=== PATIENT | male | born 1945 | race Caucasian/White ===

== ENCOUNTER 2020-11-12 11:41 | Emergency (ER) | payer OTHER, MEDICARE, SELFPAY ==
[2020-11-12 11:44] VITALS: BP 115/71; PULSE 63; RESP 18; TEMP 36.7; O2SAT 95; BMI 31.8
--- NOTE | 2020-11-12 11:48 | XR_ITS ---
WS: [id number] Exam: XR chest 2V* [id number] Date/Time of Exam: 11/12/2020 11:48 AM Reason For Exam: sob No previous. The lungs are fully inflated. 1 cm partially obscured nodule in the lateral aspect of the right upper lobe. The lungs are otherwise clear. No pleural effusions. Heart size is top limits normal. The medi astinum is not widened. Regional bony elements are intact. A cardiac pacer superimposes the left ches t. Recommendations: Comparison with any prior chest radiographs would be helpful for further workup. [facility] erwise nonemergent CT scan of the chest might be considered for further evaluation. XR/XR chest 2V* [id number] IMPRESSION: 1. Partially obscured 1 cm nodule in the lateral aspect of the right upper lobe . 2. No acute process noted.
--- NOTE | 2020-11-12 13:40 | CT_ITS ---
WS: [id number] CT CHEST ANGIOGRAPHY WITH REFORMATS HISTORY: hemoptysis TECHNIQUE: Contiguous axial images are obtained through the chest during arterial injection of intrav enous contrast. Images are reconstructed to evaluate the pulmonary arteries. MIP imaging also reviewe d. All CT scans at [facility] use at least one of these dose optimization techniques: aut omated exposure control; mA and/or kV adjustment per patient size (includes targeted exams where dose is matched to clinical indication); or iterative reconstruction. CONTRAST: Omnipaque 350; 95 mL IV. DLP: 638.1 mGy.cm COMPARISON: Chest radiograph 11/12/2020 Good opacification of the pulmonary arteries. No central filling defects or pulmonary emboli. Filling defects begin within the segmental branches of the lower lobes. Slightly greater filling defects in the pulmonary arterial system on the RIGHT. These are nonocclusive to near occlusive defects. No RIGH T heart strain. No pericardial or pleural effusions. Noncalcified well-circumscribed nodule RIGHT upper lobe measures 12 mm in diameter. Bibasilar and RIG HT middle lobe opacifications are probably due to pneumonitis. Most significant area of consolidation at the LEFT lung base is progressing towards pneumonia. Several prominent lymph nodes within the med iastinum. LEFT paratracheal lymph node measures 9 mm. Cardiac chambers are slightly enlarged. No nereida cardial pleural effusion. Small hiatal hernia. Cholelithiasis without acute cholecystitis. Incompletely visualized exophytic cystic mass from the RIGHT kidney measures 6.5 x 6.6 cm. There is a n additional exophytic mass of increased density measuring 1.6 cm from the superior pole LEFT kidney. Mild hyperplasia LEFT adrenal gland. Multiple healed rib fractures in the anterolateral RIGHT thorax. CT/CT angio chest PE protcl [id number] IMPRESSION: 1. Nonocclusive pulmonary emboli in the lower lobes bilaterally, RIGHT greater than LEFT. Some of these emboli may actually be chronic. Cannot confirm all of these filling defects are chronic. 2. Increasing consolidation at the LEFT lung base consistent with developing p neumonia. 3. Mild pneumonitis in the RIGHT middle and RIGHT lower lobe. 4. Noncalcified indeterminate 12 mm RIGHT upper lobe pulmonary nodule. Recomme nd follow-up chest CT in 3 months. 5. Bilateral renal masses. Cannot be further evaluated on this chest CT evalua tion. Recommend follow-up in 3 months at the time of the pulmonary nodule reeva luation. Chest and abdomen CT can be performed at that time.
--- NOTE | 2020-11-12 13:41 | ED_ITS ---
HPI - General Adult General: Chief complaint: Upper Respiratory Infection Stated complaint: COUGHING UP MUCUS AND BLOOD Time Seen by Provider: 11/12/20 13:25 History of Present Illness: HPI narrative: This patient is a 75 year old male presenting with cough, shortness of breath, brown sputum with blood. His symptoms started on 11/05 - with a bad cough - and started to have brown sputum with some blood in it about 4 days ago. He was sent here from the [place] due to concerns for pneumonia. He is former smoker, but quit 28 years ago. He has had colon cancer (2014) and that year and in 2017 he had heart problems leading to an AICD placement. He is on Sotolol and aspirin - no other blood thinners. He has had his first COVID shot - he was supposed to get his second today and that was why he was at the [place] clinic. He didn't get the shot due to his symptoms. No fever. No N/V/D. Onset (ago): week(s) (1) Associated symptoms: Reports cough, dyspnea and malaise; Deny fevers/chills, headache(s), nausea, rash, syncope, vomiting or weakness Review of Systems General: Reports: 10 or more systems reviewed and unremarkable except in HPI and below Const: Reports: malaise Eyes: Denies: change in vision ENMT: Denies: odynophagia Card: Denies: syncope Resp: Reports: dyspnea GI: Denies: nausea or vomiting : Denies: flank pain Musc: Denies: neck pain or back pain Skin/Breast: Denies: rash Neuro: Denies: headache(s), numbness in extremities or weakness in extremities Jemal/Lymph: Denies: easy bruising or easy bleeding PFS ED PFSH: Medical History (Updated 11/12/20 @ 17:46 by Jolanta Mayfield MD) Chronic kidney disease (CKD) Essential (primary) hypertension Gout Hyperlipemia ICD (implantable cardioverter-defibrillator) in place Nonischemic cardiomyopathy Ventricular tachycardia Surgical History History of colon resection Family History Father Cancer Dementia Social History Smoking and tobacco status: former smoker Alcohol intake: current Alcohol intake frequency: holidays/special occasions only Marital status: Current occupational status: retired Physical Exam Const: COMMON NORMALS: no acute distress, patient oriented x3, no limitations and alert GENERAL APPEARANCE: cooperative and comfortable HENMT: HEAD & SCALP: normal to inspection FACE & SINUS: normal facial exam Eye: GENERAL EYE: appearance normal, both eyes and all related structures Neck/C-Spine: COMMON NORMALS: supple, no meningeal signs and no JVD Chest: COMMONS NORMALS: normal inspection of the chest Resp: COMMON NORMALS: normal respiratory effort, No use of accessory muscles and clear to auscultation bilaterally AUSCULTATION: clear to auscultation bilaterally Cardio: COMMON NORMALS: no JVD, regular rate, regular rhythm and No murmurs present (Cardio) RATE: regular rate RHYTHM: regular rhythm GI: COMMON NORMALS: Normal to inspection, nondistended, normoactive bowel sounds present, Soft to palpation and non-tender INSPECTION: Yes normal to inspection AUSCULTATION: Yes normoactive bowel sounds PALPATION: Yes Soft to palpation Back/Pelvis: COMMON NORMALS: thoracic and lumbar spine normal to inspection Extremity: COMMON NORMALS: normal to inspection NARRATIVE EXTREMITY EXAM: ecchymoses on the extensor surfaces Neuro: COMMON NORMALS: patient oriented x3, moves all extremities, no focal motor deficits and no sensory deficits noted SENSORIUM/ORIENTATION: Yes alert MENINGEAL SIGNS: Yes no meningeal signs Psych: COMMON NORMALS: mental status grossly normal, cooperative and normal affect Skin: COMMON NORMALS: no rashes or lesions noted and turgor normal GENERAL SKIN EXAM: no rashes or lesions noted and turgor normal Course ED course: Patient here with concerns about pneumonia. Xray with no clear pneumonia, but CT was done for more thorough eval as well as to further evaluate a nodule in the RUL. On the CT, there was suspicion for very small PEs, acute vs chronic. Patient's oxygenation is good - 95% on RA at rest and with ambulation. He is in no distress. No swelling or pain in the legs. We discussed hospitalization vs outpatient management, and as he clinically looks well, and the PEs are tiny, questionable and possibly chronic - we decided together that he was safe to go home. I did start him on eliquis and we discussed the reasoning for that. [facility] understands [facility] I also started him on doxycyline for the pneumonia. We also discussed the pulmonary nodule and also renal cysts that will need a [address] Vital Signs: Vital signs: Vital Signs Temperature 98.0 F 11/12/20 11:44 Pulse Rate 63 11/12/20 18:12 Respiratory Rate 20 H 11/12/20 18:12 Blood Pressure 138/85 11/12/20 18:12 Pulse Oximetry 94 11/12/20 18:12 MDM - General Adult MDM Narrative: Medical decision making narrative: pneumonia, neoplasm, PE, ND, CHF, viral URI, sinusitis Lab Data: Labs: Lab Results 11/12/20 11/12/20 11/12/20 Range/Units 14:02 14:02 14:02 WBC 9.6 (4.0-10.0) 10^3/ uL RBC 5.16 (4.1-5.3) 10^6/u L Hgb 14.8 (11.7-16.6) g/dL Hct 47.2 (42.0-52.0) % MCV 91.5 (80-94) fL MCH 28.7 (28.0-34.0) pg MCHC 31.4 (30.0-36.0) g/dL RDW 14.4 (12.1-15.1) % Plt Count 214 (130-400) 10^3/c mm MPV 10.2 (7.4-10.4) fL Neut % (Auto) 71.4 % Lymph % (Auto) 16.4 % [place] % (Auto) 9.2 % Eos % (Auto) 1.8 % Baso % (Auto) 0.6 % Neut # (Auto) 6.85 (1.8-7.7) 10^3/u L Lymph # (Auto) 1.6 (0.8-4.8) 10^3/u L [place] # (Auto) 0.9 (0.2-0.9) 10^3/u L Eos # (Auto) 0.2 (0.0-0.8) 10^3/u L Baso # (Auto) 0.1 (0.0-0.1) 10^3/u L Nucleated RBC % (a uto) 0 % Nucleated RBCs # 0.0 /100WBC PT 13.60 (12.1-14.9) SECO NDS INR 1.01 (0.8-1.2) Sodium 138 (136-145) mmol/L Potassium 4.2 (3.5-5.1) mmol/L Chloride 104 (98-107) mmol/L Carbon Dioxide 26 (22-29) mmol/L Anion Gap 12.2 (5-19) BUN 20 (8-23) mg/dL Creatinine 1.0 (0.7-1.2) mg/dL GFR Calculation Not Reportable Glucose 115 (65-115) mg/dL Calculated Osmolal ity 290 (285-295) mOsm/k g Calcium 10.2 (8.5-10.5) mg/dL Total Bilirubin 0.8 (0.15-1.2) mg/dL AST 19 (0-40) U/L ALT 21 (0-41) U/L Alkaline Phosphata se 99 (40-130) IU/L Troponin T Baselin e (0-15) ng/L Troponin T 120 Min [place] Delta Troponin T Total Protein 7.3 (6.6-8.7) g/dL Albumin 3.6 (3.5-5.2) g/dL Globulin 3.7 (1.3-4.6) g/dL 11/12/20 11/12/20 Range/Units 14:02 16:12 WBC (4.0-10.0) 10^3/ uL RBC (4.1-5.3) 10^6/u L Hgb (11.7-16.6) g/dL Hct (42.0-52.0) % MCV (80-94) fL MCH (28.0-34.0) pg MCHC (30.0-36.0) g/dL RDW (12.1-15.1) % Plt Count (130-400) 10^3/c mm MPV (7.4-10.4) fL Neut % (Auto) % Lymph % (Auto) % [place] % (Auto) % Eos % (Auto) % Baso % (Auto) % Neut # (Auto) (1.8-7.7) 10^3/u L Lymph # (Auto) (0.8-4.8) 10^3/u L [place] # (Auto) (0.2-0.9) 10^3/u L Eos # (Auto) (0.0-0.8) 10^3/u L Baso # (Auto) (0.0-0.1) 10^3/u L Nucleated RBC % (a uto) % Nucleated RBCs # /100WBC PT (12.1-14.9) SECO NDS INR (0.8-1.2) Sodium (136-145) mmol/L Potassium (3.5-5.1) mmol/L Chloride (98-107) mmol/L Carbon Dioxide (22-29) mmol/L Anion Gap (5-19) BUN (8-23) mg/dL Creatinine (0.7-1.2) mg/dL GFR Calculation Glucose (65-115) mg/dL Calculated Osmolal ity (285-295) mOsm/k g Calcium (8.5-10.5) mg/dL Total Bilirubin (0.15-1.2) mg/dL AST (0-40) U/L ALT (0-41) U/L Alkaline Phosphata se (40-130) IU/L Troponin T Baselin e 23 H (0-15) ng/L Troponin T 120 Min [place] Cancelled Delta Troponin T Cancelled Total Protein (6.6-8.7) g/dL Albumin (3.5-5.2) g/dL Globulin (1.3-4.6) g/dL Discharge Plan Discharge Patient Disposition: Home Clinical Impression: Pulmonary nodule, Renal cyst Pneumonia Qualifiers: Pneumonia type: due to unspecified organism Laterality: left Lung location: lower lobe of lung Qualified Code(s): J18.9 - Pneumonia, unspecified organism Pulmonary emboli Qualifiers: Pulmonary embolism type: unspecified Chronicity: unspecified Acute cor pulmonale presence: without acute cor pulmonale Qualified Code(s): I26.99 - Other pulmonary embolism without acute cor pulmonale Condition: Stable Prescriptions: New Eliquis DVT-PE Treat 30D Start 5 mg (74 tabs) tablets,dose pack See Rx Instructions .ROUTE .COMPLEX Qty: 74 RF: 0 doxycycline hyclate 100 mg capsule 100 mg PO BID 10 Days Qty: 20 RF: 0 No Action sotalol 80 mg tablet 80 mg PO BID@ RF: 0 simvastatin 80 mg tablet 80 mg PO DAILY@1999 RF: 0 potassium chloride 20 mEq tablet extended release 20 meq PO DAILY@799 RF: 0 hydralazine 50 mg tablet 50 mg PO BID@799,1999 RF: 0 allopurinol 100 mg tablet 100 mg PO DAILY@799 RF: 0 lisinopril 40 mg tablet 40 mg PO DAILY@799 RF: 0 aspirin [Enteric Coated Aspirin] 81 mg tablet,delayed release (DR/EC) 81 mg PO DAILY@799 RF: 0 tamsulosin 0.4 mg capsule 0.4 mg PO DAILY@1999 RF: 0 Glucosamine 1 tab PO DAILY@799 RF: 0 amlodipine 5 mg tablet 5 mg PO DAILY@00 RF: 0 Discharge Orders: Discharge ED (Routine); Ordered 11/12/20 Ordered By: Jolanta Mayfield Discharge Diet: Usual diet Discharge Activity: Resume usual activity Patient Instructions: Pulmonary Embolism (GEN), Pneumonia (ED), Opioid Safety Activity Restrictions/Additional Instructions: It is very important that you follow up with your primary care provider - call in the morning to arrange an appointment to discuss the findings on CT today - including very small pulmonary emboli, pneumonia, pulmonary and renal nodules. Return to the ED immediately if you have chest pain, shortness of breath, leg pain or swelling, or any other new or concerning symptoms. Start the Eliquis (blood thinner) in the morning, as you have had a dose of blood thinner in the ED tonight. Start the doxycycline (antibiotic) in the morning as well. Coding Level of Care Code ED [employer] Libr[employer] for [employer] Exam Comprehensive
[2020-11-12 13:56] VITALS: RESP 18
[2020-11-12 14:08] LABS: Basophils # 0.1 10^3/uL (0.0-0.1); Basophils % 0.6 %; Eosinophils # 0.2 10^3/uL (0.0-0.8); Eosinophils % 1.8 %; Hematocrit 47.2 % (42.0-52.0); Hemoglobin 14.8 g/dL (11.7-16.6); Lymphocytes # 1.6 10^3/uL (0.8-4.8); Lymphocytes % 16.4 %; Mean Corpuscular HGB Conc 31.4 g/dL (30.0-36.0); Mean Corpuscular Hemoglobin 28.7 pg (28.0-34.0); Mean Corpuscular Volume 91.5 fL (80-94); Mean Platelet Volume 10.2 fL (7.4-10.4); Monocytes # 0.9 10^3/uL (0.2-0.9); Monocytes % 9.2 %; Neutrophils # 6.85 10^3/uL (1.8-7.7); Neutrophils % 71.4 %; Nucleated Red Blood Cells % 0 %; Platelet Count 214 10^3/cmm (130-400); Red Blood Count 5.16 10^6/uL (4.1-5.3); Red Cell Distribution Width 14.4 % (12.1-15.1); White Blood Count 9.6 10^3/uL (4.0-10.0)
[2020-11-12 14:26] LABS: Alanine Aminotransferase 21 U/L (0-41); Albumin Level 3.6 g/dL (3.5-5.2); Alkaline Phosphatase 99 IU/L (40-130); Anion Gap 12.2 (5-19); Aspartate Amino Transferase 19 U/L (0-40); Blood Urea Nitrogen 20 mg/dL (8-23); Calcium 10.2 mg/dL (8.5-10.5); Carbon Dioxide 26 mmol/L (22-29); Chloride 104 mmol/L (98-107); Globulin 3.7 g/dL (1.3-4.6); Glucose 115 mg/dL (65-115); Osmolality Calculated 290 mOsm/kg (285-295); Potassium 4.2 mmol/L (3.5-5.1); Sodium 138 mmol/L (136-145); Total Bilirubin 0.8 mg/dL (0.15-1.2); Total Protein 7.3 g/dL (6.6-8.7)
[2020-11-12 14:27] LABS: Troponin(5th) Baseline 23 ng/L (0-15)
[2020-11-12] MEDS: iohexol 350 mg/mL 100 mL Btl IV (15:21)
[2020-11-12 15:29] LABS: INR 1.01 (0.8-1.2)
--- NOTE | 2020-11-12 15:40 | ECG_ITS ---
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 Measurements Intervals [place] Rate: 79 P: 105 AK: 211 QRS: -29 QRSD: 113 T: 39 QT: 425 QTc: 490 Interpretive Statements ELECTRONIC ATRIAL PACEMAKER BORDERLINE LEFT AXIS DEVIATION [QRS AXIS < -20] MODERATE INTRAVENTRICULAR CONDUCTION DELAY [110+ ms QRS DURATION] No previous ECG available for comparison Electronically Signed On 11-12-2020 17:53:03 CDT by Tigre Price M.D. [id number]
[2020-11-12] MEDS: enoxaparin 100 mg/mL Syringe SUBCUT (18:02)
[2020-11-12] MEDS: doxycycline 100 mg Tablet PO (18:03)
[2020-11-12 18:12] VITALS: BP 138/85; PULSE 63; RESP 20; O2SAT 94
== END 2020-11-12 18:12 | disposition home or self-care (01) ==
PROVIDERS: Emergency Medicine; Emergency Provider Emergency Medicine
DX: J18.9 Pneumonia, unspecified organism (principal); I26.99 Other pulmonary embolism without acute cor pulmonale; R91.1 Solitary pulmonary nodule; N28.1 Cyst of kidney, acquired; Z79.82 Long term (current) use of aspirin; I10 Essential (primary) hypertension; E78.5 Hyperlipidemia, unspecified; Z95.810 Presence of automatic (implantable) cardiac defibrillator; Z87.891 Personal history of nicotine dependence
CPT/HCPCS: 36415; 71046; 71275; 80053; 84484; 85025; 85610; 93005; 96372; 99285; J1650; Q9967

== ENCOUNTER 2021-05-05 09:37 | Outpatient (CLI) | payer OTHER, SELFPAY ==
--- NOTE | 2021-05-05 09:59 | CT_ITS ---
WS: [id number] CT CHEST TECHNIQUE: Contrast enhanced CT of the chest with coronal and sagittal reformatted images. CLINICAL INFORMATION: 3 MONTH FOLLOW UP ON PULMONARY NODULE COMPARISON: November 12, 2020 DLP: 1045.[address] scans at [facility] use at least one of these dose optimization techniques: automated e xposure control; mA and/or kV adjustment per patient size (includes targeted exams where dose is matc hed to clinical indication); or iterative reconstruction. FINDINGS: Stable noncalcified nodule right upper lobe measuring 12 mm. This is unchanged since November 12, 2020. No other suspicious pulmonary parenchymal opacities. No other suspicious pulmonary parenchymal opacities. No focal pneumonia. No focal consolidation or pl eural fluid. Normal caliber thoracic aorta. No mediastinal or hilar lymphadenopathy. No axillary lymp hadenopathy. Cardiac pacer. Adrenal glands are normal. Diffuse fatty infiltration liver. Cholelithiasis. Partially visualized marquise ateral renal lesions are similar in appearance. Some of these represent renal cysts. Left upper pole lesion measuring 2.3 cm with slight increased attenuation is indeterminate. These can be further eval uated ultrasound. CT/CT chest w con* [id number] IMPRESSION: 1. Noncalcified right upper lobe nodule measuring 12 mm is unchanged since Oct. Recommend 6 month follow-up chest CT. Alternatively this can be fu rther evaluated with PET/CT to assess for FDG activity. 2. Cholelithiasis. 3. Partially visualized bilateral renal lesions some representing renal cysts and others which are incompletely evaluated and indeterminant. Recommend furthe r evaluation with renal ultrasound.
[2021-05-05 10:20] LABS: Blood Urea Nitrogen 14 mg/dL (8-23)
[2021-05-05] MEDS: iodixanol 320 mg/mL 100mL Btl IV (10:33)
== END 2021-05-05 09:38 | disposition home or self-care (01) ==
PROVIDERS: Visit Provider Family Medicine
DX: R91.1 Solitary pulmonary nodule (principal); K80.20 Calculus of gallbladder without cholecystitis without obstruction; N28.9 Disorder of kidney and ureter, unspecified
CPT/HCPCS: 71260; 82565; 84520; Q9967

== ENCOUNTER 2021-07-06 07:18 | Outpatient (CLI) | payer OTHER, SELFPAY ==
--- NOTE | 2021-07-06 07:22 | US_ITS ---
WS: [id number] ULTRASOUND ABDOMEN CLINICAL INFORMATION: RENAL CYST GALLSTONES COMPARISON: None. FINDINGS: Liver Size: Enlarged Craniocaudal length: 16.8 cm. Echogenicity: Normal. Surface nodularity: None. Mass (size and location): None. Bile ducts Intrahepatic ducts: Normal. Common bile duct diameter: 0.6 cm. Gallbladder Cholelithiasis Gallstones: None. Gallbladder sludge: None. Gallbladder wall thickening: None. Pericholecystic fluid: None. Sonographic Amaya sign: Absent. Pancreas Normal as visualized. Spleen Splenomegaly: None. Craniocaudal length: 12.1 cm. Isoechoic splenic lobulation measuring 4.0 x 3.5 cm with normal FDG activity in the recent PET/CT. Th is is nonspecific but of doubtful clinical significance. Right kidney: Complex lobulated right renal cysts with septations as seen on the recent PET/CT. Hydronephrosis: None. Size: 10.1 cm x 5.9 cm x 5.4 cm Left kidney: Small simple left renal cyst Hydronephrosis: None. Size: 11.4 cm x 4.0 cm x 5.4 cm. Abdominal aorta and IVC Visualized portions are normal. Ascites: None. US/US abdomen complete* [id number] IMPRESSION: 1. Mild hepatomegaly. 2. Cholelithiasis. No gallbladder wall thickening or pericholecystic fluid. No rmal common bile duct. 3. No hydronephrosis in either kidney. 4. Complex right renal cyst with thick septations largest measures 7.9 x 6.0 x 6.2 cm in the right mid kidney. Recommend continued surveillance. These were F DG negative on the recent PET/CT. 5. Small simple cyst left kidney measuring 2.1 x 2.0 cm
== END 2021-07-06 07:19 | disposition home or self-care (01) ==
LOC: US 07:19
PROVIDERS: PCP Family Medicine; Visit Provider Family Medicine
DX: N28.1 Cyst of kidney, acquired (principal); K80.80 Other cholelithiasis without obstruction; R16.0 Hepatomegaly, not elsewhere classified
CPT/HCPCS: 76700; 93976

== ENCOUNTER → 2021-07-30 15:17 | Outpatient (BNVA) | payer OTHER, SELFPAY | PROVIDERS: PCP Family Medicine; Visit Provider Nurse Practitioner Family | DX: I42.8 Other cardiomyopathies (principal) | CPT/HCPCS: 80048; 83735; 85025 ==

== ENCOUNTER 2021-08-10 12:29 | Observation (INO) | payer OTHER, MEDICARE, SELFPAY ==
[2021-08-10] VITALS (8 sets, daily range): BP systolic 82–118; BP diastolic 56–77; PULSE 67–82; RESP 16–24; TEMP 36.6–36.7; O2SAT 93–96; BMI 31.5
--- NOTE | 2021-08-10 12:41 | ECG_ITS ---
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1945 Requested By: Van Pyle Order Number: [id number] Reading MD: JOSE FORTUNE Measurements Intervals [place] Rate: 74 P: -61 [place]: 201 QRS: 114 QRSD: 99 T: 69 QT: 378 QTc: 420 Interpretive Statements ELECTRONIC ATRIAL PACEMAKER POSSIBLE RIGHT VENTRICULAR HYPERTROPHY [SOME/ALL OF: PROMINENT R IN V1, LATE TRANSITION, RAD, ADAN, SSS] POSSIBLE ANTERIOR MYOCARDIAL INFARCTION , PROBABLY OLD [30 ms Q WAVE IN V3/V4, OR R < 0.2 mV IN V4] Compared to ECG 11/12/2020 15:30:18 Myocardial infarct finding now present Intraventricular conduction delay no longer present Electronically Signed On 08-10-2021 18:58:32 [employer] by JOSE FORTUNE [id number]
--- NOTE | 2021-08-10 12:45 | XR_ITS ---
WS: [id number] Exam: XR chest 1V portable [id number] Date/Time of Exam: 08/10/2021 12:49 PM Reason For Exam: chest pain Comparison 11/12/2020. The lungs are clear and fully expanded. Unremarkable cardiomediastinal silhouette for technique. No p leural effusions. A cardiac pacer superimposes the left chest. Degenerative change of the right shoul delmy with high riding humeral head suggesting rotator cuff tear. XR/XR chest 1V portable [id number] IMPRESSION: 1. No acute cardiopulmonary finding.
--- NOTE | 2021-08-10 12:48 | ED_ITS ---
Documented by User: MIKIE Alcantara 08/11/21 07:08 HPI - Chest Pain General: Chief Complaint: Chest Pain Stated Complaint: DEFIB GOING OFF Time Seen by Provider: 08/10/21 12:48 Source: patient Mode of arrival: wheelchair Limitations: no limitations History of Present Illness: HPI narrative: Patient is a 76-year-old male who presents to ED today with a complaint that his defibrillator is going off. Family with patient states he has not been feeling well over the past several days and has had intermittent fevers. He has also had diarrhea and a cough. He apparently was seen at the [facility] and told to come to the ED for further evaluation. [facility] ED PFSH: Medical History (Updated 08/18/21 @ 06:37 by Van Holguin DO) Chronic kidney disease (CKD) Essential (primary) hypertension Gout History of colon cancer Hyperlipemia ICD (implantable cardioverter-defibrillator) in place Nonischemic cardiomyopathy Ventricular tachycardia Surgical History History of colon resection Family History Father Cancer Dementia Social History Alcohol intake: current Alcohol intake frequency: holidays/special occasions only Marital status: Current occupational status: retired Physical Exam Const: COMMON NORMALS: no acute distress, patient oriented x3, no limitations and alert GENERAL APPEARANCE: cooperative Resp: COMMON NORMALS: normal respiratory effort and clear to auscultation bilaterally AUSCULTATION: clear to auscultation bilaterally Cardio: COMMON NORMALS: regular rate and regular rhythm (occasional ectopic beat ) RATE: regular rate RHYTHM: regular rhythm (occasional ectopic beat ) Neuro: COMMON NORMALS: patient oriented x3 SENSORIUM/ORIENTATION: Yes alert Course Vital Signs: Vital signs: Vital Signs Temperature 98.2 F 08/13/21 11:08 Pulse Rate 70 08/13/21 11:08 Respiratory Rate 18 08/13/21 11:08 Blood Pressure 136/89 08/13/21 11:08 Pulse Oximetry 94 08/13/21 11:08 MDM - Chest Pain MDM Narrative: Medical decision making narrative: Brief history and physical exam was performed as part of the triage process. Due to current ED wait time patient will be placed in waiting room until a room becomes available. Explained to patient he/she will be seen in order of severity. Patient is currently safe to wait in the waiting room until we can get them placed. Patient informed that if condition worsens at any time to please let the glass technician know. Lab Data: Labs: Lab Results 08/10/21 08/10/21 08/10/21 14:15 14:15 14:15 WBC 9.4 10^3/uL 10^3/ uL (4.0-10.0) RBC 5.67 10^6/uL H 10 ^6/uL (4.1-5.3) Hgb 16.3 g/dL g/dL (11.7-16.6) Hct 50.3 % % (42.0-52.0) MCV 88.7 fl fl (80-94) MCH 28.7 pg pg (28.0-34.0) MCHC 32.4 g/dL g/dL (30.0-36.0) RDW 14.5 % % (12.1-15.1) Plt Count 163 10^3/cmm 10^3 /cmm (130-400) MPV 10.2 fL fL (7.4-10.4) Neut % (Auto) 80.3 % % Lymph % (Auto) 9.0 % % [place] % (Auto) 9.6 % % Eos % (Auto) 0.1 % % Baso % (Auto) 0.4 % % Neut # (Auto) 7.56 10^3/uL 10^3 /uL (1.8-7.7) Lymph # (Auto) 0.9 10^3/uL 10^3/ uL (0.8-4.8) [place] # (Auto) 0.9 10^3/uL 10^3/ uL (0.2-0.9) Eos # (Auto) 0.0 10^3/uL 10^3/ uL (0.0-0.8) Baso # (Auto) 0.0 10^3/uL 10^3/ uL (0.0-0.1) Nucleated RBC % (a uto) 0 % % Nucleated RBCs # 0.0 /100WBC /100W BC Sodium 136 mmol/L mmol/L (136-145) Potassium 4.9 mmol/L mmol/L (3.5-5.1) Chloride 99 mmol/L mmol/L (98-107) Carbon Dioxide 21 mmol/L L mmol/ L (22-29) Anion Gap 20.9 H (5-19) BUN 22 mg/dL mg/dL (8-23) Creatinine 1.5 mg/dL H mg/dL (0.7-1.2) GFR Calculation Not Reportable Glucose 127 mg/dL H mg/dL (65-115) Calculated Osmolal ity 287 mOsm/kg mOsm/ kg (285-295) Calcium 9.6 mg/dL mg/dL (8.5-10.5) Magnesium Total Bilirubin 0.8 mg/dL mg/dL (0.15-1.2) AST 37 U/L U/L (0-40) ALT 32 U/L U/L (0-41) Alkaline Phosphata se 101 IU/L IU/L (40-130) Troponin T Baselin e 39 ng/L H ng/L (0-15) Troponin T 120 Min [place] Troponin T NT-Pro-B Natriuret Pep Total Protein 7.8 g/dL g/dL (6.6-8.7) Albumin 4.1 g/dL g/dL (3.5-5.2) Globulin 3.7 g/dL g/dL (1.3-4.6) Procalcitonin Coronavirus 229E ( PCR) SARS-CoV-2 (PCR) 08/10/21 08/10/21 08/10/21 14:23 16:15 16:15 WBC RBC Hgb Hct MCV MCH MCHC RDW Plt Count MPV Neut % (Auto) Lymph % (Auto) [place] % (Auto) Eos % (Auto) Baso % (Auto) Neut # (Auto) Lymph # (Auto) [place] # (Auto) Eos # (Auto) Baso # (Auto) Nucleated RBC % (a uto) Nucleated RBCs # Sodium Potassium Chloride Carbon Dioxide Anion Gap BUN Creatinine GFR Calculation Glucose Calculated Osmolal ity Calcium Magnesium 1.8 mg/dL mg/dL (1.7-2.3) Total Bilirubin AST ALT Alkaline Phosphata se Troponin T Baselin e Troponin T 120 Min [place] 33.85 ng/L H ng/L (0-15) Delta Troponin T -5.15 ABS# L ABS# (0-10) NT-Pro-B Natriuret Pep 1034 pg/mL H pg/m L (0-125) Total Protein Albumin Globulin Procalcitonin Coronavirus 229E ( PCR) Not detected (NOT DETECT) SARS-CoV-2 (PCR) Detected A (NOT DETECT) 08/10/21 16:15 WBC RBC Hgb Hct MCV MCH MCHC RDW Plt Count MPV Neut % (Auto) Lymph % (Auto) [place] % (Auto) Eos % (Auto) Baso % (Auto) Neut # (Auto) Lymph # (Auto) [place] # (Auto) Eos # (Auto) Baso # (Auto) Nucleated RBC % (a uto) Nucleated RBCs # Sodium Potassium Chloride Carbon Dioxide Anion Gap BUN Creatinine GFR Calculation Glucose Calculated Osmolal ity Calcium Magnesium Total Bilirubin AST ALT Alkaline Phosphata se Troponin T Baselin e Troponin T 120 Min [place] Troponin T NT-Pro-B Natriuret Pep Total Protein Albumin Globulin Procalcitonin 0.49 ng/mL ng/mL (0-0.5) Coronavirus 229E ( PCR) SARS-CoV-2 (PCR) Discharge Plan Discharge Patient Disposition: Admitted As Inpatient Admit Provider: Desmond Ram Clinical Impression: ICD (implantable cardioverter-defibrillator) discharge, Cardiomyopathy, nonischemic, Ventricular fibrillation, paroxysmal, COVID-19, Hypomagnesemia Condition: Stable Discharge Diet: Cardiac Discharge Activity: Increase activity as tolerated Coding Level of Care Code 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 He states that discharged last night and then around again this morning this morning it happened he was laying in bed. He has a known history of cardiomyopathy and he is on sotalol as well as apixaban. He is not recently changed any medications. He was somewhat hypotensive when he first arrived here today. MD complaint: chest pain Associated symptoms: Deny abdominal pain, dyspnea, fever(s), nausea or vomiting Review of Systems Const: Denies: fever(s), chills, body aches, change in appetite, fatigue or malaise ENMT: Denies: throat pain, ear or mastoid pain, nasal discharge or nasal congestion Card: Denies: chest pain, edema, dyspnea on exertion or orthopnea Resp: Denies: dyspnea, productive cough or non-productive cough GI: Denies: abdominal pain, nausea, vomiting, hematemesis, coffee ground emesis, diarrhea, constipation, bloating, hematochezia or melena : Denies: flank pain, dysuria, urinary frequency or urinary urgency Skin/Breast: Denies: rash or pruritus PFSH ED PFSH: Medical History (Updated 08/18/21 @ 06:37 by Van Holguin DO) Chronic kidney disease (CKD) Essential (primary) hypertension Gout History of colon cancer Hyperlipemia ICD (implantable cardioverter-defibrillator) in place Nonischemic cardiomyopathy Ventricular tachycardia Surgical History History of colon resection Family History Father Cancer Dementia Social History Alcohol intake: current Alcohol intake frequency: holidays/special occasions only Marital status: Current occupational status: retired Physical Exam Const: COMMON NORMALS: no acute distress GENERAL APPEARANCE: cooperative and comfortable ORIENTATION/CONSCIOUSNESS: Yes awake, Yes oriented to person, Yes oriented to place and Yes oriented to time HENMT: COMMON NORMALS: normocephalic, atraumatic and hearing grossly normal bilaterally HEAD & SCALP: normocephalic and atraumatic Neck/C-Spine: COMMON NORMALS: no JVD Resp: COMMON NORMALS: normal respiratory effort, No retractions, No use of accessory muscles and clear to auscultation bilaterally AUSCULTATION: clear to auscultation bilaterally Cardio: COMMON NORMALS: no JVD, regular rate, regular rhythm and No murmurs present (Cardio) RATE: regular rate RHYTHM: regular rhythm GI: COMMON NORMALS: Soft to palpation and No hepatosplenomegaly present AUSCULTATION: Yes normoactive bowel sounds PALPATION: Yes Soft to palpation, No Tenderness to palpation present (GI), No Guarding due to palpation present (GI) and Yes No hepatosplenomegaly present Extremity: COMMON NORMALS: normal to inspection, capillary refill normal, no clubbing, cyanosis or edema, no calf tenderness and no pedal edema Neuro: SENSORIUM/ORIENTATION: Yes oriented to person, Yes oriented to place and Yes oriented to time Skin: COMMON NORMALS: no rashes or lesions noted GENERAL SKIN EXAM: no rashes or lesions noted Course Vital Signs: Vital signs: Vital Signs Temperature 98.2 F 08/13/21 11:08 Pulse Rate 70 08/13/21 11:08 Respiratory Rate 18 08/13/21 11:08 Blood Pressure 136/89 08/13/21 11:08 Pulse Oximetry 94 08/13/21 11:08 MDM - Chest Pain MDM Narrative: Medical decision making narrative: Patient did have a discharge according to the report. Organ to go ahead and admit him discussed with hospitalist and with cardiology. Orders are written. Incidentally patient was found to have COVID. If it were not for his cardiac issues he would have been discharged home regarding his COVID. I discussed with the patient and he wishes to proceed with monoclonal antibody disease administered in the emergency room. Lab Data: Labs: Lab Results 08/10/21 08/10/21 08/10/21 14:15 14:15 14:15 WBC 9.4 10^3/uL 10^3/ uL (4.0-10.0) RBC 5.67 10^6/uL H 10 ^6/uL (4.1-5.3) Hgb 16.3 g/dL g/dL (11.7-16.6) Hct 50.3 % % (42.0-52.0) MCV 88.7 fl fl (80-94) MCH 28.7 pg pg (28.0-34.0) MCHC 32.4 g/dL g/dL (30.0-36.0) RDW 14.5 % % (12.1-15.1) Plt Count 163 10^3/cmm 10^3 /cmm (130-400) MPV 10.2 fL fL (7.4-10.4) Neut % (Auto) 80.3 % % Lymph % (Auto) 9.0 % % [place] % (Auto) 9.6 % % Eos % (Auto) 0.1 % % Baso % (Auto) 0.4 % % Neut # (Auto) 7.56 10^3/uL 10^3 /uL (1.8-7.7) Lymph # (Auto) 0.9 10^3/uL 10^3/ uL (0.8-4.8) [place] # (Auto) 0.9 10^3/uL 10^3/ uL (0.2-0.9) Eos # (Auto) 0.0 10^3/uL 10^3/ uL (0.0-0.8) Baso # (Auto) 0.0 10^3/uL 10^3/ uL (0.0-0.1) Nucleated RBC % (a uto) 0 % % Nucleated RBCs # 0.0 /100WBC /100W BC Sodium 136 mmol/L mmol/L (136-145) Potassium 4.9 mmol/L mmol/L (3.5-5.1) Chloride 99 mmol/L mmol/L (98-107) Carbon Dioxide 21 mmol/L L mmol/ L (22-29) Anion Gap 20.9 H (5-19) BUN 22 mg/dL mg/dL (8-23) Creatinine 1.5 mg/dL H mg/dL (0.7-1.2) GFR Calculation Not Reportable Glucose 127 mg/dL H mg/dL (65-115) Calculated Osmolal ity 287 mOsm/kg mOsm/ kg (285-295) Calcium 9.6 mg/dL mg/dL (8.5-10.5) Magnesium Total Bilirubin 0.8 mg/dL mg/dL (0.15-1.2) AST 37 U/L U/L (0-40) ALT 32 U/L U/L (0-41) Alkaline Phosphata se 101 IU/L IU/L (40-130) Troponin T Baselin e 39 ng/L H ng/L (0-15) Troponin T 120 Min [place] Troponin T NT-Pro-B Natriuret Pep Total Protein 7.8 g/dL g/dL (6.6-8.7) Albumin 4.1 g/dL g/dL (3.5-5.2) Globulin 3.7 g/dL g/dL (1.3-4.6) Procalcitonin Coronavirus 229E ( PCR) SARS-CoV-2 (PCR) 08/10/21 08/10/21 08/10/21 14:23 16:15 16:15 WBC RBC Hgb Hct MCV MCH MCHC RDW Plt Count MPV Neut % (Auto) Lymph % (Auto) [place] % (Auto) Eos % (Auto) Baso % (Auto) Neut # (Auto) Lymph # (Auto) [place] # (Auto) Eos # (Auto) Baso # (Auto) Nucleated RBC % (a uto) Nucleated RBCs # Sodium Potassium Chloride Carbon Dioxide Anion Gap BUN Creatinine GFR Calculation Glucose Calculated Osmolal ity Calcium Magnesium 1.8 mg/dL mg/dL (1.7-2.3) Total Bilirubin AST ALT Alkaline Phosphata se Troponin T Baselin e Troponin T 120 Min [place] 33.85 ng/L H ng/L (0-15) Delta Troponin T -5.15 ABS# L ABS# (0-10) NT-Pro-B Natriuret Pep 1034 pg/mL H pg/m L (0-125) Total Protein Albumin Globulin Procalcitonin Coronavirus 229E ( PCR) Not detected (NOT DETECT) SARS-CoV-2 (PCR) Detected A (NOT DETECT) 08/10/21 16:15 WBC RBC Hgb Hct MCV MCH MCHC RDW Plt Count MPV Neut % (Auto) Lymph % (Auto) [place] % (Auto) Eos % (Auto) Baso % (Auto) Neut # (Auto) Lymph # (Auto) [place] # (Auto) Eos # (Auto) Baso # (Auto) Nucleated RBC % (a uto) Nucleated RBCs # Sodium Potassium Chloride Carbon Dioxide Anion Gap BUN Creatinine GFR Calculation Glucose Calculated Osmolal ity Calcium Magnesium Total Bilirubin AST ALT Alkaline Phosphata se Troponin T Baselin e Troponin T 120 Min [place] Troponin T NT-Pro-B Natriuret Pep Total Protein Albumin Globulin Procalcitonin 0.49 ng/mL ng/mL (0-0.5) Coronavirus 229E ( PCR) SARS-CoV-2 (PCR) Discharge Plan Discharge Patient Disposition: Admitted As Inpatient Admit Provider: Desmond Ram Clinical Impression: ICD (implantable cardioverter-defibrillator) discharge, Cardiomyopathy, nonischemic, Ventricular fibrillation, paroxysmal, COVID-19, Hypomagnesemia Condition: Stable Discharge Diet: Cardiac Discharge Activity: Increase activity as tolerated Coding Level of Care Code 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[employer] Fwd Exam Comprehensive Monoclonal Antibody - Acute Inclusion/Exclusion Criteria [facility] COVID test results: No Data to Display weight >/= 40 kg age >/= 65 and age >/= 55 and has diabetes not requiring hospitalization (Patient being hospitalized for a non-Covid related issue), not requiring oxygen (if not chronically on oxygen) and no increase oxygen requirement (if chronically on oxygen) Patient education patient/family/caregiver received/reviewed fact sheet, Emergency Use Authorization/unapproved drug status discussed with patient/family/caregiver, alternatives to this treatment discussed with patient/family/caregiver, risks and benefits of medication reviewed with patient/family/caregiver, patient/family/caregiver given opportunity for questions, which were answered and patient consents to receiving Monoclonal Antibody Treatment Plan for treatment Meets criteria for Monoclonal Antibody infusion Ordering Monoclonal Antibody infusion for today Other information Patient been hospitalized because of his defibrillator going off not related to COVID he has no other COVID symptoms that would otherwise prevent him from receiving monoclonal antibodies discussed with hospitalist we are in agreement that it would be for this patient's benefit to be treated.
[2021-08-10 14:31] LABS: Basophils % 0.4 %; Eosinophils % 0.1 %; Hematocrit 50.3 % (42.0-52.0); Hemoglobin 16.3 g/dL (11.7-16.6); Lymphocytes # 0.9 10^3/uL (0.8-4.8); Mean Corpuscular HGB Conc 32.4 g/dL (30.0-36.0); Mean Corpuscular Hemoglobin 28.7 pg (28.0-34.0); Mean Corpuscular Volume 88.7 fl (80-94); Mean Platelet Volume 10.2 fL (7.4-10.4); Monocytes # 0.9 10^3/uL (0.2-0.9); Monocytes % 9.6 %; Neutrophils # 7.56 10^3/uL (1.8-7.7); Neutrophils % 80.3 %; Nucleated Red Blood Cells % 0 %; Platelet Count 163 10^3/cmm (130-400); Red Blood Count 5.67 10^6/uL (4.1-5.3); Red Cell Distribution Width 14.5 % (12.1-15.1); White Blood Count 9.4 10^3/uL (4.0-10.0)
--- NOTE | 2021-08-10 14:46 | ECG_ITS ---
[facility] Test Date: 2021-08-10 Pat Name: Frederic Chan Department: Room: Gender: Male Distresser: : 1945 Requested By: Lore Benitez Order Number: [id number] Felicita MD: JOSE FORTUNE Measurements Intervals [place] Rate: 73 P: 103 NC: 207 QRS: -59 QRSD: 98 T: 10 QT: 385 QTc: 425 Interpretive Statements ELECTRONIC ATRIAL PACEMAKER LEFT ANTERIOR FASCICULAR BLOCK [QRS AXIS <= -45, QR IN I, RS IN II] POSSIBLE ANTERIOR MYOCARDIAL INFARCTION , OF INDETERMINATE AGE [30 ms Q WAVE IN V3/V4, OR R < 0.2 mV IN V4] Compared to ECG 08/10/2021 12:40:01 Left anterior fascicular block now present Myocardial infarct finding still present Electronically Signed On 08-10-2021 19:04:20 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
[2021-08-10] MEDS: aspirin 81 mg Chew Tablet 324 MG PO (14:48)
[2021-08-10 14:49] LABS: Alanine Aminotransferase 32 U/L (0-41); Albumin Level 4.1 g/dL (3.5-5.2); Alkaline Phosphatase 101 IU/L (40-130); Anion Gap 20.9 (5-19); Aspartate Amino Transferase 37 U/L (0-40); Blood Urea Nitrogen 22 mg/dL (8-23); Calcium 9.6 mg/dL (8.5-10.5); Carbon Dioxide 21 mmol/L (22-29); Chloride 99 mmol/L (98-107); Globulin 3.7 g/dL (1.3-4.6); Glucose 127 mg/dL (65-115); Osmolality Calculated 287 mOsm/kg (285-295); Potassium 4.9 mmol/L (3.5-5.1); Sodium 136 mmol/L (136-145); Total Bilirubin 0.8 mg/dL (0.15-1.2); Total Protein 7.8 g/dL (6.6-8.7)
[2021-08-10 14:52] LABS: Troponin(5th) Baseline 39 ng/L (0-15)
[2021-08-10 16:22] LABS: Adenovirus Not Detected (NOT DETECT); Chlamydia Pneumoniae Not Detected (NOT DETECT); Coronavirus 229E,HKU1,NL63,OC4 Not Detected (NOT DETECT); Human Metapneumovirus Not Detected (NOT DETECT); Human Rhinovirus/Enterovirus Not Detected (NOT DETECT); Influenza A Not Detected (NOT DETECT); Influenza A H1 Not Detected (NOT DETECT); Influenza A H1-2009 Not Detected (NOT DETECT); Influenza A H3 Not Detected (NOT DETECT); Influenza B Not Detected (NOT DETECT); Mycoplasma Pneumoniae Not Detected (NOT DETECT); Parainfluenza Virus Type 1 Not Detected (NOT DETECT); Parainfluenza Virus Type 2 Not Detected (NOT DETECT); Parainfluenza Virus Type 3 Not Detected (NOT DETECT); Parainfluenza Virus Type 4 Not Detected (NOT DETECT); Respiratory Syncytial Virus A Not Detected (NOT DETECT); Respiratory Syncytial Virus B Not Detected (NOT DETECT); SARS-COV-2 Detected (NOT DETECT)
--- NOTE | 2021-08-10 16:55 | PM.HP ---
Providers/Chief Complaint Primary Care Provider: Priscilla Long MD Chief Complaint: DEFIB GOING OFF History of Present Illness Frederic A Tutone is a 76 year old male with history of nonischemic cardiomyopathy status post AICD placement, presented to the hospital for evaluation after his AICD discharge. Patient is stating that he has been having fever and diarrhea for last 1 week with some dry cough. On July 29 he had AICD discharge, his second discharge was on 08/09 while he was resting in his bed. He did not experience any syncopal event, chest pain, shortness of breath, orthopnea, PND. Today he went to [place] [facility] where he was asked to get Covid test. He came to the [facility] ER where he was tested positive for COVID-19, yesterday interrogation revealed multiple episodes and AICD discharge. Dr. Parada recommended observation. He was hypotensive in the ER, received 250 mL bolus, he was given mag sulfate 1 g along bam infusion and aspirin. Antihypertensive regimen were held by myself, continue sotalol. Patient at the time of my evaluation was asymptomatic, blood pressure 111/70 heart rate 70s, no active symptoms other than dry cough. Patient is stating that he is actually feeling fine. He consider himself very active for his age, he is enjoying his assisted life, is a member of [employer]. Troponin without significant delta BNP 1000 Chest x-ray shows no acute pathology or findings His Covid symptoms started roughly a week ago. Review of Systems Const: Reports: fever(s), chills and fatigue Eyes: Denies: change in vision ENMT: Denies: throat pain Card: Denies: chest pain or palpitations Resp: Reports: non-productive cough GI: Reports: diarrhea; Denies: abdominal pain : Denies: flank pain Musc: Denies: neck pain Skin/Breast: Denies: rash Neuro: Denies: headache(s) Psych: Denies: anxiety Endo: Denies: polyuria Jemal/Lymph: Denies: easy bruising All/Imm: Denies: urticaria Medications/Allergies Home Medications Medication Instructions Recorded Confirmed Last Taken Type allopurinol 100 mg tablet 100 mg PO BID 11/05/19 08/10/21 08/10/21 07:30 History aspirin 81 mg tablet,delayed 81 mg PO DAILY@0800 03/08/10/21 08/10/21 07:30 History release hydralazine 50 mg tablet 50 mg PO BID@0800,1999 tab 11/05/19 08/10/21 08/10/21 07:30 History lisinopril 40 mg tablet 40 mg PO DAILY@0800 11/05/19 08/10/21 08/10/21 07:30 History potassium chloride 20 mEq 20 meq PO DAILY@0800 11/05/19 08/10/21 08/10/21 07:30 History tablet,extended release simvastatin 80 mg tablet 40 mg PO DAILY@199911/05/19 08/10/21 08/09/21 History sotalol 80 mg tablet 80 mg PO BID@0800,199911/05/19 08/10/21 08/10/21 07:30 History amlodipine 5 mg PO DAILY@0800 11/12/20 08/10/21 08/10/21 07:30 History tamsulosin 0.4 mg PO DAILY@199911/12/20 08/10/21 08/09/21 History Vitamin D3 2 cap PO DAILY 08/10/21 08/10/21 08/10/21 History apixaban 2.5 mg PO BID 08/10/21 08/10/21 08/10/21 07:30 History ascorbic acid (vitamin C) [Vitamin 1,000 mg PO DAILY 08/10/21 08/10/21 08/10/21 History C] glucos sul [id number] 1 cap PO BID 08/10/21 08/10/21 Unknown History [Glucosamine Chondroitin] zinc 50 mg PO DAILY 08/10/21 08/10/21 08/10/21 History Allergies Allergy/AdvReac Type Severity Reaction Status Date / Time No Known Allergies Allergy Verified 08/10/21 15:30 PFSH Acute PFSH: Medical History Chronic kidney disease (CKD) Essential (primary) hypertension Gout Hyperlipemia ICD (implantable cardioverter-defibrillator) in place Nonischemic cardiomyopathy Ventricular tachycardia Surgical History History of colon resection Family History Father Cancer Dementia Social History Alcohol intake: current Alcohol intake frequency: holidays/special occasions only Marital status: Current occupational status: retired Vitals/I&O/Wt Last Vital Signs Temp 98.1 F 08/10/21 12:42 Pulse 70 08/10/21 14:16 Resp 16 08/10/21 12:42 BP 100/70 08/10/21 14:16 Pulse Ox 96 08/10/21 14:16 Weight last 48 hrs Weight 99.79 kg Physical Exam Narrative: EXAM NARRATIVE: Patient sitting comfortably in his bed Saturating well on room air Blood pressure 111/70 Heart rate 70s EOMI, PERRLA Nonfocal neuro exam No acute respiratory distress No conversational dyspnea Appears euvolemic Abdomen soft S1-S2, does not look fluid overloaded No audible stridor or wheezing Data : 08/11/21 03:25 08/11/21 03:25 A&P Assessment and plan (1) ICD (implantable cardioverter-defibrillator) discharge: Status: Acute (2) Nonischemic cardiomyopathy: Status: Acute (3) ICD (implantable cardioverter-defibrillator) in place: Status: Acute (4) Ventricular fibrillation: Status: Acute Additional A&P Information AICD discharge Continue sotalol Hold antihypertensive for now COVID-19, symptoms started 1 week ago, not requiring oxygen, received bam infusion in the ER, patient is stating his only symptom right now is dry cough, he is not even feeling fatigued or lethargic Hypomagnesemia: Magnesium repleted Potassium 4.9, patient states potassium on daily basis Acute on chronic kidney disease: Creatinine is 1.5, hold lisinopril, he was hypotensive, will monitor for now, received 250 bolus in the ER Patient for now is full code, he stating that he would like to discuss goals of care with his and then decide however he is leaning towards no intubation, he is okay with CPR if required, I did explain him what entails full code versus DNR/DNI, he would like to think about it overnight Cardiac diet Attestations Medical Necessity Statement*: Discharge within 48 hours Time Spent in Patient Care: Greater than 35 minutes Coding Level of Care Code 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
[2021-08-10 17:00] LABS: Troponin 5 2HR 33.85 ng/L (0-15)
[2021-08-10 17:04] LABS: Troponin 5 2HR Delta -5.15 ABS# (0-10)
[2021-08-10 17:07] LABS: Magnesium 1.8 mg/dL (1.7-2.3); NT Pro B Type Natriuretic Pept 1034 pg/mL (0-125)
--- NOTE | 2021-08-10 17:41 | P.CONIM_ITS ---
Providers/Reason For Consult Consulting Physician/Specialty*: Dr. 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 He was placed on amiodarone and defibrillator was placed in 2013. At some point, he was switched from amiodarone to sotalol 80 mg BID. He also has hypertension and gout. He is here with vague complaints of intermittent fever and diarrhea. He was vaccinated with Moderna COVID-19 vaccine with second dose in 10/2020. 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 He felt ICD discharge yesterday/earlier today and hence came to ER for further evaluation. He was seen in [facility] about 10 days back and was noted to have VT with ATP's and ICD discharges. Labs were checked but no medications were changed. Multiple VT/VF episodes with ATP's and 2 shocks once on 07/29 and another one 08/10/21. I do not have EGM's available. Review of Systems Const: Denies: fever(s), chills, body aches, change in appetite, fatigue or malaise ENMT: Denies: throat pain, nasal discharge or nasal congestion Card: Denies: chest pain, edema, dyspnea on exertion or orthopnea Resp: Denies: dyspnea, productive cough or non-productive cough GI: Denies: abdominal pain, nausea, vomiting, hematemesis, diarrhea, constipation, hematochezia or melena : Denies: flank pain, dysuria, urinary frequency or urinary urgency Skin/Breast: Denies: rash or pruritus Psych: Denies: anxiety or depression Meds/Allergies Home Medications and Allergies Home Medications Medication Instructions Recorded Confirmed Last Taken Type allopurinol 100 mg tablet 100 mg PO BID 11/05/19 08/10/21 08/10/21 07:30 History aspirin 81 mg tablet,delayed 81 mg PO DAILY@0800 11/05/19 08/10/21 08/10/21 07:30 History release hydralazine 50 mg tablet 50 mg PO BID@0800,1999 tab 11/05/19 08/10/21 08/10/21 07:30 History lisinopril 40 mg tablet 40 mg PO DAILY@0800 11/05/19 08/10/21 08/10/21 07:30 History potassium chloride 20 mEq 20 meq PO DAILY@0800 11/05/19 08/10/21 08/10/21 07:30 History tablet,extended release simvastatin 80 mg tablet 40 mg PO DAILY@199911/05/19 08/10/21 08/09/21 History sotalol 80 mg tablet 80 mg PO BID@0800,199911/05/19 08/10/21 08/10/21 07:30 History amlodipine 5 mg PO DAILY@0800 11/12/20 08/10/21 08/10/21 07:30 History tamsulosin 0.4 mg PO DAILY@199911/12/20 08/10/21 08/09/21 History Vitamin D3 2 cap PO DAILY 08/10/21 08/10/21 08/10/21 History apixaban 2.5 mg PO BID 08/10/21 08/10/21 08/10/21 07:30 History ascorbic acid (vitamin C) [Vitamin 1,000 mg PO DAILY 08/10/21 08/10/21 08/10/21 History C] glucos sul 5DMs-ikd-slxxt-C-Mn 1 cap PO BID 08/10/21 08/10/21 Unknown History [Glucosamine Chondroitin] zinc 50 mg PO DAILY 08/10/21 08/10/21 08/10/21 History Allergies Allergy/AdvReac Type Severity Reaction Status Date / Time No Known Allergies Allergy Verified 08/10/21 15:30 PFSH Acute PFSH: Medical History Chronic kidney disease (CKD) Essential (primary) hypertension Gout Hyperlipemia ICD (implantable cardioverter-defibrillator) in place Nonischemic cardiomyopathy Ventricular tachycardia Surgical History History of colon resection Family History Father Cancer Dementia Social History Alcohol intake: current Alcohol intake frequency: holidays/special occasions only Marital status: Current occupational status: retired Vitals/I&O/Wt Last Vital Signs Temp 98.1 F 08/10/21 12:42 Pulse 70 08/10/21 14:16 Resp 16 08/10/21 12:42 BP 100/70 08/10/21 14:16 Pulse Ox 96 08/10/21 14:16 Weight last 48 hrs Weight 220 lb Physical Exam Narrative: EXAM NARRATIVE: GENERAL: obese man sitting in bed in no acute distress HEENT: Pupils equal round reactive to light. No pallor or icterus. NECK: No JVD, No carotid bruit. CARDIOVASCULAR SYSTEM: S1-S2 regular. No murmur or gallops. RESPIRATORY SYSTEM: Chest clear to auscultation. No wheezes rhonchi or rubs heard. No use of accessory muscles.Left upper chest wall ICD in situ. ABDOMEN: Soft, nontender and nondistended. Normal bowel sounds present. EXTREMITIES: No cyanosis, No edema. No signs of chronic venous insufficiency. C DEVELOPER: Patient is alert oriented ?3. No focal neurological deficits. A&P Assessment and plan (1) ICD (implantable cardioverter-defibrillator) discharge: Keep K>4 and Mg>2 -continue sotalol 80 mg BID tonight -increase to sotalol 120 mg am and 80 mg pm -EKG per protocol for QT monitoring Status: Acute (2) Nonischemic cardiomyopathy: Plan for repeat echo. Status: Acute (3) Essential (primary) hypertension: BP soft today. Hold off on amlodipine and hydralazine Status: Acute (4) Hyperlipemia: Status: Acute (5) Ventricular tachycardia: H/o VT/V fib arrest Status: Acute Additional A&P Information Hypertension COVID-19 infection : s/p monoclonal ab infusion. management per primary team BANDAR Hyperlipidemia BPH Gout Thank you for allowing me to participate in patient care. Please feel free to call with questions or concerns. Consult Attestations Time Spent in Patient Care: Greater than 35 minutes (>than 50% of time spent in counselling and/or direct pt care on unit) . Coding Level of Care Code Acute Bar Catcher for [place] Fwd Diagnoses ICD (implantable cardioverter-defibrillator) discharge Z45.02 Nonischemic cardiomyopathy I42.8 Essential (primary) hypertension I10 Hyperlipemia E78.5 Ventricular tachycardia I47.2
[2021-08-10 17:52] LABS: Procalcitonin 0.49 ng/mL (0-0.5)
[2021-08-10] MEDS: sodium chloride 0.9% 250 ML IV (18:24)
[2021-08-10] MEDS: sotalol 80 mg Tablet PO (20:36)
[2021-08-10] MEDS: apixaban 5 mg Tablet 2.5 MG PO (20:36)
[2021-08-10] MEDS: allopurinol 100 mg Tablet PO (20:36)
[2021-08-10] MEDS: atorvastatin 40 mg Tablet PO (20:36)
[2021-08-10] MEDS: dexamethasone 10 mg/mL INJ 6 MG IVP (20:36)
[2021-08-10] MEDS: tamsulosin 0.4 mg Capsule PO (20:36)
[2021-08-11] VITALS (11 sets, daily range): BP systolic 116–129; BP diastolic 69–88; PULSE 70–80; RESP 18–27; TEMP 36.5–37; O2SAT 93–96
[2021-08-11 04:11] LABS: Hematocrit 44.9 % (42.0-52.0); Hemoglobin 14.5 g/dL (11.7-16.6); Lymphocytes # 0.7 10^3/uL (0.8-4.8); Lymphocytes % 13.1 %; Mean Corpuscular HGB Conc 32.3 g/dL (30.0-36.0); Mean Corpuscular Hemoglobin 28.5 pg (28.0-34.0); Mean Corpuscular Volume 88.4 fl (80-94); Mean Platelet Volume 10.5 fL (7.4-10.4); Monocytes # 0.2 10^3/uL (0.2-0.9); Monocytes % 3.6 %; Neutrophils # 4.19 10^3/uL (1.8-7.7); Neutrophils % 82.9 %; Nucleated Red Blood Cells % 0 %; Platelet Count 151 10^3/cmm (130-400); Red Blood Count 5.08 10^6/uL (4.1-5.3); Red Cell Distribution Width 14.4 % (12.1-15.1); White Blood Count 5.1 10^3/uL (4.0-10.0)
[2021-08-11 04:37] LABS: Anion Gap 17.2 (5-19); Blood Urea Nitrogen 29 mg/dL (8-23); Calcium 9.1 mg/dL (8.5-10.5); Carbon Dioxide 22 mmol/L (22-29); Chloride 103 mmol/L (98-107); Glucose 164 mg/dL (65-115); Osmolality Calculated 295 mOsm/kg (285-295); Potassium 4.2 mmol/L (3.5-5.1); Sodium 138 mmol/L (136-145)
[2021-08-11 04:40] LABS: C Reactive Protein 24.4 mg/L (0.0-4.9); Magnesium 1.9 mg/dL (1.7-2.3)
--- NOTE | 2021-08-11 07:31 | ECG_ITS ---
[facility] Test Date: 2021-08-11 Pat Name: Frederic Chan Department: Room: 102 Gender: Male Shrimp Header: : 1945 Requested By: Enma Blandon Order Number: [id number] Felicita MD: Enma Blandon M.D. Measurements Intervals [place] Rate: 75 P: 160 AR: 219 QRS: -46 QRSD: 106 T: -2 QT: 391 QTc: 438 Interpretive Statements ELECTRONIC ATRIAL PACEMAKER LEFT ANTERIOR FASCICULAR BLOCK [QRS AXIS <= -45, QR IN I, RS IN II] POSSIBLE ANTERIOR MYOCARDIAL INFARCTION , PROBABLY OLD [30 ms Q WAVE IN V3/V4, OR R < 0.2 mV IN V4] Compared to ECG 08/10/2021 15:42:16 No significant changes Electronically Signed On 08-11-2021 17:57:12 AUTISM SPECIALIST by Enma Blandon M.D. [id number]
[2021-08-11] MEDS: aspirin 81 mg EC Tablet PO (07:56)
[2021-08-11] MEDS: apixaban 5 mg Tablet 2.5 MG PO ×2 (07:56→17:26)
[2021-08-11] MEDS: sennosides-docusate Tablet 1 TAB PO (07:56)
[2021-08-11] MEDS: sotalol 80 mg Tablet 120 MG PO (07:56)
[2021-08-11] MEDS: allopurinol 100 mg Tablet PO ×2 (07:56→17:26)
--- NOTE | 2021-08-11 11:34 | PM.PN ---
Subjective Subjective: Interval history: Patient was seen and examined this morning he is feeling fine no overnight events, sotalol dose has been increased by Dr. Blandon this morning, QTC monitoring for now, patient is not endorsing any Covid related symptoms he is doing well on room air Vitals/I&O/Wt Last Vital Signs Temp 98.1 F 08/11/21 10:11 Pulse 75 08/11/21 10:11 Resp 18 08/11/21 10:11 BP 125/85 08/11/21 10:11 Pulse Ox 96 08/11/21 10:11 08/10/21 08/11/21 08/11/21 22:59 06:59 14:59 Intake Total 412 / 412 236 / 236 Output Total 400 / 400 400 / 400 Balance 412 / 412 -400 / 12 -164 / -164 Weight last 48 hrs Weight 99.337 kg Weight 99.79 kg Physical Exam Narrative: EXAM NARRATIVE: Resting well Doing well on room air No audible stridor or wheezing Abdomen soft EOMI PERRLA Appears well-hydrated Nonfocal exam Appropriate mood and affect Data : 08/11/21 03:25 08/11/21 03:25 A&P Assessment and plan (1) Ventricular fibrillation: Status: Acute (2) ICD (implantable cardioverter-defibrillator) discharge: Status: Acute (3) Nonischemic cardiomyopathy: Status: Acute (4) Chronic kidney disease (CKD): Status: Acute Additional A&P Information AICD discharge: Sotalol dose has been increased, blood pressure is stable, monitor QTC for next 24 hours plan to discharge him on Tuesday COVID-19: Not requiring oxygen, status post monoclonal antibody infusion 08/10 Chronic kidney disease Hold lisinopril Cardiac diet Full code DVT prophylaxis Eliquis Attestations Medical Necessity Statement*: Continue to monitor for now might be able to go home on Time Spent in Patient Care: less than 15 minutes Coding Level of Care Code Acute Librarian Assistant for Chg Fwd Diagnoses Ventricular fibrillation I49.01 ICD (implantable cardioverter-defibrillator) discharge Z45.02 Nonischemic cardiomyopathy I42.8 Chronic kidney disease (CKD) N18.9
[2021-08-11] MEDS: magnesium oxide 400 mg tablet PO ×2 (12:19→17:26)
--- NOTE | 2021-08-11 13:05 | PM.PN ---
Subjective Subjective: Interval history: No acute events overnight, isolated PVC's noted Medications: Reviewed: Yes Vitals/I&O/Wt Last Vital Signs Temp 98.1 F 08/11/21 10:11 Pulse 75 08/11/21 10:11 Resp 18 08/11/21 10:11 BP 125/85 08/11/21 10:11 Pulse Ox 96 08/11/21 10:11 08/10/21 08/11/21 08/11/21 22:59 06:59 14:59 Intake Total 412 / 412 472 / 472 Output Total 400 / 400 650 / 650 Balance 412 / 412 -400 / 12 -178 / -178 Weight last 48 hrs Weight 219 lb Weight 220 lb Physical Exam Narrative: EXAM NARRATIVE: GENERAL: obese man sitting in bed in no acute distress HEENT: Pupils equal round reactive to light. No pallor or icterus. NECK: No JVD, No carotid bruit. CARDIOVASCULAR SYSTEM: S1-S2 regular. No murmur or gallops. RESPIRATORY SYSTEM: Chest clear to auscultation. No wheezes rhonchi or rubs heard. No use of accessory muscles.Left upper chest wall ICD in situ. ABDOMEN: Soft, nontender and nondistended. Normal bowel sounds present. EXTREMITIES: No cyanosis, No edema. No signs of chronic venous insufficiency. TRANSPORTATION AGENT: Patient is alert oriented ?3. No focal neurological deficits. Data : 08/11/21 03:25 08/11/21 03:25 A&P Assessment and plan (1) ICD (implantable cardioverter-defibrillator) discharge: 2 ICD discharges 07/29/21 and 08/10/21 and multiple ATP's Keep K>4 and Mg>2 -increase to sotalol 120 mg am and 80 mg pm and monitor for at least 48 hours -EKG per protocol for QT monitoring -will get more EGM's from ICD interrogation. Status: Acute (2) Nonischemic cardiomyopathy: LVEF (35-40%) on repeat echo. Status: Acute (3) Essential (primary) hypertension: BP soft today. Hold off on amlodipine and hydralazine Status: Acute (4) Hyperlipemia: Status: Acute (5) Ventricular tachycardia: H/o VT/V fib arrest Status: Acute Additional A&P Information Hypertension COVID-19 infection : s/p monoclonal ab infusion. management per primary team BANDAR Hyperlipidemia BPH Gout Thank you for allowing me to participate in patient care. Please feel free to call with questions or concerns. Attestations Medical Necessity Statement*: needs hospital stay for monitoring for sotalol therapy, post ICD discharge Time Spent in Patient Care: 16 - 35 minutes (>than 50% of time spent in counselling and/or direct pt care on unit). Coding Level of Care Code Acute Mangle Press Catcher for [facility] Fwd Diagnoses ICD (implantable cardioverter-defibrillator) discharge Z45.02 Nonischemic cardiomyopathy I42.8 Essential (primary) hypertension I10 Hyperlipemia E78.5 Ventricular tachycardia I47.2
[2021-08-11] MEDS: pneumococcal (23 valent) SDV 0.5 mL IM (17:26)
--- NOTE | 2021-08-11 19:07 | USCV_ITS ---
Frederic Chan Age: 76 Gender: M : 1945 Exam Date: 08/11/2021 06:20 Ordering Phys: Desmond Ram MD Technologist: Karolyn Lyn [place] [facility] [place]: AICD DISCHARGE, + COVID BP: 116 / 69 HR: 78 Rhythm: Other Technical Quality: Adequate MEASUREMENTS (Male / Female) Normal Values 2D ECHO LV Diastolic Diameter PLAX 5.3 cm 4.2 - 5.9 / 3.9 - 5.3 cm LV Systolic Diameter PLAX 4.5 cm IVS Diastolic Thickness 1.6 cm 0.6 - 1.0 / 0.6 - 0.9 cm IVS Systolic Thickness 2.1 cm LVPW Diastolic Thickness 1.6 cm 0.6 - 1.0 / 0.6 - 0.9 cm LVPW Systolic Thickness 2.1 cm LVOT Diameter 2.0 cm LV Ejection Fraction 2D Teich 31.1 % LV Ejection Fraction MOD 2C 43.5 % LV Ejection Fraction 2C AL 43.5 % LA Diameter 3.5 cm LA Width 3.0 cm LA Height 5.5 cm RA Width 3.4 cm RA Height 5.7 cm Aorta at Sinotubular Diameter 2.8 cm M-MODE Aortic Annulus Diameter 3.2 cm LA Ao Ratio MM 1.1 MV E Point Septal Separation 1.2 cm DOPPLER AV Peak Velocity 134.0 cm/s LVOT Peak Velocity 69.0 cm/s AV Area Cont Eq vti 1.4 cm squared AV Area Cont Eq pk 1.6 cm squared MV Peak Velocity 111.0 cm/s MV Area PHT 3.6 cm squared Mitral E to A Ratio 0.8 MV E' Velocity 45.0 cm/s Mitral E to MV E' Ratio 14.3 Mitral E to LV E' Lateral Ratio 11.5 Mitral E to LV E' Septal Ratio 19.2 TR Peak Velocity 219.0 cm/s TR Peak Gradient 19.2 mmHg TR Mean Velocity 190.8 cm/s TR Mean Gradient 15.3 mmHg TR Velocity Time Integral 73.2 cm TV Peak E Velocity 34.0 cm/s Right Atrial Pressure 3.0 mmHg Pulmonary Artery Systolic Pressu 22.2 mmHg PV Peak Velocity 109.0 cm/s RV Acceleration Time 0.1 s RV Ejection Time 0.3 s RV AcT/ET 0.3 FINDINGS Left Ventricle Normal left ventricular size. LV systolic function is moderately reduced with EF of 35-40%. Moderate global hypokinesis. Grade 1 diastolic dysfunction Right Ventricle The right ventricle is normal in size and function. RV pacemaker lead is seen Right Atrium The right atrium is normal in size. RA pacemaker lead is seen Left Atrium The left atrium is normal in size. Mitral Valve Structurally normal mitral valve without significant stenosis or prolapse. There is mild mitral regurgitation. Aortic Valve Structurally normal aortic valve without significant sclerosis or stenosis. There is no aortic regurgitation. Tricuspid Valve Grossly normal without significant stenosis. Mild tricuspid regurgitation. Pulmonary artery systolic pressure is normal. Pulmonic Valve Structurally normal pulmonic valve without significant stenosis. There is no pulmonic regurgitation. Pericardium Normal pericardium without effusion. Aorta Normal ascending aorta dimension. CONCLUSIONS LV systolic function is moderately reduced with EF of 35-40% Grade 1 diastolic dysfunction Mild mitral regurgitation Mild tricuspid regurgitation No comparison studies are available Tigre Price MD (Electronically Signed) Final Date: 11 August 2021 11:32 S
[2021-08-11] MEDS: sotalol 80 mg Tablet PO (19:14)
[2021-08-11] MEDS: dexamethasone 10 mg/mL INJ 6 MG IVP (19:14)
[2021-08-11] MEDS: atorvastatin 40 mg Tablet PO (19:14)
[2021-08-11] MEDS: tamsulosin 0.4 mg Capsule PO (19:14)
--- NOTE | 2021-08-11 19:30 | PC.NURSE ---
Received report from KUNAL Feldman. Patient resting in bed watching TV. Patient has tested COVID (+) however remain asymptomatic at this time. Patient currently has SpO2 of 94% on room air. Denies any other symptoms stating, I feel great. No distress observed. Discussed BAM infusion and dexamethasone. Patient verbalized complete understanding.
--- NOTE | 2021-08-11 20:00 | ECG_ITS ---
[facility] Test Date: 2021-08-11 Pat Name: Frederic Chan Department: Room: 102 Gender: Male Field Applications Specialist: : 1945 Requested By: Desmond Ram Order Number: [id number] Felicita MD: Enma Blandon M.D. Measurements Intervals [place] Rate: 73 P: 115 CT: 229 QRS: -52 QRSD: 102 T: -10 QT: 386 QTc: 427 Interpretive Statements ELECTRONIC ATRIAL PACEMAKER WITH ISOLATED PVC'S LEFT ANTERIOR FASCICULAR BLOCK [QRS AXIS <= -45, QR IN I, RS IN II] POSSIBLE ANTERIOR MYOCARDIAL INFARCTION , PROBABLY OLD [30 ms Q WAVE IN V3/V4, OR R < 0.2 mV IN V4] Compared to ECG 08/11/2021 09:59:13 No significant changes Electronically Signed On 08-11-2021 22:10:26 POLLS OR SURVEYS INTERVIEWER by Enma Blandon M.D. [email or web address] [id number]
[2021-08-12] VITALS (12 sets, daily range): BP systolic 123–142; BP diastolic 85–95; PULSE 70–79; RESP 17–28; TEMP 36.5–37; O2SAT 93–96
--- NOTE | 2021-08-12 01:58 | ECG_ITS ---
[facility] Test Date: 2021-08-12 Pat Name: Frederic Chan Department: Room: 102 Gender: Male Humidifier Attendant: : 1945 Requested By: Enma Blandon Order Number: [id number] Felicita MD: Tigre Price M.D. Measurements Intervals [place] Rate: 73 P: 128 [place]: 230 QRS: -35 QRSD: 102 T: -7 QT: 381 QTc: 421 Interpretive Statements ELECTRONIC ATRIAL PACEMAKER LEFT AXIS DEVIATION [QRS AXIS < -30] POSSIBLE ANTERIOR MYOCARDIAL INFARCTION , PROBABLY OLD [30 ms Q WAVE IN V3/V4, OR R < 0.2 mV IN V4] Compared to ECG 08/11/2021 20:04:54 Left-axis deviation now present Left anterior fascicular block no longer present Myocardial infarct finding still present Electronically Signed On 08-13-2021 9:18:25 POLISH COMPOUNDER by Tigre Price M.D. [email or web address]/[id number]
[2021-08-12 05:14] LABS: Hematocrit 46.6 % (42.0-52.0); Hemoglobin 15.2 g/dL (11.7-16.6); Lymphocytes # 0.9 10^3/uL (0.8-4.8); Mean Corpuscular HGB Conc 32.6 g/dL (30.0-36.0); Mean Corpuscular Volume 88.9 fl (80-94); Mean Platelet Volume 11.1 fL (7.4-10.4); Monocytes # 0.5 10^3/uL (0.2-0.9); Monocytes % 7.6 %; Neutrophils # 4.85 10^3/uL (1.8-7.7); Neutrophils % 78.1 %; Nucleated Red Blood Cells % 0 %; Platelet Count 153 10^3/cmm (130-400); Red Blood Count 5.24 10^6/uL (4.1-5.3); Red Cell Distribution Width 14.3 % (12.1-15.1); White Blood Count 6.2 10^3/uL (4.0-10.0)
[2021-08-12 05:44] LABS: Magnesium 1.9 mg/dL (1.7-2.3)
[2021-08-12 05:52] LABS: Anion Gap 19.6 (5-19); Blood Urea Nitrogen 24 mg/dL (8-23); Calcium 9.6 mg/dL (8.5-10.5); Carbon Dioxide 20 mmol/L (22-29); Chloride 100 mmol/L (98-107); Glucose 144 mg/dL (65-115); Osmolality Calculated 287 mOsm/kg (285-295); Potassium 4.6 mmol/L (3.5-5.1); Sodium 135 mmol/L (136-145)
--- NOTE | 2021-08-12 06:17 | PC.NURSE ---
Shift Note Frequent safety and comfort rounds continue. Orders and/or nursing care completed as indicated. Patient monitored for response to intervention and treatment(s). Education provided includes dexamethasone. Patient verbalized complete understanding. Patient has had uneventful evening. Remains on room air currently. Patient reports feeling very well. Denies pain or needs. No distress observed. Will continue to monitor.
--- NOTE | 2021-08-12 08:00 | PC.NURSE ---
Pt lying in bed talking to staff and eating breakfast hob at 45 degree. Pts resp even and non-labored no distress or sob noted. Pt had no c/o pain or discomfort at the present time. No needs voiced. Call light in reach. Will cont to monitor.
[2021-08-12] MEDS: aspirin 81 mg EC Tablet PO (08:27)
[2021-08-12] MEDS: potassium chloride ER 20 mEq Tablet PO (08:27)
[2021-08-12] MEDS: sotalol 80 mg Tablet 120 MG PO (08:27)
[2021-08-12] MEDS: sennosides-docusate Tablet 1 TAB PO (08:28)
[2021-08-12] MEDS: magnesium oxide 400 mg tablet PO ×2 (08:28→17:58)
[2021-08-12] MEDS: allopurinol 100 mg Tablet PO ×2 (08:28→17:58)
[2021-08-12] MEDS: apixaban 5 mg Tablet 2.5 MG PO ×2 (08:28→17:58)
--- NOTE | 2021-08-12 08:54 | PM.PN ---
Subjective Subjective: Interval history: Patient doing well, no chest pain or shortness of breath doing well on room air No overnight events Patient nurse to obtain EKG 3 hours after the sotalol dosage Patient is in good spirits Vitals/I&O/Wt Last Vital Signs Temp 97.7 F 08/11/21 23:29 Pulse 74 08/12/21 03:53 Resp 17 08/12/21 03:47 BP 130/85 08/12/21 03:47 Pulse Ox 94 08/12/21 03:47 08/11/21 08/12/21 08/12/21 22:59 06:59 14:59 Intake Total 576 / 1048 120 / 1168 Output Total 725 / 1375 700 / 2075 Balance -149 / -327 -580 / -907 Weight last 48 hrs Weight 99.337 kg Weight 99.79 kg Physical Exam Narrative: EXAM NARRATIVE: Lying comfortably in his bed Paced rhythm PVCs on telemetry Hemodynamically stable Doing well on room air No active audible stridor or wheezing Abdomen soft EOMI, PERRLA Data : 08/12/21 04:16 08/12/21 04:16 A&P Assessment and plan (1) Ventricular fibrillation: Status: Acute (2) ICD (implantable cardioverter-defibrillator) discharge: Status: Acute (3) Nonischemic cardiomyopathy: Status: Acute (4) Chronic kidney disease (CKD): Status: Acute (5) Essential (primary) hypertension: Status: Acute (6) History of colon cancer: Status: Acute Additional A&P Information AICD discharge Sotalol dose has been increased by Dr. Blandon, plan to monitor him for 48 hours, no QTC prolongation, another EKG to be done today Plan to discharge him tomorrow if clinically stable COVID-19 pneumonia: Doing well on room air, status post monoclonal antibody infusion IV steroids for now History of A. fib: Continue apixaban Heart rate in 70s with sotalol increased dose, holding antihypertensive regimen Full code Cardiac diet DVT prophylaxis covered with Eliqumaynor Attestations Medical Necessity Statement*: medical management to be continued Time Spent in Patient Care: less than 15 minutes Coding Level of Care Code Acute Door Frame Assembler Machine for Chg Fwd Diagnoses Ventricular fibrillation I49.01 ICD (implantable cardioverter-defibrillator) discharge Z45.02 Nonischemic cardiomyopathy I42.8 Chronic kidney disease (CKD) N18.9 Essential (primary) hypertension I10 History of colon cancer Z85.038
--- NOTE | 2021-08-12 11:00 | ECG_ITS ---
[facility] Test Date: 2021-08-12 Pat Name: Frederic Chan Department: Room: 102 Gender: Male Agency Manager: : 1945 Requested By: Desmond Ram Order Number: [id number] Felicita MD: Tigre Price M.D. Measurements Intervals [place] Rate: 70 P: 114 [place]: 237 QRS: -41 QRSD: 132 T: -7 QT: 409 QTc: 442 Interpretive Statements ELECTRONIC ATRIAL PACEMAKER LEFT AXIS DEVIATION [QRS AXIS < -30] INTRAVENTRICULAR CONDUCTION DELAY [130+ ms QRS DURATION] POSSIBLE ANTERIOR MYOCARDIAL INFARCTION , PROBABLY OLD [30 ms Q WAVE IN V3/V4, OR R < 0.2 mV IN V4] Compared to ECG 08/12/2021 03:09:31 Intraventricular conduction delay now present Myocardial infarct finding still present Electronically Signed On 08-13-2021 9:17:31 COMMUNITY SERVICE WORKER by Tigre Price M.D. [email or web address].[employer]/store/[id number]
--- NOTE | 2021-08-12 14:10 | P.PN_ITS ---
Subjective Subjective: Interval history: No new complains. Feels well. Medications: Reviewed: Yes Vitals/I&O/Wt Last Vital Signs Temp 97.8 F 08/12/21 08:00 Pulse 75 08/12/21 10:45 Resp 18 08/12/21 10:45 BP 137/95 08/12/21 08:00 Pulse Ox 94 08/12/21 10:45 08/11/21 08/12/21 08/12/21 22:59 06:59 14:59 Intake Total 576 / 1048 120 / 1168 360 / 360 Output Total 725 / 1375 700 / 2075 700 / 700 Balance -149 / -327 -580 / -907 -340 / -340 Weight last 48 hrs Weight 219 lb Physical Exam Narrative: EXAM NARRATIVE: GENERAL: obese man sitting in bed in no acute distress HEENT: Pupils equal round reactive to light. No pallor or icterus. NECK: No JVD, No carotid bruit. CARDIOVASCULAR SYSTEM: S1-S2 regular. No murmur or gallops. RESPIRATORY SYSTEM: Chest clear to auscultation. No wheezes rhonchi or rubs heard. No use of accessory muscles.Left upper chest wall ICD in situ. ABDOMEN: Soft, nontender and nondistended. Normal bowel sounds present. EXTREMITIES: No cyanosis, No edema. No signs of chronic venous insufficiency. FOOD SERVICE SUBSTITUTE: Patient is alert oriented ?3. No focal neurological deficits. Data : 08/12/21 04:16 08/12/21 04:16 A&P Assessment and plan (1) ICD (implantable cardioverter-defibrillator) discharge: 2 ICD discharges 07/29/21 and 08/10/21 and multiple ATP's Keep K>4 and Mg>2 -continue sotalol 120 mg am and 80 mg pm and monitor for at least 48 hours -EKG per protocol for QT monitoring -will get more EGM's from ICD interrogation. -May be discharged tomorrow from cardiac standpoint. Status: Acute (2) Nonischemic cardiomyopathy: LVEF (35-40%) on repeat echo. -restart lisinopril 10 mg on discharge. Status: Acute (3) Essential (primary) hypertension: BP improved Status: Acute (4) Hyperlipemia: Status: Acute (5) Ventricular tachycardia: H/o VT/V fib arrest Status: Acute Additional A&P Information COVID-19 infection : s/p monoclonal ab infusion. management per primary team BANDAR: resolved Hyperlipidemia BPH Gout Thank you for allowing me to participate in patient care. Please feel free to call with questions or concerns. Attestations Medical Necessity Statement*: needs hospital stay for monitoring for sotalol therapy, post ICD discharge Time Spent in Patient Care: 16 - 35 minutes (>than 50% of time spent in counselling and/or direct pt care on unit) . Coding Level of Care Code Acute Administrative Nursing Supervisor for g Fwd Diagnoses ICD (implantable cardioverter-defibrillator) discharge Z45.02 Nonischemic cardiomyopathy I42.8 Essential (primary) hypertension I10 Hyperlipemia E78.5 Ventricular tachycardia I47.2
[2021-08-12] MEDS: dexamethasone 10 mg/mL INJ 6 MG IVP (17:58)
--- NOTE | 2021-08-12 18:37 | PC.NURSE ---
pt has not required oxygen all day.no c/o pain.remains a-paced on monitor.
[2021-08-12] MEDS: atorvastatin 40 mg Tablet PO (19:41)
[2021-08-12] MEDS: sotalol 80 mg Tablet PO (19:41)
[2021-08-12] MEDS: tamsulosin 0.4 mg Capsule PO (19:41)
--- NOTE | 2021-08-12 22:45 | ECG_ITS ---
[facility] Test Date: 2021-08-12 Pat Name: Frederic Chan Department: Room: 102 Gender: Male Analytical Technician: : 1945 Requested By: Van Pyle Order Number: [id number] Felicita MD: Tigre Price M.D. Measurements Intervals [place] Rate: 73 P: 129 ME: 239 QRS: -39 QRSD: 105 T: -16 QT: 402 QTc: 445 Interpretive Statements ELECTRONIC ATRIAL PACEMAKER LEFT AXIS DEVIATION [QRS AXIS < -30] POSSIBLE ANTERIOR MYOCARDIAL INFARCTION , PROBABLY OLD [30 ms Q WAVE IN V3/V4, OR R < 0.2 mV IN V4] Compared to ECG 08/12/2021 11:09:33 Intraventricular conduction delay no longer present Myocardial infarct finding still present Electronically Signed On 08-13-2021 8:45:31 INFORMATION TECHNOLOGY SECURITY ANALYST by Tigre Price M.D. [email or web address].[id number]
[2021-08-13 03:03] VITALS: BP 149/96; PULSE 70; RESP 19; TEMP 36.6; O2SAT 94
[2021-08-13 03:43] VITALS: PULSE 70
[2021-08-13 04:10] LABS: Hematocrit 44.9 % (42.0-52.0); Hemoglobin 14.6 g/dL (11.7-16.6); Lymphocytes # 0.9 10^3/uL (0.8-4.8); Lymphocytes % 16.9 %; Mean Corpuscular HGB Conc 32.5 g/dL (30.0-36.0); Mean Corpuscular Hemoglobin 28.6 pg (28.0-34.0); Monocytes # 0.3 10^3/uL (0.2-0.9); Monocytes % 6.1 %; Neutrophils % 76.4 %; Nucleated Red Blood Cells % 0 %; Platelet Count 156 10^3/cmm (130-400); Red Cell Distribution Width 13.9 % (12.1-15.1); White Blood Count 5.4 10^3/uL (4.0-10.0)
[2021-08-13 04:32] LABS: Anion Gap 15.6 (5-19); Blood Urea Nitrogen 20 mg/dL (8-23); Calcium 9.4 mg/dL (8.5-10.5); Carbon Dioxide 22 mmol/L (22-29); Chloride 102 mmol/L (98-107); Glucose 136 mg/dL (65-115); Osmolality Calculated 285 mOsm/kg (285-295); Potassium 4.6 mmol/L (3.5-5.1); Sodium 135 mmol/L (136-145)
[2021-08-13 04:35] LABS: Magnesium 2.1 mg/dL (1.7-2.3)
[2021-08-13] MEDS: aspirin 81 mg EC Tablet PO (07:31)
[2021-08-13] MEDS: sotalol 80 mg Tablet 120 MG PO (07:32)
[2021-08-13] MEDS: sennosides-docusate Tablet 1 TAB PO (07:32)
[2021-08-13] MEDS: allopurinol 100 mg Tablet PO (07:32)
[2021-08-13] MEDS: potassium chloride ER 20 mEq Tablet PO (07:32)
[2021-08-13] MEDS: magnesium oxide 400 mg tablet PO (07:32)
[2021-08-13] MEDS: apixaban 5 mg Tablet 2.5 MG PO (07:43)
[2021-08-13 08:00] VITALS: BP 167/107; PULSE 70; RESP 16; TEMP 36.7; O2SAT 98
[2021-08-13] MEDS: hyDRALAzine 50 mg Tablet PO (08:44)
[2021-08-13] MEDS: lisinopril 20 mg Tablet PO (08:44)
--- NOTE | 2021-08-13 08:56 | PM.DCS ---
Discharge Providers Date of Admission: 08/10/21 19:07 Date of Discharge: August 13, 2021 Attending Provider at Admission: Desmond Ram MD Attending Provider at Discharge: Desmond Ram MD Primary Care Provider: Priscilla Long MD Diagnoses at Discharge Discharge Diagnosis (1) ICD (implantable cardioverter-defibrillator) discharge: Status: Acute (2) Nonischemic cardiomyopathy: Status: Acute (3) Essential (primary) hypertension: Status: Acute (4) Hyperlipemia: Status: Acute (5) Ventricular tachycardia: Status: Acute Reason for Visit Reason for Visit: DEFIB GOING OFF Hospital Course Hospital Course Frederic Sprague Tutone is a 76 year old male with PMHx of colon cancer in 2013, s/p colon resection and chemotherapy, HTN, gout, h/o ventricular tachycardia/ ventricular fibrillation arrest in 04/2014 while on chemotherapy and 2016, s/p coronary angiography that revealed minimal nonobstructive disease in 2013 and 2016 and 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 He was placed on amiodarone and defibrillator was placed in 2013. At some point, he was switched from amiodarone to sotalol 80 mg BID. He is here with vague complaints of intermittent fever and diarrhea. He was vaccinated with Moderna COVID-19 vaccine with second dose in 10/2020. 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 He felt ICD discharge yesterday/earlier today and hence came to ER for further evaluation. He was seen in [facility] about 10 days back and was noted to have VT with ATP's and ICD discharges. Labs were checked but no medications were changed. Multiple VT/VF episodes with ATP's and 2 shocks once on 07/29 and another one 08/10/21. Covid antigen positive, he was not requiring any oxygen. He received monoclonal antibody infusion at the time of admission. He was hypotensive, received a small bolus in the ER. Which improved his blood pressure. His antihypertensive regimen was held for about 48 hours. On the day of discharge he was hypertensive hence hydralazine and lisinopril resumed. Dr. Fermin have recommended increasing sotalol dose to 120 mg in a.m. and 80 mg in p.m. QTC monitor for about 48 hours, QTC stayed less than 490. Patient did not experience any chest pain, fever, diarrhea, he did well on room air. He was instructed to follow-up with cardiology, quarantine for next 15 days, because of increased dose of sotalol, lisinopril dose was decreased from 40 mg to 20 mg at the time of discharge. Physical Exam Narrative: EXAM NARRATIVE: Patient resting comfortably Saturating well on room air Hypertensive Abdomen soft S1, S2 Doing well on room air no audible stridor or wheezing Clinically euvolemic EOMI, PERRLA nonfocal neuro exam Discharge Data Data Completed and Pending: Completed Studies During Hospitalization Category Date Time Status XR chest 1V [place] ble [id number] Urgent Exams 08/10/21 12:45 Completed CV. echo complete * [id number] Routine Ultrasound 08/11/21 19:07 Completed Labs from last 24 hours 08/13/21 08/13/21 08/13/21 03:35 03:35 03:35 WBC 5.4 RBC 5.10 Hgb 14.6 Hct 44.9 MCV 88.0 MCH 28.6 MCHC 32.5 RDW 13.9 Plt Count 156 MPV 11.0 H Neut % (Auto) 76.4 Lymph % (Auto) 16.9 [place] % (Auto) 6.1 Eos % (Auto) 0.0 Baso % (Auto) 0.0 Neut # (Auto) 4.10 Lymph # (Auto) 0.9 [place] # (Auto) 0.3 Eos # (Auto) 0.0 Baso # (Auto) 0.0 Nucleated RBC % (a uto) 0 Nucleated RBCs # 0.0 Sodium 135 L Potassium 4.6 Chloride 102 Carbon Dioxide 22 Anion Gap 15.6 BUN 20 Creatinine 0.9 GFR Calculation Not Reportable Glucose 136 H Calculated Osmolal ity 285 Calcium 9.4 Magnesium 2.1 Vitals: Last Vital Signs Temp 98.0 F 08/13/21 08:00 Pulse 70 08/13/21 08:00 Resp 16 08/13/21 08:00 BP 167/107 08/13/21 08:00 Pulse Ox 98 08/13/21 08:00 Discharge Plan Discharge Patient Disposition: Home Condition: Stable Prescriptions: New sotalol 80 mg Tablet 120 mg PO 0800 Qty: 60 RF: 3 magnesium oxide 400 mg magnesium capsule 400 mg PO BID Qty: 6 RF: 0 Continued simvastatin 80 mg tablet 40 mg PO DAILY@1999 RF: 0 potassium chloride 20 mEq tablet extended release 20 meq PO DAILY@0800 RF: 0 hydralazine 50 mg tablet 50 mg PO BID@0800,1999 RF: 0 allopurinol 100 mg tablet 100 mg PO BID RF: 0 aspirin [Enteric Coated Aspirin] 81 mg tablet,delayed release (DR/EC) 81 mg PO DAILY@0800 RF: 0 tamsulosin 0.4 mg capsule 0.4 mg PO DAILY@1999 RF: 0 amlodipine 5 mg tablet 5 mg PO DAILY@0800 RF: 0 Vitamin C 1,000 mg Tablet 1,000 mg PO DAILY RF: 0 zinc 50 mg Tablet 50 mg PO DAILY RF: 0 apixaban 5 mg Tablet 2.5 mg PO BID RF: 0 Glucosamine Chondroitin 550-30-1 mg Capsule 1 cap PO BID RF: 0 Vitamin D3 2 cap PO DAILY RF: 0 Changed sotalol 80 mg tablet 80 mg PO 1999 Qty: 60 RF: 3 lisinopril 40 mg tablet 20 mg PO DAILY@0800 Qty: 30 RF: 0 Discharge Orders: Discharge Order (Routine); Ordered 08/13/21 Ordered By: Desmond Ram Referrals: Tigre Price M.D [Physician] - 1 month Janessa Urrutia FNP [Nurse Practitioner] - 4-7 days Discharge Diet: Cardiac Discharge Activity: Increase activity as tolerated Patient Instructions: Opioid Safety Activity Restrictions/Additional Instructions: Quarantine for next 15 days to finish 20 days in total We have increased her sotalol dose you will take 120 mg in the a.m. and at 8:00 you will take 80 mg, because of increasing dose of sotalol I have reduce the dose of lisinopril to 20 mg for your blood pressure, Keep the potassium above 4 and magnesium above 2 Please follow-up with cardiology Discharge Attestations Time Spent in Discharge Care*: less than 30 min Quality Metrics Clinical Quality Measures During this hospital stay, did patient experience: None Coding Level of Care Code Acute Chg FW DC note Diagnoses ICD (implantable cardioverter-defibrillator) discharge Z45.02 Nonischemic cardiomyopathy I42.8 Essential (primary) hypertension I10 Hyperlipemia E78.5 Ventricular tachycardia I47.2
[2021-08-13 10:30] VITALS: PULSE 70; RESP 18; O2SAT 95
--- NOTE | 2021-08-13 10:30 | ECG_ITS ---
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 Measurements Intervals [place] Rate: 70 P: 114 FL: 261 QRS: -40 QRSD: 104 T: -16 QT: 428 QTc: 462 Interpretive Statements ELECTRONIC ATRIAL PACEMAKER LEFT AXIS DEVIATION [QRS AXIS < -30] POSSIBLE ANTERIOR MYOCARDIAL INFARCTION , PROBABLY OLD [30 ms Q WAVE IN V3/V4, OR R < 0.2 mV IN V4] Compared to ECG 08/12/2021 22:40:03 No significant changes Electronically Signed On 08-13-2021 20:40:56 RAILROAD CAR CLEANING SUPERVISOR by Tigre Price M.D. [id number]
[2021-08-13 11:08] VITALS: BP 136/89; PULSE 70; RESP 18; TEMP 36.8; O2SAT 94
--- NOTE | 2021-08-13 11:12 | PC.CHAP ---
Pastoral Care Encounter/Spiritual Assessment Type of Contact [] Declined newspaper correspondent visit [] Patient/Family/Request visit [] Outpatient visit [] Follow-up visit [] Physician referral [] Code/Alert [x] Routine visit [] Staff referral [] Actively dying [] Patient sleeping [] Family support [] [] Out of room [] Palliative care [] [x] Receiving care in room [] Pre-surgical visit [] Trauma [x] Long length of stay [] ICU visit [] Other: Relational/Emotional Strength [x] Patient feels connected with others/family/visitors/staff [] Distress [] Loneliness/isolation [] Abandonment Spirituality of Patient [x] Person of Oliva [] Attends Evangelical of their Oliva [] Believes in Prayer [] Reads Bible or Taoism materials [] There are Spiritual issues to be addressed Liquified Natural Gas Technician Interventions [x] Prayer [x] Active listening [x] Non-anxious presence [x] Spiritual/emotional support [] Crisis/trauma care [x] Spiritual counseling [] Bereavement support [] Provided bereavement packet [] Provided Bible/devotional materials [] Provided toy/stuffed animal, coloring book to patient or family member [] Provided Communion [] Anointing/[place] [] Salvation [x] Completed spiritual assessment [] Other: Impact on Illness or Injury [] Angry [xx] Fearful [] Anxious [] Often cries [] Exhaustion [x] Unable to work [] Unable to attend samaritan [] Unable to walk/stand [] Unable to read [] Unable to drive [] Unable to eat/drink [] Unable to sleep [] Unable to be with family [] Patient intubated [] Other: Summary unable to breath properly or communicate Time spent with patient 5 mins
--- NOTE | 2021-08-13 11:16 | PC.SOCIAL ---
IMM IMM signed by patient, dated and initialed and copy given to pt and one put into chart.
--- NOTE | 2021-08-13 14:20 | PM.PN ---
Subjective Subjective: Interval history: Feels well. His tested positive for COVID-19 as well. Medications: Reviewed: Yes Vitals/I&O/Wt Last Vital Signs Temp 98.2 F 08/13/21 11:08 Pulse 70 08/13/21 11:08 Resp 18 08/13/21 11:08 BP 136/89 08/13/21 11:08 Pulse Ox 94 08/13/21 11:08 08/12/21 08/13/21 08/13/21 22:59 06:59 14:59 Intake Total 480 / 840 600 / 1440 Output Total 525 / 1225 1000 / 2225 1075 / 1075 Balance -45 / -385 -400 / -785 -1075 / -1075 Physical Exam Narrative: EXAM NARRATIVE: GENERAL: obese man sitting in bed in no acute distress HEENT: Pupils equal round reactive to light. No pallor or icterus. NECK: No JVD, No carotid bruit. CARDIOVASCULAR SYSTEM: S1-S2 regular. No murmur or gallops. RESPIRATORY SYSTEM: Chest clear to auscultation. No wheezes rhonchi or rubs heard. No use of accessory muscles.Left upper chest wall ICD in situ. ABDOMEN: Soft, nontender and nondistended. Normal bowel sounds present. EXTREMITIES: No cyanosis, No edema. No signs of chronic venous insufficiency. SLIDER ASSEMBLER: Patient is alert oriented ?3. No focal neurological deficits. Data : 08/13/21 03:35 08/13/21 03:35 A&P Assessment and plan (1) ICD (implantable cardioverter-defibrillator) discharge: 2 ICD discharges 07/29/21 and 08/10/21 and multiple ATP's Keep K>4 and Mg>2 -continue sotalol 120 mg am and 80 mg pm and monitor for at least 48 hours -EKG per protocol for QT monitoring -Isolated PVC's noted on telemetry. -No NSVT, intermittent V paced rhythm, mostly A paced V sensed. -May be discharged today from cardiac standpoint. -f/u in [facility] in 3-4 weeks Status: Acute (2) Nonischemic cardiomyopathy: LVEF (35-40%) on repeat echo. - lisinopril was restarted today Status: Acute (3) Essential (primary) hypertension: BP meds restarted Status: Acute (4) Hyperlipemia: Status: Acute (5) Ventricular tachycardia: H/o VT/V fib arrest Status: Acute Additional A&P Information COVID-19 infection : s/p monoclonal ab infusion. management per primary team BANDAR: resolved Hyperlipidemia BPH Gout Thank you for allowing me to participate in patient care. Please feel free to call with questions or concerns. Attestations Medical Necessity Statement*: stable for discharge Time Spent in Patient Care: 16 - 35 minutes (>than 50% of time spent in counselling and/or direct pt care on unit). Coding Level of Care Code Acute Election Supervisor for Chg Fwd Diagnoses ICD (implantable cardioverter-defibrillator) discharge Z45.02 Nonischemic cardiomyopathy I42.8 Essential (primary) hypertension I10 Hyperlipemia E78.5 Ventricular tachycardia I47.2
--- NOTE | 2021-08-13 15:02 | PC.NURSE ---
Called and left voicemail for Dr. Price office that patient is needing 1 mo f/u and 1 wk f/u with Janessa Urrutia. Wifes phone number given and instructed patient that they will call with appointments.
== END 2021-08-13 15:02 | disposition home or self-care (01) ==
LOC: ER 15:40 → CSU 18:49
PROVIDERS: Internal Medicine Cardiovascular Disease; Physician Assistant; Admitting Provider Internal Medicine; Emergency Provider Family Medicine; PCP Family Medicine; Visit Provider Internal Medicine
DX: U07.1 COVID-19 (principal); Z45.02 Encounter for adjustment and management of automatic implantable cardiac defibrillator; I42.8 Other cardiomyopathies; I10 Essential (primary) hypertension; E78.5 Hyperlipidemia, unspecified; I47.2 Ventricular tachycardia; I49.01 Ventricular fibrillation; N18.9 Chronic kidney disease, unspecified; I12.9 Hypertensive chronic kidney disease with stage 1 through stage 4 chronic kidney disease, or unspecified chronic kidney disease; Z85.038 Personal history of other malignant neoplasm of large intestine; Z90.49 Acquired absence of other specified parts of digestive tract; Z92.21 Personal history of antineoplastic chemotherapy; N40.0 Benign prostatic hyperplasia without lower urinary tract symptoms; M10.9 Gout, unspecified; Z79.82 Long term (current) use of aspirin
CPT/HCPCS: 36415; 71045; 80048; 80053; 83735; 83880; 84145; 84484; 85025; 86140; 87635; 90471; 90686; 90732; 93005; 93306; 96365; 96367; 99285; G0378; J1100; J3475; J7050

== ENCOUNTER → 2021-10-12 10:10 | Outpatient (BNVA) | payer OTHER, SELFPAY | PROVIDERS: PCP Family Medicine; Visit Provider Internal Medicine | DX: I42.8 Other cardiomyopathies (principal); I49.01 Ventricular fibrillation | CPT/HCPCS: 80048 ==

== ENCOUNTER → 2021-10-13 09:40 | Outpatient (BNVA) | payer OTHER, SELFPAY | PROVIDERS: PCP Family Medicine; Visit Provider Nurse Practitioner Family | DX: E87.5 Hyperkalemia (principal); I42.8 Other cardiomyopathies | CPT/HCPCS: 80048 ==

== ENCOUNTER 2021-10-14 15:58 | Emergency (ER) | payer OTHER, MEDICARE, SELFPAY ==
--- NOTE | 2021-10-14 16:00 | XRR_ITS ---
PROCEDURE INFORMATION: Exam: XR Chest Exam date and time: 10/14/2021 4:00 PM Age: 76 years old Clinical indication: Chest wall pain; Prior surgery; Surgery date: 6+ months; Surgery type: Defibulator; Additional info: Cp TECHNIQUE: Imaging protocol: XR of the chest. Views: 1 view. COMPARISON: CR XR chest 1V portable [id number] 08/10/2021 12:54 PM FINDINGS: Tubes, catheters and devices: Intact dual lead left subclavian pacemaker. Lungs: Atelectasis or scarring in the lingula. The lungs are otherwise clear. Probable emphysema. Pleural spaces: Unremarkable. No pleural effusion. No pneumothorax. Heart/Mediastinum: Unremarkable. No cardiomegaly. Bones/joints: Right rotator cuff arthropathy. XR/XR chest 1V portable [id number] IMPRESSION: No acute finding.
[2021-10-14 16:06] VITALS: BP 166/79; PULSE 70; RESP 18; TEMP 36.4; O2SAT 96; BMI 31.5
[2021-10-14 16:28] LABS: Basophils # 0.1 10^3/uL (0.0-0.1); Eosinophils # 0.2 10^3/uL (0.0-0.8); Eosinophils % 2.9 %; Hematocrit 46.7 % (42.0-52.0); Hemoglobin 14.9 g/dL (11.7-16.6); Lymphocytes # 1.5 10^3/uL (0.8-4.8); Lymphocytes % 21.6 %; Mean Corpuscular HGB Conc 31.9 g/dL (30.0-36.0); Mean Corpuscular Hemoglobin 28.5 pg (28.0-34.0); Mean Corpuscular Volume 89.3 fl (80-94); Mean Platelet Volume 10.1 fL (7.4-10.4); Monocytes # 0.6 10^3/uL (0.2-0.9); Monocytes % 8.9 %; Neutrophils # 4.54 10^3/uL (1.8-7.7); Neutrophils % 64.9 %; Nucleated Red Blood Cells % 0 %; Platelet Count 224 10^3/cmm (130-400); Red Blood Count 5.23 10^6/uL (4.1-5.3); Red Cell Distribution Width 14.6 % (12.1-15.1)
--- NOTE | 2021-10-14 16:33 | ED_ITS ---
HPI - Dizziness General: Chief Complaint: Dizziness Stated Complaint: pt states Diffibulator went off Price sent Time Seen by Provider: 10/14/21 16:01 Source: patient Mode of arrival: ambulatory Limitations: no limitations History of Present Illness: HPI Narrative: 76-year-old male who states that after an hour and a half ago his defibrillator went off he states it went off last Tuesday as well. He had no symptoms beforehand denies any pain states that he just went off states that since that its been off he has felt normal as well. 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 He was started on sotalol last week Associated symptoms: Denies chest pain, chills, headache(s), nausea or vomiting Review of Systems Const: Denies: fever(s), chills, body aches or change in appetite Eyes: Denies: blurry vision or eye discomfort ENMT: Denies: throat pain or dental pain Card: Denies: chest pain Resp: Denies: dyspnea GI: Denies: abdominal pain, nausea, vomiting or diarrhea : Denies: dysuria Musc: Denies: neck pain or back pain Skin/Breast: Denies: rash Neuro: Denies: headache(s) Psych: Denies: depression Jemal/Lymph: Denies: easy bruising All/Imm: Denies: urticaria PFSH ED PFSH: Medical History (Updated 10/14/21 @ 17:22 by Nazario Wilder MD) Chronic kidney disease (CKD) Essential (primary) hypertension Gout History of colon cancer Hyperlipemia ICD (implantable cardioverter-defibrillator) in place Nonischemic cardiomyopathy Ventricular tachycardia Surgical History History of colon resection Family History Father Cancer Dementia Social History Smoking and tobacco status: former smoker Alcohol intake: current Alcohol intake frequency: holidays/special occasions only Marital status: Current occupational status: retired Physical Exam Const: COMMON NORMALS: no acute distress, patient oriented x3 and healthy appearing HENMT: COMMON NORMALS: normocephalic and atraumatic HEAD & SCALP: normocephalic and atraumatic Eye: COMMON NORMALS: Equal, round and reactive pupils present and EOMs intact bilaterally PUPIL: Yes Equal, round and reactive pupils present Neck/C-Spine: COMMON NORMALS: full ROM and supple Chest: COMMONS NORMALS: normal inspection of the chest and normal palpation of entire chest wall Resp: COMMON NORMALS: normal respiratory effort, No retractions, No use of accessory muscles and clear to auscultation bilaterally AUSCULTATION: clear t o auscultation bilaterally Cardio: COMMON NORMALS: regular rate, regular rhythm and No murmurs present (Cardio) RATE: regular rate RHYTHM: regular rhythm GI: COMMON NORMALS: Normal to inspection, nondistended, normoactive bowel sounds present, Soft to palpation, non-tender and no masses PALPATION: Yes Soft to palpation Extremity: COMMON NORMALS: normal to inspection and full ROM Neuro: COMMON NORMALS: patient oriented x3, moves all extremities and no focal motor deficits Psych: COMMON NORMALS: mental status grossly normal, Normal thought process present and cooperative THOUGHT PROCESS: Normal thought process present Skin: COMMON NORMALS: no rashes or lesions noted and no wounds GENERAL SKIN EXAM: no rashes or lesions noted Course Vital Signs: Vital signs: Vital Signs Temperature 97.5 F L 10/14/21 16:06 Pulse Rate 63 10/14/21 16:41 Respiratory Rate 16 10/14/21 16:41 Blood Pressure 141/91 10/14/21 16:41 Pulse Oximetry 97 10/14/21 16:41 MDM - Dizziness Medical Decision Making Patient presents here after his defibrillator discharge he felt fine before and after the event have 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 Lazcano next week return if worsening he understands agrees to plan. Lab Data : 10/14/21 16:20 10/14/21 16:20 Radiology Impressions Chest X-Ray 10/14/21 16:00 IMPRESSION: No acute finding. Laboratory Results WBC 7.0 10^3/uL (4.0-10.0) 10/14/21 16:20 RBC 5.23 10^6/uL (4.1-5.3) 10/14/21 16:20 Hgb 14.9 g/dL (11.7-16.6) 10/14/21 16:20 Hct 46.7 % (42.0-52.0) 10/14/21 16:20 MCV 89.3 fl (80-94) 10/14/21 16:20 MCH 28.5 pg (28.0-34.0) 10/14/21 16:20 MCHC 31.9 g/dL (30.0-36.0) 10/14/21 16:20 RDW 14.6 % (12.1-15.1) 10/14/21 16:20 Plt Count 224 10^3/cmm (130-400) 10/14/21 16:20 MPV 10.1 fL (7.4-10.4) 10/14/21 16:20 Neut % (Auto) 64.9 % 10/14/21 16:20 Lymph % (Auto) 21.6 % 10/14/21 16:20 [place] % (Auto) 8.9 % 10/14/21 16:20 Eos % (Auto) 2.9 % 10/14/21 16:20 Baso % (Auto) 1.0 % 10/14/21 16:20 Neut # (Auto) 4.54 10^3/uL (1.8-7.7) 10/14/21 16:20 Lymph # (Auto) 1.5 10^3/uL (0.8-4.8) 10/14/21 16:20 [place] # (Auto) 0.6 10^3/uL (0.2-0.9) 10/14/21 16:20 Eos # (Auto) 0.2 10^3/uL (0.0-0.8) 10/14/21 16:20 Baso # (Auto) 0.1 10^3/uL (0.0-0.1) 10/14/21 16:20 Nucleated RBC % (auto) 0 % 10/14/21 16:20 Nucleated RBCs # 0.0 /100WBC 10/14/21 16:20 Sodium 138 mmol/L (136-145) 10/14/21 16:20 Potassium 4.3 mmol/L (3.5-5.1) 10/14/21 16:20 Chloride 103 mmol/L (98-107) 10/14/21 16:20 Carbon Dioxide 25 mmol/L (22-29) 10/14/21 16:20 Anion Gap 14.3 (5-19) 10/14/21 16:20 BUN 20 mg/dL (8-23) 10/14/21 16:20 Creatinine 1.2 mg/dL (0.7-1.2) 10/14/21 16:20 GFR Calculation Not Reportable 10/14/21 16:20 Glucose 100 mg/dL (65-115) 10/14/21 16:20 Calculated Osmolality 289 mOsm/kg (285-295) 10/14/21 16:20 Calcium 10.8 mg/dL (8.5-10.5) H 10/14/21 16:20 Total Bilirubin 0.6 mg/dL (0.15-1.2) 10/14/21 16:20 AST 25 U/L (0-40) 10/14/21 16:20 ALT 28 U/L (0-41) 10/14/21 16:20 Alkaline Phosphatase 107 IU/L (40-130) 10/14/21 16:20 Troponin T Baseline 26 ng/L (0-15) H 10/14/21 16:20 Total Protein 7.4 g/dL (6.6-8.7) 10/14/21 16:20 Albumin 4.4 g/dL (3.5-5.2) 10/14/21 16:20 Globulin 3.0 g/dL (1.3-4.6) 10/14/21 16:20 EKG Data EKG 1: I personally reviewed and interpreted this EKG as follows: EKG interpretation date: 10/14/21 EKG interpretation time: 16:43 Interpretation: paced hr [address] or t wave abnormalities qrs 126 qtc 397 Discharge Plan Discharge Patient Disposition: Home Clinical Impression: ICD (implantable cardioverter-defibrillator) discharge Condition: Stable Prescriptions: New amiodarone 400 mg tablet 400 mg PO BID 30 Days Qty: 60 0RF Discontinued sotalol 120 mg tablet 120 mg PO BID Qty: 180 3RF No Action simvastatin 80 mg tablet 40 mg PO DAILY@2000 0RF potassium chloride 20 mEq tablet extended release 20 meq PO DAILY@0800 0RF hydralazine 50 mg tablet 50 mg PO BID@0800,1999 0RF allopurinol 100 mg tablet 100 mg PO BID 0RF aspirin [Enteric Coated Aspirin] 81 mg tablet,delayed release (DR/EC) 81 mg PO DAILY@0800 0RF amlodipine 5 mg tablet 5 mg PO DAILY@0800 Qty: 90 3RF tamsulosin 0.4 mg capsule 0.4 mg PO DAILY@1999 0RF Vitamin C 1,000 mg Tablet 1,000 mg PO DAILY 0RF zinc 50 mg Tablet 50 mg PO DAILY 0RF apixaban 5 mg Tablet 2.5 mg PO BID 0RF Glucosamine Chondroitin 550-30-1 mg Capsule 1 cap PO BID 0RF Vitamin D3 2 cap PO DAILY 0RF lisinopril 40 mg tablet 20 mg PO DAILY@0800 Qty: 30 0RF magnesium oxide 400 mg magnesium capsule 400 mg PO BID Qty: 6 0RF Discharge Orders: Discharge ED (Routine); Ordered 10/14/21 Ordered By: Nazario Wilder Referrals: Tigre Price M.D [Physician] - 1-3 days Priscilla Long MD [Primary Care Provider] - Discharge Diet: Advance as tolerated Discharge Activity: Resume usual activity Patient Instructions: Implantable Cardioverter Defibrillator (DC) Coding Level of Care Code ED Metal Temperer for Landen Fwd Exam Comprehensive
[2021-10-14 16:41] VITALS: BP 141/91; PULSE 63; RESP 16; O2SAT 97
[2021-10-14 16:45] LABS: Troponin(5th) Baseline 26 ng/L (0-15)
[2021-10-14 16:54] LABS: Alanine Aminotransferase 28 U/L (0-41); Albumin Level 4.4 g/dL (3.5-5.2); Alkaline Phosphatase 107 IU/L (40-130); Anion Gap 14.3 (5-19); Aspartate Amino Transferase 25 U/L (0-40); Blood Urea Nitrogen 20 mg/dL (8-23); Calcium 10.8 mg/dL (8.5-10.5); Carbon Dioxide 25 mmol/L (22-29); Chloride 103 mmol/L (98-107); Glucose 100 mg/dL (65-115); Osmolality Calculated 289 mOsm/kg (285-295); Potassium 4.3 mmol/L (3.5-5.1); Sodium 138 mmol/L (136-145); Total Bilirubin 0.6 mg/dL (0.15-1.2); Total Protein 7.4 g/dL (6.6-8.7)
[2021-10-14] MEDS: amiodarone 200 mg Tablet 400 MG PO (17:22)
[2021-10-14 17:36] VITALS: BP 137/87; PULSE 65; RESP 16; O2SAT 98
--- NOTE | 2021-10-14 18:01 | ECG_ITS ---
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 Measurements Intervals [place] Rate: 70 P: 89 [place]: 249 QRS: -46 QRSD: 126 T: 0 QT: 377 QTc: 407 Interpretive Statements ELECTRONIC ATRIAL PACEMAKER POSSIBLE RIGHT VENTRICULAR CONDUCTION DELAY [RSR (QR) IN V1/V2] LEFT ANTERIOR FASCICULAR BLOCK [QRS AXIS <= -45, QR IN I, RS IN II] POSSIBLE ANTERIOR MYOCARDIAL INFARCTION , OF INDETERMINATE AGE [30 ms Q WAVE IN V3/V4, OR R < 0.2 mV IN V4] Compared to ECG 08/13/2021 10:37:46 Left anterior fascicular block now present Left-axis deviation no longer present Myocardial infarct finding still present Electronically Signed On 10-14-2021 20:13:55 AUTOMOTIVE PARTS SPECIALIST by Venkatesh Yoon M.D. [id number]
== END 2021-10-14 17:38 | disposition home or self-care (01) ==
PROVIDERS: Emergency Provider Emergency Medicine; PCP Family Medicine
DX: T82.118A Breakdown (mechanical) of other cardiac electronic device, initial encounter (principal); Z79.82 Long term (current) use of aspirin; I10 Essential (primary) hypertension; Z85.038 Personal history of other malignant neoplasm of large intestine; E78.5 Hyperlipidemia, unspecified; Z87.891 Personal history of nicotine dependence; Z95.810 Presence of automatic (implantable) cardiac defibrillator
CPT/HCPCS: 71045; 80053; 84484; 85025; 93005; 99283

== ENCOUNTER 2021-10-16 00:13 | Observation (INO) | payer OTHER, MEDICARE, SELFPAY ==
[2021-10-16] VITALS (13 sets, daily range): BP systolic 127–156; BP diastolic 79–94; PULSE 70–96; RESP 15–21; TEMP 36.8; O2SAT 94–97; BMI 30.8
--- NOTE | 2021-10-16 00:25 | ECG_ITS ---
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 Measurements Intervals [place] Rate: 76 P: 128 [place]: 219 QRS: -34 QRSD: 106 T: 32 QT: 405 QTc: 455 Interpretive Statements ELECTRONIC ATRIAL PACEMAKER LEFT AXIS DEVIATION [QRS AXIS < -30] POSSIBLE ANTERIOR MYOCARDIAL INFARCTION , PROBABLY OLD [30 ms Q WAVE IN V3/V4, OR R < 0.2 mV IN V4] Compared to ECG 10/14/2021 16:43:52 Left-axis deviation now present Left anterior fascicular block no longer present Myocardial infarct finding still present Electronically Signed On 10-16-2021 12:27:13 PRODUCTION DISPATCHER by Dashawn Hunt M.D. [id number]
--- NOTE | 2021-10-16 00:25 | XRR_ITS ---
PROCEDURE INFORMATION: Exam: XR Chest Exam date and time: 10/16/2021 12:25 AM Age: 76 years old Clinical indication: Chest pressure; Prior surgery; Surgery type: Defibrillator. ; Patient HX: Patient C/O chest pain after stating defibrillator fired prior to arrival. TECHNIQUE: Imaging protocol: XR of the chest. Views: 1 view. COMPARISON: CR (CHEST, ) 10/14/2021 4:56 PM FINDINGS: Tubes, catheters and devices: Stable left pacemaker. Lungs: Unremarkable. No consolidation. Pleural spaces: Unremarkable. No pleural effusion. No pneumothorax. Heart/Mediastinum: Unremarkable. No cardiomegaly. Bones/joints: Unremarkable. XR/XR chest 1V portable [id number] IMPRESSION: No acute findings.
--- NOTE | 2021-10-16 00:37 | ED_ITS ---
Documented by User: MIKIE Alcantara 10/19/21 07:04 HPI - Arrhythmia/Palpitations General: Chief Complaint: ER Hold Stated Complaint: cp Time Seen by Provider: 10/16/21 00:25 Source: patient Mode of arrival: EMS Limitations: no limitations History of Present Illness: Patient is a nice 76-year-old male with a hx of ventricular tachycardia/ventricular fibrillation now sp defibrillator since 2013 who presents to ED today via EMS for complaints that his defibrillator went off. Patient states this makes the third episode over the past 4 to 5 days. Patient was seen here in our ED yesterday for same complaint. 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 Patient states he has now had 3 doses of the amiodarone. He states defibrillator fired roughly around 10 PM this evening while at rest. Patient states he is completely asymptomatic prior to firing. Patient has no physical complaints right now other than feeling anxious that it could fire again. After reviewing previous documentation it looks like he has been having discharges since around July and was hospitalized for these complaints. Onset (ago): hour(s) Duration: now resolved Associated symptoms: Reports no associated symptoms; Deny nausea, pre-syncope, syncope or vomiting Review of Systems Const: Denies: fever(s), chills, body aches, fatigue or malaise Eyes: Denies: change in vision or blurry vision Card: Reports: chest pain (when defibrillator went off but none currently); Denies: palpitations, edema, lightheadedness, syncope, pre-syncope, dyspnea on exertion or orthopnea Resp: Denies: dyspnea GI: Denies: abdominal pain, nausea or vomiting Musc: Denies: extremity pain, extremity swelling, joint pain or joint swelling Neuro: Denies: headache(s), numbness in extremities, weakness in extremities, sensory changes, dizziness or vertigo [facility] ED PFSH: Medical History (Updated 10/23/21 @ 09:14 by Tigre Price M.D) Cardiomyopathy, nonischemic Chronic kidney disease (CKD) COVID-19 Essential (primary) hypertension Gout History of colon cancer Hyperlipemia Hypomagnesemia ICD (implantable cardioverter-defibrillator) discharge ICD (implantable cardioverter-defibrillator) in place Nonischemic cardiomyopathy Ventricular fibrillation, paroxysmal Ventricular tachycardia Surgical History History of colon resection History of ear surgery Family History Father Cancer Dementia Social History Smoking and tobacco status: former smoker Alcohol intake: current Alcohol intake frequency: holidays/special occasions only Marital status: Current occupational status: retired Physical Exam Const: COMMON NORMALS: no acute distress, average body habitus, patient oriented x3, no limitations, healthy appearing, alert and well nourished Chest: COMMONS NORMALS: normal inspection of the chest and normal palpation of entire chest wall Resp: COMMON NORMALS: normal respiratory effort and clear to auscultation bilaterally AUSCULTATION: clear to auscultation bilaterally Cardio: COMMON NORMALS: regular rate and regular rhythm RATE: regular rate RHYTHM: regular rhythm GI: COMMON NORMALS: Normal to inspection, nondistended, normoactive bowel sounds present, Soft to palpation, non-tender, No hepatosplenomegaly present and no masses PALPATION: Yes Soft to palpation and Yes No hepatosplenomegaly present Extremity: COMMON NORMALS: capillary refill normal, no clubbing, cyanosis or edema, no calf tenderness and no pedal edema Neuro: COMMON NORMALS: patient oriented x3 SENSORIUM/ORIENTATION: Yes alert Course Vital Signs: Vital signs: Vital Signs Temperature 97.7 F 10/18/21 13:54 Pulse Rate 70 10/18/21 13:54 Respiratory Rate 16 10/18/21 13:54 Blood Pressure 137/83 10/18/21 13:54 Pulse Oximetry 95 10/18/21 13:54 MDM - Arrhythmia/Palpitations Medical Decision Making Care will be transferred to Dr. Courtney pending his interrogation report. Dr. Courtney has already spoken to hospitalist Dr. Christian who is planning on admitting patient. Lab Data : 10/17/21 02:50 10/18/21 05:00 Radiology Impressions Chest X-Ray 10/16/21 00:25 IMPRESSION: No acute findings. Laboratory Results WBC 7.7 10^3/uL (4.0-10.0) 10/16/21 00:20 RBC 5.29 10^6/uL (4.1-5.3) 10/16/21 00:20 Hgb 15.0 g/dL (11.7-16.6) 10/16/21 00:20 Hct 47.2 % (42.0-52.0) 10/16/21 00:20 MCV 89.2 fl (80-94) 10/16/21 00:20 MCH 28.4 pg (28.0-34.0) 10/16/21 00:20 MCHC 31.8 g/dL (30.0-36.0) 10/16/21 00:20 RDW 15.0 % (12.1-15.1) 10/16/21 00:20 Plt Count 241 10^3/cmm (130-400) 10/16/21 00:20 MPV 10.4 fL (7.4-10.4) 10/16/21 00:20 Neut % (Auto) 63.6 % 10/16/21 00:20 Lymph % (Auto) 21.9 % 10/16/21 00:20 Terry % (Auto) 10.5 % 10/16/21 00:20 Eos % (Auto) 2.3 % 10/16/21 00:20 Baso % (Auto) 0.8 % 10/16/21 00:20 Neut # (Auto) 4.88 10^3/uL (1.8-7.7) 10/16/21 00:20 Lymph # (Auto) 1.7 10^3/uL (0.8-4.8) 10/16/21 00:20 Terry # (Auto) 0.8 10^3/uL (0.2-0.9) 10/16/21 00:20 Eos # (Auto) 0.2 10^3/uL (0.0-0.8) 10/16/21 00:20 Baso # (Auto) 0.1 10^3/uL (0.0-0.1) 10/16/21 00:20 Nucleated RBC % (auto) 0 % 10/16/21 00: Nucleated RBCs # 0.0 /100WBC 10/16/21 00:20 Sodium 140 mmol/L (136-145) 10/16/21 00:20 Potassium 4.2 mmol/L (3.5-5.1) 10/16/21 00:20 Chloride 103 mmol/L (98-107) 10/16/21 00:20 Carbon Dioxide 25 mmol/L (22-29) 10/16/21 00:20 Anion Gap 16.2 (5-19) 10/16/21 00:20 BUN 19 mg/dL (8-23) 10/16/21 00:20 Creatinine 1.0 mg/dL (0.7-1.2) 10/16/21 00:20 GFR Calculation Not Reportable 10/16/21 00:20 Glucose 156 mg/dL (65-115) H 10/16/21 00:20 Calculated Osmolality 295 mOsm/kg (285-295) 10/16/21 00:20 Calcium 11.1 mg/dL (8.5-10.5) H 10/16/21 00:20 Magnesium 2.1 mg/dL (1.7-2.3) 10/16/21 00:20 Total Bilirubin 0.7 mg/dL (0.15-1.2) 10/16/21 00:20 AST 28 U/L (0-40) 10/16/21 00:20 ALT 30 U/L (0-41) 10/16/21 00:20 Alkaline Phosphatase 133 IU/L (40-130) H 10/16/21 00:20 Troponin T Baseline 24 ng/L (0-15) H 10/16/21 00:20 Troponin T 120 Minute 25.56 ng/L (0-15) H 10/16/21 02:20 Delta Troponin T 1.56 ABS# (0-10) 10/16/21 02:20 NT-Pro-B Natriuret Pep 199 pg/mL (0-125) H 10/16/21 00:20 Total Protein 7.2 g/dL (6.6-8.7) 10/16/21 00:20 Albumin 4.6 g/dL (3.5-5.2) 10/16/21 00:20 Globulin 2.6 g/dL (1.3-4.6) 10/16/21 00:20 Discharge Plan Discharge Patient Disposition: Placed in Observation Admit Provider: Liss Christian Clinical Impression: ICD (implantable cardioverter-defibrillator) discharge, Cardiomyopathy, ramiro schemic Discharge Diet: Cardiac Discharge Activity: Limit activity as instructed Sign Out Sign Out Data: Patient Sign Out occurred on 10/16/21 at 02:15. Patient's care was discussed, and care was transferred from to Anil Courtney MD. Coding Level of Care Code ED Refrigerating Machine Operator for Chg Fwd Exam Detailed Documented by User: Anil Courtney MD 10/23/21 11:47 HPI - Arrhythmia/Palpitations General: Chief Complaint: ER Hold Stated Complaint: cp Time Seen by Provider: 10/16/21 00:25 PFSH ED PFSH: Medical History (Updated 10/23/21 @ 09:14 by Tigre Price M.D) Cardiomyopathy, nonischemic Chronic kidney disease (CKD) COVID-19 Essential (primary) hypertension Gout History of colon cancer Hyperlipemia Hypomagnesemia ICD (implantable cardioverter-defibrillator) discharge ICD (implantable cardioverter-defibrillator) in place Nonischemic cardiomyopathy Ventricular fibrillation, paroxysmal Ventricular tachycardia Surgical History History of colon resection History of ear surgery Family History Father Cancer Dementia Social History Smoking and tobacco status: former smoker Alcohol intake: current Alcohol intake frequency: holidays/special occasions only Marital status: Current occupational status: retired Course Vital Signs: Vital signs: Vital Signs Temperature 97.7 F 10/18/21 13:54 Pulse Rate 70 10/18/21 13:54 Respiratory Rate 16 10/18/21 13:54 Blood Pressure 137/83 10/18/21 13:54 Pulse Oximetry 95 10/18/21 13:54 MDM - Arrhythmia/Palpitations Medical Decision Making Care will be transferred to Dr. Courtney pending his interrogation report. Dr. Courtney has already spoken to hospitalist Dr. Christian who is planning on admitting patient. I discussed this case with MIKIE Alcantara. I personally evaluated the patient and reperformed sweeney portions of E/M. I agree as documented above. Discussed case with cardiology, given that patient has had multiple ICD discharges and arrhythmias despite medication change from previous ED visit he requires further inpatient evaluation. Discussed with hospitalist service who agrees to admit the patient. Patient agreeable to be admitted. Anil Courtney MD Emergency Medicine Lab Data : 10/17/21 02:50 10/18/21 05:00 Radiology Impressions Chest X-Ray 10/16/21 00:25 IMPRESSION: No acute findings. Laboratory Results WBC 7.7 10^3/uL (4.0-10.0) 10/16/21 00:20 RBC 5.29 10^6/uL (4.1-5.3) 10/16/21 00:20 Hgb 15.0 g/dL (11.7-16.6) 10/16/21 00:20 Hct 47.2 % (42.0-52.0) 10/16/21 00:20 MCV 89.2 fl (80-94) 10/16/21 00:20 MCH 28.4 pg (28.0-34.0) 10/16/21 00:20 MCHC 31.8 g/dL (30.0-36.0) 10/16/21 00:20 RDW 15.0 % (12.1-15.1) 10/16/21 00:20 Plt Count 241 10^3/cmm (130-400) 10/16/21 00:20 MPV 10.4 fL (7.4-10.4) 10/16/21 00:20 Neut % (Auto) 63.6 % 10/16/21 00:20 Lymph % (Auto) 21.9 % 10/16/21 00:20 Terry % (Auto) 10.5 % 10/16/21 00:20 Eos % (Auto) 2.3 % 10/16/21 00:20 Baso % (Auto) 0.8 % 10/16/21 00:20 Neut # (Auto) 4.88 10^3/uL (1.8-7.7) 10/16/21 00:20 Lymph # (Auto) 1.7 10^3/uL (0.8-4.8) 10/16/21 00:20 Terry # (Auto) 0.8 10^3/uL (0.2-0.9) 10/16/21 00:20 Eos # (Auto) 0.2 10^3/uL (0.0-0.8) 10/16/21 00:20 Baso # (Auto) 0.1 10^3/uL (0.0-0.1) 10/16/21 00:20 Nucleated RBC % (auto) 0 % 10/16/21 00: Nucleated RBCs # 0.0 /100WBC 10/16/21 00:20 Sodium 140 mmol/L (136-145) 10/16/21 00:20 Potassium 4.2 mmol/L (3.5-5.1) 10/16/21 00:20 Chloride 103 mmol/L (98-107) 10/16/21 00:20 Carbon Dioxide 25 mmol/L (22-29) 10/16/21 00:20 Anion Gap 16.2 (5-19) 10/16/21 00:20 BUN 19 mg/dL (8-23) 10/16/21 00:20 Creatinine 1.0 mg/dL (0.7-1.2) 10/16/21 00:20 GFR Calculation Not Reportable 10/16/21 00:20 Glucose 156 mg/dL (65-115) H 10/16/21 00:20 Calculated Osmolality 295 mOsm/kg (285-295) 10/16/21 00:20 Calcium 11.1 mg/dL (8.5-10.5) H 10/16/21 00:20 Magnesium 2.1 mg/dL (1.7-2.3) 10/16/21 00:20 Total Bilirubin 0.7 mg/dL (0.15-1.2) 10/16/21 00:20 AST 28 U/L (0-40) 10/16/21 00:20 ALT 30 U/L (0-41) 10/16/21 00:20 Alkaline Phosphatase 133 IU/L (40-130) H 10/16/21 00:20 Troponin T Baseline 24 ng/L (0-15) H 10/16/21 00:20 Troponin T 120 Minute 25.56 ng/L (0-15) H 10/16/21 02:20 Delta Troponin T 1.56 ABS# (0-10) 10/16/21 02:20 NT-Pro-B Natriuret Pep 199 pg/mL (0-125) H 10/16/21 00:20 Total Protein 7.2 g/dL (6.6-8.7) 10/16/21 00:20 Albumin 4.6 g/dL (3.5-5.2) 10/16/21 00:20 Globulin 2.6 g/dL (1.3-4.6) 10/16/21 00:20 Discharge Plan Discharge Patient Disposition: Placed in Observation Admit Provider: Liss Christian Clinical Impression: ICD (implantable cardioverter-defibrillator) discharge, Cardiomyopathy, nonischemic Discharge Diet: Cardiac Discharge Activity: Limit activity as instructed Sign Out Sign Out Data: Patient Sign Out occurred on 10/16/21 at 02:15. Patient's care was discussed, and care was transferred from to Anil Courtney MD. Coding Level of Care Code ED Refrigerating Machine Operator for [place] Fwd Exam Detailed
[2021-10-16 00:46] LABS: Basophils # 0.1 10^3/uL (0.0-0.1); Basophils % 0.8 %; Eosinophils # 0.2 10^3/uL (0.0-0.8); Eosinophils % 2.3 %; Hematocrit 47.2 % (42.0-52.0); Lymphocytes # 1.7 10^3/uL (0.8-4.8); Lymphocytes % 21.9 %; Mean Corpuscular HGB Conc 31.8 g/dL (30.0-36.0); Mean Corpuscular Hemoglobin 28.4 pg (28.0-34.0); Mean Corpuscular Volume 89.2 fl (80-94); Mean Platelet Volume 10.4 fL (7.4-10.4); Monocytes # 0.8 10^3/uL (0.2-0.9); Monocytes % 10.5 %; Neutrophils # 4.88 10^3/uL (1.8-7.7); Neutrophils % 63.6 %; Nucleated Red Blood Cells % 0 %; Platelet Count 241 10^3/cmm (130-400); Red Blood Count 5.29 10^6/uL (4.1-5.3); White Blood Count 7.7 10^3/uL (4.0-10.0)
[2021-10-16 01:05] LABS: Alanine Aminotransferase 30 U/L (0-41); Albumin Level 4.6 g/dL (3.5-5.2); Alkaline Phosphatase 133 IU/L (40-130); Anion Gap 16.2 (5-19); Aspartate Amino Transferase 28 U/L (0-40); Blood Urea Nitrogen 19 mg/dL (8-23); Calcium 11.1 mg/dL (8.5-10.5); Carbon Dioxide 25 mmol/L (22-29); Chloride 103 mmol/L (98-107); Creatinine Clr Calc Pharmacy 75.9081; Globulin 2.6 g/dL (1.3-4.6); Glucose 156 mg/dL (65-115); Osmolality Calculated 295 mOsm/kg (285-295); Potassium 4.2 mmol/L (3.5-5.1); Sodium 140 mmol/L (136-145); Total Bilirubin 0.7 mg/dL (0.15-1.2); Total Protein 7.2 g/dL (6.6-8.7)
[2021-10-16 01:06] LABS: Troponin(5th) Baseline 24 ng/L (0-15)
--- NOTE | 2021-10-16 01:19 | PC.NURSE ---
patients defrillator interrogated via Fransico Kendrick RN with no difficultie.s patient in no obivous distress. patient c/o sudden mild headache. Lore Aggarwal. Provider notified and will obtian order for tylenol .
[2021-10-16 01:58] LABS: Magnesium 2.1 mg/dL (1.7-2.3)
[2021-10-16] MEDS: acetaminophen 500 mg Tablet 1000 MG PO (02:02)
--- NOTE | 2021-10-16 02:25 | ECG_ITS ---
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 Measurements Intervals [place] Rate: 70 P: 161 MS: 238 QRS: -44 QRSD: 106 T: 3 QT: 405 QTc: 437 Interpretive Statements ELECTRONIC ATRIAL PACEMAKER LEFT AXIS DEVIATION [QRS AXIS < -30] POSSIBLE ANTERIOR MYOCARDIAL INFARCTION , PROBABLY OLD [30 ms Q WAVE IN V3/V4, OR R < 0.2 mV IN V4] Compared to ECG 10/16/2021 00:21:18 No significant changes Electronically Signed On 10-16-2021 12:30:43 TRANSIT MIXER OPERATOR by Dashawn Hunt M.D. [id number]
[2021-10-16 02:51] LABS: Troponin 5 2HR 25.56 ng/L (0-15)
[2021-10-16 03:11] LABS: NT Pro B Type Natriuretic Pept 199 pg/mL (0-125)
[2021-10-16 03:13] LABS: Troponin 5 2HR Delta 1.56 ABS# (0-10)
--- NOTE | 2021-10-16 04:07 | P.HP_ITS ---
Providers/Chief Complaint Admitting Physician: Liss Christian Primary Care Provider: Priscilla Logn MD Chief Complaint: cp History of Present Illness 76-year-old male who presents to the hospital a free felt his AICD discharge. Patient was recently seen multiple times for similar complaint. He was previously on sotalol which was changed to amiodarone 400 mg twice daily. Stated he had taken as prescribed. Upon arrival the hospital was complaining of dizziness and mild headache. Device interrogation report noted VFib at on 2023 at 10:23 p.m. during which time he received a 41J shock. Stable at the time of my eval. Cardiology consulted in ER. Labs noted Troponin T baseline of 24, repeat at 2hr of 25 otherwise stable labs. Review of Systems Narrative: Comphehensive review of all systems found to be negative other than pertinent findings noted in HPI Medications/Allergies Home Medications Medication Instructions Recorded Confirmed Last Taken Type allopurinol 100 mg tablet 100 mg PO BID 11/05/19 10/05/21 08/10/21 07:30 History aspirin 81 mg tablet,delayed 81 mg PO DAILY@0800 11/05/19 10/05/21 08/10/21 07:30 History release (Enteric Coated Aspirin) hydralazine 50 mg tablet 50 mg PO BID@0800,1999 tab 11/05/19 10/05/21 08/10/21 07:30 History potassium chloride 20 mEq 20 meq PO DAILY@0800 11/05/19 10/05/21 08/10/21 07:30 History tablet,extended release simvastatin 80 mg tablet 40 mg PO DAILY@199911/05/19 10/05/21 08/09/21 History tamsulosin 0.4 mg capsule 0.4 mg PO DAILY@199911/12/20 10/05/21 08/09/21 History Vitamin D3 2 cap PO DAILY 08/10/21 10/05/21 08/10/21 History apixaban 5 mg tablet 2.5 mg PO BID 08/10/21 10/05/21 08/10/21 07:30 History ascorbic acid (vitamin C) 1,000 mg 1,000 mg PO DAILY 08/10/21 10/05/21 08/10/21 History tablet (Vitamin C) glucosamine sulf dipot 1 cap PO BID 08/10/21 10/05/21 Unknown History chlr,msm,chond 550 mg-C 30 mg-george 1 mg capsule (Glucosamine Chondroitin) zinc 50 mg tablet 50 mg PO DAILY 08/10/21 10/05/21 08/10/21 History lisinopril 40 mg tablet 20 mg PO DAILY@0800 #30 tab 08/13/21 10/05/21 08/10/21 07:30 Rx magnesium oxide 400 mg PO BID #6 cap 08/13/21 10/05/21 Unknown Rx amiodarone 400 mg tablet 400 mg PO BID 30 Days #60 tab 10/14/21 Unknown Rx amlodipine 5 mg tablet 5 mg PO DAILY@0800 #90 tab 10/14/21 Unknown Rx Allergies Allergy/AdvReac Type Severity Reaction Status Date / Time No Known Allergies Allergy Verified 10/14/21 16:10 PFSH Acute PFSH: Medical History (Updated 10/16/21 @ 03:24 by Anil Courtney MD) Chronic kidney disease (CKD) Essential (primary) hypertension Gout History of colon cancer Hyperlipemia ICD (implantable cardioverter-defibrillator) in place Nonischemic cardiomyopathy Ventricular tachycardia Surgical History History of colon resection Family History Father Cancer Dementia Social History Smoking and tobacco status: former smoker Alcohol intake: current Alcohol intake frequency: holidays/special occasions only Marital status: Current occupational status: retired Vitals/I&O/Wt Last Vital Signs Temp 98.3 F 10/16/21 00:20 Pulse 70 10/16/21 02:30 Resp 20 H 10/16/21 02:30 BP 141/81 10/16/21 02:30 Pulse Ox 97 10/16/21 02:30 Weight last 48 hrs Weight 97.522 kg Physical Exam Narrative: General: Alert awake oriented x 3, NAD HEENT; EOMI CVS: RRR CHEST: CLTABL ABD; SOFT NT,ND Ext No edema Data : 10/16/21 00:20 10/16/21 00:20 A&P Assessment and plan (1) ICD (implantable cardioverter-defibrillator) discharge: Status: Acute (2) Cardiomyopathy, nonischemic: Status: Acute (3) Ventricular fibrillation, paroxysmal: Status: Acute Plan AICD discharge VF noted 40J shock delivered Continue amiodarone 400 mg PO BID Cardiology consulted in ER Repeat Lab in am Maintain Mg 2.0 and K > 3.5 Monitor on telemetry 08/11/21 ECHO noted - EF 35-40% Continue eliquis 2.5 mg PO BID Additional Medical Problems Chronic systolic HF Hypertension Hyperlipidemia Gout BPH DVT ppx Eliquis as noted above. Assessment and Plan Plan AICD discharge VF noted 40J shock delivered Continue amiodarone 400 mg PO BID Cardiology consulted in ER Repeat Lab in am Maintain Mg 2.0 and K > 3.5 Monitor on telemetry 08/11/21 ECHO noted - EF 35-40% Continue eliquis 2.5 mg PO BID Additional Medical Problems Chronic systolic HF Hypertension Hyperlipidemia Gout BPH DVT ppx Eliquis as noted above. Attestations Medical Necessity Statement*: Anticipate Less than 2 midnight stay in hospital for eval and treatement Time Spent in Patient Care: Greater than 35 minutes (>than 50% of time spent in counselling and/or direct pt care on unit) . Coding Level of Care Code Acute Middle School Music Teacher for [facility] Fwd Diagnoses ICD (implantable cardioverter-defibrillator) discharge Z45.02 Cardiomyopathy, nonischemic I42.8 Ventricular fibrillation, paroxysmal I49.01
--- NOTE | 2021-10-16 06:25 | ECG_ITS ---
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 Measurements Intervals [place] Rate: 70 P: 195 [place]: 255 QRS: -36 QRSD: 108 T: 8 QT: 411 QTc: 444 Interpretive Statements ELECTRONIC ATRIAL PACEMAKER LEFT AXIS DEVIATION [QRS AXIS < -30] MINIMAL ST DEPRESSION [0.025+ mV ST DEPRESSION] Compared to ECG 10/16/2021 02:17:57 ST (T wave) deviation now present Myocardial infarct finding no longer present Electronically Signed On 10-16-2021 12:32:53 BELLING MACHINE OPERATOR by Dashawn Hunt M.D. [id number]
[2021-10-16 06:38] LABS: Troponin 5 6HR 25.86 ng/L (0-15)
[2021-10-16 06:40] LABS: Troponin 5 6HR Delta 1.86 ng/L (0-12)
[2021-10-16] MEDS: hyDRALAzine 50 mg Tablet PO ×2 (08:06→19:50)
[2021-10-16] MEDS: pantoprazole DR 40 mg Tablet PO (08:06)
[2021-10-16] MEDS: amiodarone 200 mg Tablet 400 MG PO ×3 (08:06→19:50)
[2021-10-16] MEDS: apixaban 5 mg Tablet 2.5 MG PO ×2 (08:07→19:50)
--- NOTE | 2021-10-16 12:27 | PC.NURSE ---
REPORT TO RAYA, NURSE ON CSU
--- NOTE | 2021-10-16 12:45 | PC.NURSE ---
PATIENT TAKEN TO CSU VIA BED WITH STAFF- ALL BELONGINGS WITH PATIENT
--- NOTE | 2021-10-16 13:35 | P.CONIM_ITS ---
Providers/Reason For Consult Consulting Physician/Specialty*: Cardiovascular medicine Reason for Consult*: Repeated defibrillator fired repeated defibrillator firing Requesting Physician: Hospitalist Attending Physician: Desmond Ram MD Primary Care Provider: Priscilla Long MD History of Present Illness History of Present Illness Frederic Chan is a 76 year old male who moved here several years ago from [place]. I saw him after he first moved here. This was before I retired. He is now 76 and has a prior history of ventricular fibrillation arrest which was defibrillated. At that time coronary angiography revealed mild nonobstructive coronary disease with an ejection fraction of 45%. He was placed on sotalol and a defibrillator was placed. He did well for several years. After he moved here I saw him once or twice and then turned him over to Dr. Price. His other medical problems include chronic kidney disease, hypertension, gout, dyslipidemia, nonischemic cardiomyopathy and he did have Covid treated with a monoclonal antibody. His ejection fraction was about 45% when he first arrived here. It has decreased somewhat. He has done well for the last couple years and then 2 or 3 months ago began to have episodes of ventricular tachycardia requiring antitachycardia pacing and ventricular fibrillation. On August 11 he was shocked by the device, came to the hospital and his sotalol was increased from 80 mg twice a day to 120 mg in the morning and 80 mg in the evening. At that time an echo showed an ejection fraction of 35 to 40% and he was sent home. On the of this month, now just 2 days ago the device went off again and he was switched to amiodarone 400 mg twice a day. I do not think he got a sotalol free period. The device went off again this morning and he arrived at the emergency room. He has had several episodes of antitachycardia pacing and defibrillator shocks. His EKG shows sinus rhythm with nonspecific changes. His troponin is 26 and there has been no interim change or no delta change. He has been admitted and we have been asked to see him for further advice. He has had several runs of nonsustained ventricular rhythms which are fairly slow. Review of Systems Narrative: Review of systems is unremarkable. Medications/Allergies Home Medications Medication Instructions Recorded Confirmed Last Taken Type allopurinol 100 mg tablet 100 mg PO BID 11/05/19 10/16/21 10/15/21 History aspirin 81 mg tablet,delayed 81 mg PO DAILY@0800 11/05/19 10/16/21 10/15/21 History release (Enteric Coated Aspirin) hydralazine 50 mg tablet 50 mg PO BID@0800,1999 tab 11/05/19 10/16/21 10/16/21 History simvastatin 80 mg tablet 40 mg PO DAILY@199911/05/19 10/16/21 10/15/21 History tamsulosin 0.4 mg capsule 0.4 mg PO DAILY@199911/12/20 10/16/21 10/15/21 History apixaban 5 mg tablet 2.5 mg PO BID 08/10/21 10/16/21 10/16/21 History glucosamine sulf dipot 1 cap PO BID 08/10/21 10/16/21 Unknown History chlr,msm,chond 550 mg-C 30 mg-george 1 mg capsule (Glucosamine Chondroitin) lisinopril 40 mg tablet 20 mg PO DAILY@0800 #30 tab 08/13/21 10/16/21 10/15/21 Rx amiodarone 400 mg tablet 400 mg PO BID 30 Days #60 tab 10/14/21 10/16/21 10/16/21 Rx amlodipine 5 mg tablet 5 mg PO DAILY@0800 #90 tab 10/14/21 10/16/21 10/15/21 Rx Allergies Allergy/AdvReac Type Severity Reaction Status Date / Time No Known Allergies Allergy Verified 10/16/21 08:21 Current Medications Generic Name Dose Route Start Last Admin Trade Name Freq PRN Reason Stop Dose Admin Amiodarone HCl 400 mg 10/16/21 09:00 10/16/21 08:06 Amiodarone 200 Mg Tablet PO 400 mg BID EVELYN Administration Apixaban 2.5 mg 10/16/21 09:00 10/16/21 08:07 Apixaban 5 Mg Tablet PO 2.5 mg BID@0900,2100 EVELYN Administration Hydralazine HCl 50 mg 10/16/21 08:00 10/16/21 08:06 Hydralazine 50 Mg Tablet PO 50 mg BID@0800,1999 EVELYN Administration Pantoprazole Sodium 40 mg 10/16/21 09:00 10/16/21 08:[address] 40 Mg Tablet PO 40 mg DAILY EVELYN Administration PFSH Acute PFSH: Medical History Chronic kidney disease (CKD) Essential (primary) hypertension Gout History of colon cancer Hyperlipemia ICD (implantable cardioverter-defibrillator) in place Nonischemic cardiomyopathy Ventricular tachycardia Surgical History History of colon resection Family History Father Cancer Dementia Social History Smoking and tobacco status: former smoker Alcohol intake: current Alcohol intake frequency: holidays/special occasions only Marital status: Current occupational status: retired Vitals/I&O/Wt Last Vital Signs Temp 98.3 F 10/16/21 00:20 Pulse 82 10/16/21 12:00 Resp 18 10/16/21 12:00 BP 135/83 10/16/21 12:00 Pulse Ox 95 10/16/21 12:00 Weight last 48 hrs Weight 215 lb Weight 215 lb Physical Exam Narrative: GENERAL: In general he looks and feels well. He admits to being anxious about this. HEENT: Exam within normal limits. NECK: Supple without jugular vein distention. The carotid upstroke is normal without bruits. BACK: Exam normal. LUNGS: Clear. HEART: Regular rate and rhythm. ABDOMEN: Benign without organomegaly or tenderness. EXTREMITIES: No edema. NEUROLOGIC: Exam normal. SKIN: Unremarkable. Data : 10/16/21 00:20 10/16/21 00:20 A&P Assessment and plan (1) ICD (implantable cardioverter-defibrillator) discharge: Status: Acute (2) Cardiomyopathy, nonischemic: Status: Acute (3) Ventricular fibrillation, paroxysmal: Status: Acute (4) COVID-19: Status: Acute Plan It has now been about 3 days since the sotalol was discontinued so most of it should be washed out. He is in the interim zone between discontinuing the sotalol and ramping up the amiodarone which takes a while. Today what I am going to do is increase the amiodarone to 400 mg 3 times a day. We need to watch him carefully in the hospital. If he continues to have problems then I would switch him to IV amiodarone until we can get it under control. If the amiodarone does not work then 1 could add mexiletine. The final step would be an electrophysiology consult in the hopes that an ablation could be done. Coding Level of Care Code New Pt Acute Human Factors Advisor Lead for Chg Fwd Patient Type New History Detailed Exam Detailed Medical Decision Making Moderate Complexity Diagnoses ICD (implantable cardioverter-defibrillator) discharge Z45.02 Cardiomyopathy, nonischemic I42.8 Ventricular fibrillation, paroxysmal I49.01 COVID-19 U07.1 Time Spent (min) 35
[2021-10-17] VITALS (11 sets, daily range): BP systolic 129–156; BP diastolic 85–98; PULSE 70–81; RESP 14–18; TEMP 36.6–36.8; O2SAT 94–97
[2021-10-17 03:51] LABS: Basophils # 0.1 10^3/uL (0.0-0.1); Basophils % 0.8 %; Eosinophils # 0.2 10^3/uL (0.0-0.8); Eosinophils % 2.1 %; Hematocrit 42.3 % (42.0-52.0); Hemoglobin 13.6 g/dL (11.7-16.6); Lymphocytes # 1.8 10^3/uL (0.8-4.8); Lymphocytes % 24.1 %; Mean Corpuscular HGB Conc 32.2 g/dL (30.0-36.0); Mean Corpuscular Hemoglobin 28.8 pg (28.0-34.0); Mean Corpuscular Volume 89.6 fl (80-94); Mean Platelet Volume 10.8 fL (7.4-10.4); Monocytes # 0.7 10^3/uL (0.2-0.9); Neutrophils # 4.82 10^3/uL (1.8-7.7); Neutrophils % 63.5 %; Nucleated Red Blood Cells % 0 %; Platelet Count 210 10^3/cmm (130-400); Red Blood Count 4.72 10^6/uL (4.1-5.3); Red Cell Distribution Width 15.2 % (12.1-15.1); White Blood Count 7.6 10^3/uL (4.0-10.0)
[2021-10-17 04:17] LABS: Albumin Level 3.8 g/dL (3.5-5.2); Blood Urea Nitrogen 13 mg/dL (8-23); Calcium 10.3 mg/dL (8.5-10.5); Carbon Dioxide 24 mmol/L (22-29); Chloride 104 mmol/L (98-107); Globulin 2.7 g/dL (1.3-4.6); Glucose 117 mg/dL (65-115); Osmolality Calculated 287 mOsm/kg (285-295); Sodium 138 mmol/L (136-145); Total Bilirubin 0.8 mg/dL (0.15-1.2); Total Protein 6.5 g/dL (6.6-8.7)
[2021-10-17 04:21] LABS: Anion Gap 14.7 (5-19); Potassium 4.7 mmol/L (3.5-5.1)
[2021-10-17 04:22] LABS: Alanine Aminotransferase 25 U/L (0-41); Alkaline Phosphatase 88 IU/L (40-130); Aspartate Amino Transferase 33 U/L (0-40)
[2021-10-17] MEDS: apixaban 5 mg Tablet 2.5 MG PO ×2 (09:23→19:39)
[2021-10-17] MEDS: hyDRALAzine 50 mg Tablet PO ×2 (09:23→19:39)
[2021-10-17] MEDS: pantoprazole DR 40 mg Tablet PO (09:23)
[2021-10-17] MEDS: amiodarone 200 mg Tablet 400 MG PO ×3 (09:24→19:39)
--- NOTE | 2021-10-17 09:30 | P.PN_ITS ---
Subjective Subjective: Cardiology coverage Patient status post multiple ICD discharges for V. tach/V. fib. History of no nischemic cardiomyopathy with ejection fraction of 35 to 40%. Patient has not had any recurrence of V. tach/V. fib since the hospital admission. He seems to be tolerating the amiodarone so far well. Complains of being anxious because of the ICD discharges. Medications: Medication Review Details: Current Medications Acetaminophen (Acetaminophen 325 Mg Tablet) 650 mg PO Q6H PRN PRN Reason: Mild/Mod Pain Or Temp >/= 101 Amiodarone HCl (Amiodarone 200 Mg Tablet) 400 mg PO TID [facility] Last Admin: 10/17/21 09:24 Dose: 400 mg Documented by: Apixaban (Apixaban 5 Mg Tablet) 2.5 mg PO BID@0900,2100 [facility] Last Admin: 10/17/21 09:23 Dose: 2.5 mg Documented by: Hydralazine HCl (Hydralazine 50 Mg Tablet) 50 mg PO BID@0800,2000 [facility] Last Admin: 10/17/21 09:23 Dose: 50 mg Documented by: Ondansetron HCl (Ondansetron 2 Mg/Ml Sdv 2 Ml) 4 mg IVP Q8H PRN PRN Reason: vomiting, or N/V if npo Pantoprazole Sodium (Pantoprazole Dr 40 Mg Tablet) 40 mg PO DAILY [facility] Last Admin: 10/17/21 09:23 Dose: 40 mg Documented by: Vitals/I&O/Wt Last Vital Signs Temp 98.2 F 10/17/21 03:02 Pulse 80 10/17/21 09:08 Resp 18 10/17/21 03:02 BP 154/98 10/17/21 03:02 Pulse Ox 94 10/17/21 09:08 10/16/21 10/17/21 10/17/21 22:59 06:59 14:59 Intake Total 60 / 60 60 / 120 Output Total 800 / 800 400 / 1200 Balance -740 / -740 -340 / -1080 Weight last 48 hrs Weight 215 lb Weight 215 lb Physical Exam Narrative: GENERAL: The patient is alert and oriented times three. Not in any acute distress. Appears to be somewhat nervous HEENT: No significant pallor, icterus or lymphadenopathy.Oral cavity: There are no mucous membrane lesions. NECK: Trachea appears to be central. No masses noted. No JVD or thyromegaly ap preciated. RESPIRATORY: Chest is symmetrical. No intercostals muscle retraction or any accessory muscle activation. There is no chest wall tenderness. Breath sounds are heard bilaterally. No rales or rhonchi heard. No evidence of any consolidation. BREASTS: Deferred. HEART: The heart sounds are normal. No S3 or S4. No significant murmurs. No pericardial rub ABDOMEN: No vessel pulsations or distention. No tenderness. No organomegaly appreciated. Bowel sounds are normally heard. : Deferred. RECTAL: Deferred. LYMPHATIC: No lymphadenopathy noted in the neck or groin. EXTREMITIES: No edema or cyanosis. No clubbing. MUSCULOSKELETAL: No acute joint deformities or swelling SKIN: There are no significant rashes or ecchymosis NEUROPSYCHIATRIC: The patient is alert and oriented x3. Appears to be in a good mood. No tremors or rigidity noted. Data : 10/17/21 02:50 10/17/21 02:50 Other Labs: Laboratory Last Values WBC 7.6 10^3/uL (4.0-10.0) 10/17/21 02:50 RBC 4.72 10^6/uL (4.1-5.3) 10/17/21 02:50 Hgb 13.6 g/dL (11.7-16.6) 10/17/21 02:50 Hct 42.3 % (42.0-52.0) 10/17/21 02:50 MCV 89.6 fl (80-94) 10/17/21 02:50 MCH 28.8 pg (28.0-34.0) 10/17/21 02:50 MCHC 32.2 g/dL (30.0-36.0) 10/17/21 02:50 RDW 15.2 % (12.1-15.1) H 10/17/21 02:50 Plt Count 210 10^3/cmm (130-400) 10/17/21 02:50 MPV 10.8 fL (7.4-10.4) H 10/17/21 02:50 Neut % (Auto) 63.5 % 10/17/21 02:50 Lymph % (Auto) 24.1 % 10/17/21 02:50 Smith % (Auto) 9.0 % 10/17/21 02:50 Eos % (Auto) 2.1 % 10/17/21 02:50 Baso % (Auto) 0.8 % 10/17/21 02:50 Neut # (Auto) 4.82 10^3/uL (1.8-7.7) 10/17/21 02:50 Lymph # (Auto) 1.8 10^3/uL (0.8-4.8) 10/17/21 02:50 Smith # (Auto) 0.7 10^3/uL (0.2-0.9) 10/17/21 02:50 Eos # (Auto) 0.2 10^3/uL (0.0-0.8) 10/17/21 02:50 Baso # (Auto) 0.1 10^3/uL (0.0-0.1) 10/17/21 02:50 Nucleated RBC % (auto) 0 % 10/17/21 02:50 Nucleated RBCs # 0.0 /100WBC 10/17/21 02:50 Sodium 138 mmol/L (136-145) 10/17/21 02:50 Potassium 4.7 mmol/L (3.5-5.1) 10/17/21 02:50 Chloride 104 mmol/L (98-107) 10/17/21 02:50 Carbon Dioxide 24 mmol/L (22-29) 10/17/21 02:50 Anion Gap 14.7 (5-19) 10/17/21 02:50 BUN 13 mg/dL (8-23) 10/17/21 02:50 Creatinine 0.9 mg/dL (0.7-1.2) 10/17/21 02:50 GFR Calculation Not Reportable 10/17/21 02:50 Glucose 117 mg/dL (65-115) H 10/17/21 02:50 Calculated Osmolality 287 mOsm/kg (285-295) 10/17/21 02:50 Calcium 10.3 mg/dL (8.5-10.5) 10/17/21 02:50 Magnesium 2.0 mg/dL (1.7-2.3) 10/17/21 02:50 Total Bilirubin 0.8 mg/dL (0.15-1.2) 10/17/21 02:50 AST 33 U/L (0-40) 10/17/21 02:50 ALT 25 U/L (0-41) 10/17/21 02:50 Alkaline Phosphatase 88 IU/L (40-130) 10/17/21 02:50 Troponin T Baseline 24 ng/L (0-15) H 10/16/21 00:20 Troponin T 120 Minute 25.56 ng/L (0-15) H 10/16/21 02:20 Delta Troponin T 1.56 ABS# (0-10) 10/16/21 02:20 Troponin T Hi Sens 6Hr 25.86 ng/L (0-15) H 10/16/21 06:12 Troponin T Hi Sens 6Hr Delta 1.86 ng/L (0-12) 10/16/21 06:12 NT-Pro-B Natriuret Pep 199 pg/mL (0-125) H 10/16/21 00:20 Total Protein 6.5 g/dL (6.6-8.7) L 10/17/21 02:50 Albumin 3.8 g/dL (3.5-5.2) 10/17/21 02:50 Globulin 2.7 g/dL (1.3-4.6) 10/17/21 02:50 EKG 1: My Interpretation: The EKG revealed A paced, V sensed rhythm. Diffuse nonspecific ST-T changes. Poor R wave progression. EKG computer-generated impression: Chest X-Ray 10/16/21 00:25 IMPRESSION: No acute findings. A&P Assessment and plan (1) ICD (implantable cardioverter-defibrillator) discharge: Patient has not had any cancer ventricular arrhythmia, since the hospital admission. No more ICD discharges. Currently on amiodarone. May continue on the current medications Status: Acute (2) Cardiomyopathy, nonischemic: Elevation fraction was found to be around 35 to 40% by echocardiogram. Patient is known to have nonischemic cardiomyopathy. At this point, he may not require any further intervention. Consider doing a myocardial perfusion imaging to evaluate for any underlying coronary ischemia, if he has not had one recently, because of the drop in the ejection fraction. Status: Acute (3) Hypomagnesemia: Patient is on magnesium replacement. Currently on the current measures. Status: Acute (4) Ventricular fibrillation, paroxysmal: Since the patient has not had a recurrence of the arrhythmia, renal require any specific intervention at this point. Status: Acute Plan We may monitor the patient on telemetry 1 more day. If he continues remain stable with no recurrence of ventricular arrhythmia, may be discharged home tomorrow. Attestations Medical Necessity Statement*: Possible discharge home in the morning. Consider stress testing-Lexiscan/sestamibi/sestamibi as an outpatient to evaluate the worsening LV systolic function. Coding Level of Care Code Acute Gift Packer for Chg Fwd History Detailed Exam Detailed Medical Decision Making Moderate Complexity Diagnoses ICD (implantable cardioverter-defibrillator) discharge Z45.02 Cardiomyopathy, nonischemic I42.8 Hypomagnesemia E83.42 Ventricular fibrillation, paroxysmal I49.01
--- NOTE | 2021-10-17 10:34 | PC.CHAP ---
Pastoral Care Encounter/Spiritual Assessment Type of Contact [] Declined tag press operator visit [] Patient/Family/Request visit [] Outpatient visit [] Follow-up visit [] Physician referral [] Code/Alert [X] Routine visit [] Staff referral [] Actively dying [] Patient sleeping [] Family support [] [] Out of room [] Palliative care [] [] Receiving care in room [] Pre-surgical visit [] Trauma [] Long length of stay [] ICU visit [X] Other: Pt on phone x 2 attempts to visit Relational/Emotional Strength [] Patient feels connected with others/family/visitors/staff [] Distress [] Loneliness/isolation [] Abandonment Spirituality of Patient [] Person of Oliva [] Attends Sikh of their Oliva [] Believes in Prayer [] Reads Bible or Anglican materials [] There are Spiritual issues to be addressed Dehydrogenation Operator Head Interventions [] Prayer [] Active listening [] Non-anxious presence [] Spiritual/emotional support [] Crisis/trauma care [] Spiritual counseling [] Bereavement support [] Provided bereavement packet [] Provided Bible/devotional materials [] Provided toy/stuffed animal, coloring book to patient or family member [] Provided Communion [] Anointing/[place] [] Salvation [] Completed spiritual assessment [] Other: Impact on Illness or Injury [] Angry [] Fearful [] Anxious [] Often cries [] Exhaustion [] Unable to work [] Unable to attend church [] Unable to walk/stand [] Unable to read [] Unable to drive [] Unable to eat/drink [] Unable to sleep [] Unable to be with family [] Patient intubated [] Other: Summary Time spent with patient
--- NOTE | 2021-10-17 11:20 | PM.PN ---
Subjective Subjective: No overnight events however patient has been very anxious and not been able to sleep We will give him Ativan and Ambien Plan to continue his amiodarone 3 times daily regimen In case of sustained V. tach or recurrence of pain he will need transfer to [facility] for EP evaluation Spoke with Dr. Car Gonzales/I&O/Wt Last Vital Signs Temp 98.2 F 10/17/21 03:02 Pulse 80 10/17/21 09:08 Resp 18 10/17/21 03:02 BP 154/98 10/17/21 03:02 Pulse Ox 94 10/17/21 09:08 10/16/21 10/17/21 10/17/21 22:59 06:59 14:59 Intake Total 60 / 60 60 / 120 340 / 340 Output Total 800 / 800 400 / 1200 550 / 550 Balance -740 / -740 -340 / -1080 -210 / -210 Weight last 48 hrs Weight 97.522 kg Weight 97.522 kg Physical Exam Narrative: Patient laying flat Hemodynamically stable Watching television Doing well on room air He is not on oxygen Abdomen is soft No signs of edema Pleasant Cooperative Nonfocal neuro exam Data : 10/17/21 02:50 10/17/21 02:50 A&P Assessment and plan (1) ICD (implantable cardioverter-defibrillator) discharge: Status: Acute (2) Cardiomyopathy, nonischemic: Status: Acute (3) Ventricular fibrillation, paroxysmal: Status: Acute Plan AICD discharge for V. fib Mag and potassium normal Troponin unremarkable Appreciate cardiology recommendations Currently on amnio No overnight events Hemodynamically stable Patient is suffering from anxiety related to his recent AICD discharge, he is not able to sleep, would use Ativan and Ambien on as needed basis In case of any further decompensation he will need higher level of care EP evaluation Full code Cardiac diet DVT prophylaxis on board Attestations Medical Necessity Statement*: Continue hospitalization Time Spent in Patient Care: 20mins Coding Level of Care Code Acute Director Television for Chg Fwd Diagnoses ICD (implantable cardioverter-defibrillator) discharge Z45.02 Cardiomyopathy, nonischemic I42.8 Ventricular fibrillation, paroxysmal I49.01
[2021-10-17] MEDS: ALPRAZolam 0.5 mg Tablet 0.25 MG PO (11:35)
[2021-10-17] MEDS: magnesium oxide 400 mg tablet PO (16:23)
[2021-10-17] MEDS: zolpidem 5 mg Tablet PO (19:39)
--- NOTE | 2021-10-17 22:58 | PC.NURSE ---
Addendum entered by Constance Castellon RN 10/17/21 23:02: Patient refused Tylenol and pain medication at this time. Will reassess. Original Note: Patient c/o right shoulder pain and difficulty lifting right shoulder. Patient states I fell on the ice a year ago and it hurts me off and on since then.
--- NOTE | 2021-10-18 02:52 | PC.NURSE ---
Patient states You're going to have to write down whatever the name of that sleeping pill was. That's the best sleep I've gotten in years.
[2021-10-18 03:17] VITALS: PULSE 70
[2021-10-18 04:00] VITALS: BP 143/90; PULSE 70; RESP 18; TEMP 36.6; O2SAT 94
[2021-10-18 06:47] LABS: Blood Urea Nitrogen 14 mg/dL (8-23); Calcium 10.4 mg/dL (8.5-10.5); Carbon Dioxide 26 mmol/L (22-29); Chloride 104 mmol/L (98-107); Creatinine Clr Calc Pharmacy 75.9081; Glucose 129 mg/dL (65-115); Osmolality Calculated 290 mOsm/kg (285-295); Sodium 139 mmol/L (136-145)
[2021-10-18 07:50] VITALS: BP 156/87; PULSE 70; RESP 17; TEMP 36.4; O2SAT 96
[2021-10-18] MEDS: hyDRALAzine 50 mg Tablet PO (08:11)
[2021-10-18] MEDS: amiodarone 200 mg Tablet 400 MG PO (08:11)
[2021-10-18] MEDS: apixaban 5 mg Tablet 2.5 MG PO (08:11)
[2021-10-18] MEDS: pantoprazole DR 40 mg Tablet PO (08:12)
[2021-10-18] MEDS: magnesium oxide 400 mg tablet PO (08:12)
--- NOTE | 2021-10-18 08:45 | PM.PN ---
Subjective Subjective: Night events patient is stating that he was able to sleep peacefully last night, He did well with use of Ambien and Ativan as needed use Was also started on magnesium p.o. tablets Disposition plan as per cardiology Vitals/I&O/Wt Last Vital Signs Temp 97.6 F 10/18/21 07:50 Pulse 70 10/18/21 07:50 Resp 17 10/18/21 07:50 BP 156/87 10/18/21 07:50 Pulse Ox 96 10/18/21 07:50 10/17/21 10/18/21 10/18/21 22:59 06:59 14:59 Intake Total 360 / 1178 500 / 1678 240 / 240 Output Total 900 / 1450 1125 / 2575 Balance -540 / -272 -625 / -897 240 / 240 Weight last 48 hrs Weight 97.522 kg Physical Exam Narrative: Patient lying comfortably in his bed Saturating well on room air S1, S2 Nonfocal neuro exam Euvolemic No stridor or wheezing Data : 10/17/21 02:50 10/18/21 05:00 A&P Assessment and plan (1) ICD (implantable cardioverter-defibrillator) discharge: Status: Acute (2) Cardiomyopathy, nonischemic: Status: Acute (3) Ventricular fibrillation, paroxysmal: Status: Acute Plan Patient is doing better on amiodarone 3 times a day regimen, Dr. Yoon to see the patient today Disposition plan as per cardiology, no AICD firing during his hospitalization, patient is agreeable to go see bottling line operator at [facility] We will touch base with cardiology Continue magnesium tablets Potassium is 4, check magnesium level Afebrile Full code DVT prophylaxis on board Attestations Medical Necessity Statement*: Disposition/discharge in next 24 hours Time Spent in Patient Care: 20min Coding Level of Care Code Acute Tax Assessor for Chg Fwd Diagnoses ICD (implantable cardioverter-defibrillator) discharge Z45.02 Cardiomyopathy, nonischemic I42.8 Ventricular fibrillation, paroxysmal I49.01
--- NOTE | 2021-10-18 10:39 | PC.CHAP ---
Pastoral Care Encounter/Spiritual Assessment Type of Contact [] Declined nursery nurse visit [] Patient/Family/Request visit [] Outpatient visit [X] Follow-up visit [] Physician referral [] Code/Alert [] Routine visit [] Staff referral [] Actively dying [] Patient sleeping [] Family support [] [] Out of room [] Palliative care [] [] Receiving care in room [] Pre-surgical visit [] Trauma [] Long length of stay [] ICU visit [] Other: Relational/Emotional Strength [X] Patient feels connected with others/family/visitors/staff [] Distress [] Loneliness/isolation [] Abandonment Spirituality of Patient [X] Person of Oliva [] Attends Buddhist of their [place] [] Believes in Prayer [] Reads Bible or Rastafari materials [] There are Spiritual issues to be addressed Practice Management Consultant Interventions [] Prayer [X] Active listening [X] Non-anxious presence [] Spiritual/emotional support [] Crisis/trauma care [] Spiritual counseling [] Bereavement support [] Provided bereavement packet [] Provided Bible/devotional materials [] Provided toy/stuffed animal, coloring book to patient or family member [] Provided Communion [] Anointing/[place] [] Salvation [X] Completed spiritual assessment [] Other: Impact on Illness or Injury [] Angry [] Fearful [] Anxious [] Often cries [] Exhaustion [] Unable to work [] Unable to attend church [] Unable to walk/stand [] Unable to read [] Unable to drive [] Unable to eat/drink [] Unable to sleep [] Unable to be with family [] Patient intubated [] Other: Summary: Visit cut short by telephone call from pt's spouse, but the brief visit involved pt describing the support he has rec'd from local 's organizations. Specifically, the nursery nurse from the [employer] [facility] in [place] has called him and offered to drive over for a visit. Pt was in good spirits and very open to speaking about his spirituality. Time spent with patient: 5 mins
[2021-10-18 12:00] VITALS: BP 124/76; PULSE 72; RESP 14; TEMP 36.3; O2SAT 94
--- NOTE | 2021-10-18 12:49 | P.PN_ITS ---
Subjective Subjective: The patient is feeling okay with no recurrence of ventricular arrhythmia or ICD discharges. He has been ambulating on telemetry. He is mainly complaining of being nervous and has difficulty in sleeping. No chest pain. No unusual shortness of breath. No other specific complaints. Medications: Medication Review Details: Current Medications Acetaminophen (Acetaminophen 325 Mg Tablet) 650 mg PO Q6H PRN PRN Reason: Mild/Mod Pain Or Temp >/= 101 Amiodarone HCl (Amiodarone 200 Mg Tablet) 400 mg PO TID [facility] Last Admin: 10/18/21 08:11 Dose: 400 mg Documented by: Apixaban (Apixaban 5 Mg Tablet) 2.5 mg PO BID@0900,2100 [facility] Last Admin: 10/18/21 08:11 Dose: 2.5 mg Documented by: Hydralazine HCl (Hydralazine 50 Mg Tablet) 50 mg PO BID@0800,2000 [facility] Last Admin: 10/18/21 08:11 Dose: 50 mg Documented by: Lorazepam (Lorazepam 2 Mg/Ml Inj 1 Ml) 0.5 mg IVP Q4H PRN PRN Reason: ANXIETY Magnesium Oxide (Magnesium Oxide 400 Mg Tablet) 400 mg PO BID [facility] Last Admin: 10/18/21 08:12 Dose: 400 mg Documented by: Ondansetron HCl (Ondansetron 2 Mg/Ml Sdv 2 Ml) 4 mg IVP Q8H PRN PRN Reason: vomiting, or N/V if npo Pantoprazole Sodium (Pantoprazole Dr 40 Mg Tablet) 40 mg PO DAILY [facility] Last Admin: 10/18/21 08:12 Dose: 40 mg Documented by: Zolpidem Tartrate (Zolpidem 5 Mg Tablet) 5 mg PO BEDTIME [facility] Last Admin: 10/17/21 19:39 Dose: 5 mg Documented by: Vitals/I&O/Wt Last Vital Signs Temp 97.6 F 10/18/21 07:50 Pulse 70 10/18/21 07:50 Resp 17 10/18/21 07:50 BP 156/87 10/18/21 07:50 Pulse Ox 96 10/18/21 07:50 10/17/21 10/18/21 10/18/21 22:59 06:59 14:59 Intake Total 360 / 1178 500 / 1678 240 / 240 Output Total 900 / 1450 1125 / 2575 Balance -540 / -272 -625 / -897 240 / 240 Weight last 48 hrs Weight 215 lb Physical Exam Narrative: GENERAL: The patient is alert and oriented times three. Not in any acute distress. Appears to be somewhat nervous HEENT: No significant pallor, icterus or lymphadenopathy.Oral cavity: There are no mucous membrane lesions. NECK: Trachea appears to be central. No masses noted. No JVD or thyromegaly appreciated. RESPIRATORY: Chest is symmetrical. No intercostals muscle retraction or any accessory muscle activation. There is no chest wall tenderness. Breath sounds are heard bilaterally. No rales or rhonchi heard. No evidence of any consolidation. BREASTS: Deferred. HEART: The heart sounds are normal. No S3 or S4. No significant murmurs. No pericardial rub ABDOMEN: No vessel pulsations or distention. No tenderness. No organomegaly appreciated. Bowel sounds are normally heard. : Deferred. RECTAL: Deferred. LYMPHATIC: No lymphadenopathy noted in the neck or groin. EXTREMITIES: No edema or cyanosis. No clubbing. MUSCULOSKELETAL: No acute joint deformities or swelling SKIN: There are no significant rashes or ecchymosis NEUROPSYCHIATRIC: The patient is alert and oriented x3. Appears to be in a good mood. No tremors or rigidity noted. Data : 10/17/21 02:50 10/18/21 05:00 Other Labs: Laboratory Last Values WBC 7.6 10^3/uL (4.0-10.0) 10/17/21 02:50 RBC 4.72 10^6/uL (4.1-5.3) 10/17/21 02:50 Hgb 13.6 g/dL (11.7-16.6) 10/17/21 02:50 Hct 42.3 % (42.0-52.0) 10/17/21 02:50 MCV 89.6 fl (80-94) 10/17/21 02:50 MCH 28.8 pg (28.0-34.0) 10/17/21 02:50 MCHC 32.2 g/dL (30.0-36.0) 10/17/21 02:50 RDW 15.2 % (12.1-15.1) H 10/17/21 02:50 Plt Count 210 10^3/cmm (130-400) 10/17/21 02:50 MPV 10.8 fL (7.4-10.4) H 10/17/21 02:50 Neut % (Auto) 63.5 % 10/17/21 02:50 Lymph % (Auto) 24.1 % 10/17/21 02:50 Travis % (Auto) 9.0 % 10/17/21 02:50 Eos % (Auto) 2.1 % 10/17/21 02:50 Baso % (Auto) 0.8 % 10/17/21 02:50 Neut # (Auto) 4.82 10^3/uL (1.8-7.7) 10/17/21 02:50 Lymph # (Auto) 1.8 10^3/uL (0.8-4.8) 10/17/21 02:50 Travis # (Auto) 0.7 10^3/uL (0.2-0.9) 10/17/21 02:50 Eos # (Auto) 0.2 10^3/uL (0.0-0.8) 10/17/21 02:50 Baso # (Auto) 0.1 10^3/uL (0.0-0.1) 10/17/21 02:50 Nucleated RBC % (auto) 0 % 10/17/21 02:50 Nucleated RBCs # 0.0 /100WBC 10/17/21 02:50 Sodium 139 mmol/L (136-145) 10/18/21 05:00 Potassium 4.0 mmol/L (3.5-5.1) 10/18/21 05:00 Chloride 104 mmol/L (98-107) 10/18/21 05:00 Carbon Dioxide 26 mmol/L (22-29) 10/18/21 05:00 Anion Gap 13.0 (5-19) 10/18/21 05:00 BUN 14 mg/dL (8-23) 10/18/21 05:00 Creatinine 1.0 mg/dL (0.7-1.2) 10/18/21 05:00 GFR Calculation Not Reportable 10/18/21 05:00 Glucose 129 mg/dL (65-115) H 10/18/21 05:00 Calculated Osmolality 290 mOsm/kg (285-295) 10/18/21 05:00 Calcium 10.4 mg/dL (8.5-10.5) 10/18/21 05:00 Magnesium 2.0 mg/dL (1.7-2.3) 10/17/21 02:50 Total Bilirubin 0.8 mg/dL (0.15-1.2) 10/17/21 02:50 AST 33 U/L (0-40) 10/17/21 02:50 ALT 25 U/L (0-41) 10/17/21 02:50 Alkaline Phosphatase 88 IU/L (40-130) 10/17/21 02:50 Troponin T Baseline 24 ng/L (0-15) H 10/16/21 00:20 Troponin T 120 Minute 25.56 ng/L (0-15) H 10/16/21 02:20 Delta Troponin T 1.56 ABS# (0-10) 10/16/21 02:20 Troponin T Hi Sens 6Hr 25.86 ng/L (0-15) H 10/16/21 06:12 Troponin T Hi Sens 6Hr Delta 1.86 ng/L (0-12) 10/16/21 06:12 NT-Pro-B Natriuret Pep 199 pg/mL (0-125) H 10/16/21 00:20 Total Protein 6.5 g/dL (6.6-8.7) L 10/17/21 02:50 Albumin 3.8 g/dL (3.5-5.2) 10/17/21 02:50 Globulin 2.7 g/dL (1.3-4.6) 10/17/21 02:50 A&P Assessment and plan (1) ICD (implantable cardioverter-defibrillator) discharge: May continue on the amiodarone, 400 mg p.o. 3 times daily for 5 days followed by twice daily for 10 days followed by once a day. May continue on other current medications as the days Status: Acute (2) Cardiomyopathy, nonischemic: Since there is no evidence of decompensation, may continue on the current medications. Status: Acute (3) Hypomagnesemia: Patient is on the magnesium supplement. Status: Acute Plan History of hyperkalemia -currently is off the potassium patient may continue on the amiodarone- dose need to be tapered down. May take the 400 mg 3 times daily for 5 days followed by 400 mg twice daily for 10 days followed by 400 mg daily Appointment at the [facility] to be seen by the nurse practitioner in [address] Price in 1 month Myocardial perfusion imaging as an outpatient-Lexiscan/sestamibi/sestamibi stress test Attestations Medical Necessity Statement*: possible discharge home today Coding Level of Care Code Acute Polymerization Supervisor for Chrisg Fwd History Detailed Exam Detailed Medical Decision Making Moderate Complexity Diagnoses ICD (implantable cardioverter-defibrillator) discharge Z45.02 Cardiomyopathy, nonischemic I42.8 Hypomagnesemia E83.42
--- NOTE | 2021-10-18 13:31 | PM.DCS ---
Discharge Providers Date of Admission: 10/16/21 03:24 Date of Discharge: October 18, 2021 Attending Provider at Admission: Liss Christian Attending Provider at Discharge: Desmond Ram MD Primary Care Provider: Priscilla Long MD Diagnoses at Discharge Discharge Diagnosis (1) ICD (implantable cardioverter-defibrillator) discharge: Status: Acute (2) Cardiomyopathy, nonischemic: Status: Acute (3) COVID-19: Status: Acute (4) Hypomagnesemia: Status: Acute Reason for Visit Reason for Visit: cp Hospital Course Hospital Course Patient was admitted on 09/2017 for multiple shocks delivered by his defibrillator, Detailed note by Dr. Hunt previous coronary angiography revealed mild nonobstructive coronary disease with an ejection fraction of 45%.? He was placed on sotalol and a defibrillator was placed.? He did well for several years.? After he moved here I saw him once or twice and then turned him over to Dr. Price.? His other medical problems include chronic kidney disease, hypertension, gout, dyslipidemia, nonischemic cardiomyopathy and he did have Covid treated with a monoclonal antibody.? His ejection fraction was about 45% when he first arrived here.? It has decreased somewhat. He has done well for the last couple years and then 2 or 3 months ago began to have episodes of ventricular tachycardia requiring antitachycardia pacing and ventricular fibrillation.? On August 11 he was shocked by the device, came to the hospital and his sotalol was increased from 80 mg twice a day to 120 mg in the morning and 80 mg in the evening.? At that time an echo showed an ejection fraction of 35 to 40% and he was sent home. On the of this month, now just 2 days ago the device went off again and he was switched to amiodarone 400 mg twice a day.? I do not think he got a sotalol free period.? The device went off again this morning and he arrived at the emergency room.? He has had several episodes of antitachycardia pacing and defibrillator shocks.? His EKG shows sinus rhythm with nonspecific changes.? His troponin is 26 and there has been no interim change or no delta change. Hospital course Patient was started on amiodarone 400 mg 3 times a day, he remained stable during his hospitalization, no more episodes of AICD discharge noted, I started him on magnesium daily regimen, potassium was above 4, he remains hypertensive for which she requires lisinopril, amlodipine and hydralazine. Dr. Yoon recommended amiodarone 400 mg 3 times a day for 5 days and then twice a day and then daily. He has recommended outpatient follow-up with [facility] and possible another stress test. Patient was counseled on electrophysiology study and why is it indicated at this point. If needed this will be arranged by [facility] as per my discussion with Dr. Yoon. For his anxiety and insomnia we will give Ambien at the time of discharge. Physical Exam Narrative: Patient lying comfortably in his bed Saturating well on room air S1, S2 Nonfocal neuro exam Euvolemic No stridor or wheezing Discharge Data Studies Completed and Pending Completed Studies During Hospitalization Category Date Time Status XR chest 1V portable [id number] Urgent Exams 10/16/21 00:25 Completed Pending at discharge Category Date Time Status Magnesium AM LABS Lab 10/19/21 04:00 Ordered Radiology Impressions Chest X-Ray 10/16/21 00:25 IMPRESSION: No acute findings. Laboratory Results WBC 7.6 10^3/uL (4.0-10.0) 10/17/21 02:50 RBC 4.72 10^6/uL (4.1-5.3) 10/17/21 02:50 Hgb 13.6 g/dL (11.7-16.6) 10/17/21 02:50 Hct 42.3 % (42.0-52.0) 10/17/21 02:50 MCV 89.6 fl (80-94) 10/17/21 02:50 MCH 28.8 pg (28.0-34.0) 10/17/21 02:50 MCHC 32.2 g/dL (30.0-36.0) 10/17/21 02:50 RDW 15.2 % (12.1-15.1) H 10/17/21 02:50 Plt Count 210 10^3/cmm (130-400) 10/17/21 02:50 MPV 10.8 fL (7.4-10.4) H 10/17/21 02:50 Neut % (Auto) 63.5 % 10/17/21 02:50 Lymph % (Auto) 24.1 % 10/17/21 02:50 Alfalfa % (Auto) 9.0 % 10/17/21 02:50 Eos % (Auto) 2.1 % 10/17/21 02:50 Baso % (Auto) 0.8 % 10/17/21 02:50 Neut # (Auto) 4.82 10^3/uL (1.8-7.7) 10/17/21 02:50 Lymph # (Auto) 1.8 10^3/uL (0.8-4.8) 10/17/21 02:50 Alfalfa # (Auto) 0.7 10^3/uL (0.2-0.9) 10/17/21 02:50 Eos # (Auto) 0.2 10^3/uL (0.0-0.8) 10/17/21 02:50 Baso # (Auto) 0.1 10^3/uL (0.0-0.1) 10/17/21 02:50 Nucleated RBC % (auto) 0 % 10/17/21 02:50 Nucleated RBCs # 0.0 /100WBC 10/17/21 02:50 Sodium 139 mmol/L (136-145) 10/18/21 05:00 Potassium 4.0 mmol/L (3.5-5.1) 10/18/21 05:00 Chloride 104 mmol/L (98-107) 10/18/21 05:00 Carbon Dioxide 26 mmol/L (22-29) 10/18/21 05:00 Anion Gap 13.0 (5-19) 10/18/21 05:00 BUN 14 mg/dL (8-23) 10/18/21 05:00 Creatinine 1.0 mg/dL (0.7-1.2) 10/18/21 05:00 GFR Calculation Not Reportable 10/18/21 05:00 Glucose 129 mg/dL (65-115) H 10/18/21 05:00 Calculated Osmolality 290 mOsm/kg (285-295) 10/18/21 05:00 Calcium 10.4 mg/dL (8.5-10.5) 10/18/21 05:00 Magnesium 2.0 mg/dL (1.7-2.3) 10/17/21 02:50 Total Bilirubin 0.8 mg/dL (0.15-1.2) 10/17/21 02:50 AST 33 U/L (0-40) 10/17/21 02:50 ALT 25 U/L (0-41) 10/17/21 02:50 Alkaline Phosphatase 88 IU/L (40-130) 10/17/21 02:50 Troponin T Baseline 24 ng/L (0-15) H 10/16/21 00:20 Troponin T 120 Minute 25.56 ng/L (0-15) H 10/16/21 02:20 Delta Troponin T 1.56 ABS# (0-10) 10/16/21 02:20 Troponin T Hi Sens 6Hr 25.86 ng/L (0-15) H 10/16/21 06:12 Troponin T Hi Sens 6Hr Delta 1.86 ng/L (0-12) 10/16/21 06:12 NT-Pro-B Natriuret Pep 199 pg/mL (0-125) H 10/16/21 00:20 Total Protein 6.5 g/dL (6.6-8.7) L 10/17/21 02:50 Albumin 3.8 g/dL (3.5-5.2) 10/17/21 02:50 Globulin 2.7 g/dL (1.3-4.6) 10/17/21 02:50 Vitals Last Vital Signs Temp 97.6 F 10/18/21 07:50 Pulse 70 10/18/21 07:50 Resp 17 10/18/21 07:50 BP 156/87 10/18/21 07:50 Pulse Ox 96 10/18/21 07:50 Discharge Plan Discharge Patient Disposition: Home Condition: Stable Prescriptions: New amiodarone 400 mg tablet 400 mg PO DIRECTED 30 Days Qty: 90 2RF magnesium 200 mg tablet 200 mg PO DAILY Qty: 60 0RF Ambien 5 mg tablet 5 mg PO BEDTIME PRN (Reason: insomnia) Qty: 10 0RF Continued simvastatin 80 mg tablet 40 mg PO DAILY@1999 0RF hydralazine 50 mg tablet 50 mg PO BID@0800,1999 0RF allopurinol 100 mg tablet 100 mg PO BID 0RF aspirin [Enteric Coated Aspirin] 81 mg tablet,delayed release (DR/EC) 81 mg PO DAILY@0800 0RF amlodipine 5 mg tablet 5 mg PO DAILY@0800 Qty: 90 3RF tamsulosin 0.4 mg capsule 0.4 mg PO DAILY@2000 0RF apixaban 5 mg Tablet 2.5 mg PO BID 0RF Glucosamine Chondroitin 550-30-1 mg Capsule 1 cap PO BID 0RF lisinopril 40 mg tablet 20 mg PO DAILY@0800 Qty: 30 0RF Discontinued amiodarone 400 mg tablet 400 mg PO BID 30 Days Qty: 60 0RF Discharge Orders: Discharge Order (Routine); Ordered 10/18/21 Ordered By: Desmond Ram Referrals: Tigre Price M.D [Physician] - 1 month Priscilla Long MD [Primary Care Provider] - Janessa Urrutia FNP [Nurse Practitioner] - 1 week Discharge Diet: Cardiac Discharge Activity: Limit activity as instructed Patient Instructions: Driving Restrictions (ED), Opioid Safety Discharge Attestations Time Spent in Discharge Care*: less than 30 min Quality Metrics Clinical Quality Measures [ No reported AMI, CVA or VTE this stay] Coding Level of Care Code Acute Chg FW DC note Diagnoses ICD (implantable cardioverter-defibrillator) discharge Z45.02 Cardiomyopathy, nonischemic I42.8 COVID-19 U07.1 Hypomagnesemia E83.42
[2021-10-18 13:54] VITALS: BP 137/83; PULSE 70; RESP 16; TEMP 36.5; O2SAT 95
== END 2021-10-18 14:30 | disposition home or self-care (01) ==
LOC: ER 03:24 → ER IP 03:33 → CSU 09:47
PROVIDERS: Physician Assistant; Admitting Provider Hospitalist; Emergency Provider Emergency Medicine; PCP Family Medicine; Visit Provider Internal Medicine
DX: U07.1 COVID-19 (principal); Z45.02 Encounter for adjustment and management of automatic implantable cardiac defibrillator; I42.8 Other cardiomyopathies; E83.42 Hypomagnesemia; I25.10 Atherosclerotic heart disease of native coronary artery without angina pectoris; Z79.82 Long term (current) use of aspirin; Z85.038 Personal history of other malignant neoplasm of large intestine; E78.5 Hyperlipidemia, unspecified; Z90.49 Acquired absence of other specified parts of digestive tract; Z87.891 Personal history of nicotine dependence
CPT/HCPCS: 36415; 71045; 80048; 80053; 83735; 83880; 84484; 85025; 93005; 94664; 99285; G0378

== ENCOUNTER 2021-10-22 18:34 | Inpatient (IN) | payer OTHER, MEDICARE, SELFPAY ==
[2021-10-22 18:40] VITALS: BP 138/82; PULSE 88; RESP 16; TEMP 36.6; O2SAT 96; BMI 30.9
--- NOTE | 2021-10-22 18:46 | XRR_ITS ---
PROCEDURE INFORMATION: Exam: XR Chest Exam date and time: 10/22/2021 6:46 PM Age: 76 years old Clinical indication: Sternal or substernal pain; Additional info: Cp TECHNIQUE: Imaging protocol: XR of the chest. Views: 1 view. COMPARISON: CR (CHEST, ) 10/16/2021 1:20 AM FINDINGS: Tubes, catheters and devices: There is transvenous AICD in place with leads in appropriate position. Lungs: Visualized portions of the lungs are clear. Pleural spaces: Unremarkable. No pleural effusion. No pneumothorax. Heart/Mediastinum: Heart is within normal limits of size. Bones/joints: Unremarkable. XR/XR chest 1V portable [id number] IMPRESSION: No acute infiltrate.
--- NOTE | 2021-10-22 18:46 | ECG_ITS ---
[facility] Test Date: 2021-10-22 Pat Name: Frederic Chan Department: Room: Gender: Male H[employer] R Tech: : [id number] Requested By: Nazario Wilder Order Number: [id number] Felicita MD: Enma Blandon M.D. Measurements Intervals [place] Rate: 72 P: 80 VT: 221 QRS: -55 QRSD: 109 T: 31 QT: 387 QTc: 426 Interpretive Statements SINUS RHYTHM WITH FIRST DEGREE AV BLOCK LEFT ANTERIOR FASCICULAR BLOCK [QRS AXIS <= -45, QR IN I, RS IN II] POSSIBLE ANTERIOR MYOCARDIAL INFARCTION , OF INDETERMINATE AGE [30 ms Q WAVE IN V3/V4, OR R < 0.2 mV IN V4] Compared to ECG 10/16/2021 07:24:56 First degree AV block now present Left anterior fascicular block now present Myocardial infarct finding now present Atrial-paced complex(es) or rhythm no longer present Left-axis deviation no longer present ST (T wave) deviation no longer present Electronically Signed On 10-24-2021 8:38:41 JACQUARD LOOM HEDDLES TIER by Enma Blandon M.D. [email or web address]
--- NOTE | 2021-10-22 18:57 | W.ED.ARRPALP ---
HPI - Arrhythmia/Palpitations General: Chief Complaint: Arrhythmia/Palpitations Stated Complaint: Pace Maker has gone off twice Time Seen by Provider: 10/22/21 18:57 History of Present Illness: Mr Chan is a 76-year-old gentleman with significant past medical history of nonischemic cardiomyopathy and recent significant history for medication changes with multiple ICD discharges who presents emergency department due to ICD discharges. He was previously hospitalized after medication change from sotalol to amiodarone. He has been compliant with his amiodarone 400 mg 3 times daily and had been doing okay until today. He endorses at rest having sudden onset of severe lightheadedness and uncomfortable feeling in his chest prior to being shocked. He then had another shock while getting over the to come to the hospital. He denies known specific provoking factors or any other significant changes in health, denies infectious symptoms. Intensity feeling when present is severe. No other specific exacerbating or relieving factors identified. Review of Systems General: Reports: 10 or more systems reviewed and unremarkable except in HPI and below PFSH ED PFSH: Medical History Cardiomyopathy, nonischemic Chronic kidney disease (CKD) COVID-19 Essential (primary) hypertension Gout History of colon cancer Hyperlipemia Hypomagnesemia ICD (implantable cardioverter-defibrillator) discharge ICD (implantable cardioverter-defibrillator) in place Nonischemic cardiomyopathy Ventricular fibrillation, paroxysmal Ventricular tachycardia Surgical History History of colon resection History of ear surgery Family History Father Cancer Dementia Social History Smoking and tobacco status: former smoker Alcohol intake: current Alcohol intake frequency: holidays/special occasions only Marital status: Current occupational status: retired Physical Exam Const: COMMON NORMALS: alert GENERAL APPEARANCE: cooperative and well developed HENMT: COMMON NORMALS: normocephalic and atraumatic HEAD & SCALP: normocephalic and atraumatic Eye: COMMON NORMALS: conjunctivae normal CONJUNCTIVA: Yes conjunctivae normal SCLERA: sclerae normal Neck/C-Spine: COMMON NORMALS: supple GENERAL: Yes trachea midline Resp: COMMON NORMALS: normal respiratory effort and clear to auscultation bilaterally EFFORT & INSPECTION: Yes able to speak in complete sentences AUSCULTATION: clear to auscultation bilaterally Cardio: COMMON NORMALS: regular rate and regular rhythm RATE: regular rate RHYTHM: regular rhythm GI: COMMON NORMALS: Soft to palpation PALPATION: Yes Soft to palpation and No Tenderness to palpation present (GI) PERCUSSION: normal to percussion Extremity: GENERAL: Yes normal exam except as noted and No edema Neuro: COMMON NORMALS: moves all extremities SENSORIUM/ORIENTATION: Yes alert and No Orientation impaired Psych: COMMON NORMALS: mental status grossly normal and Normal thought process present THOUGHT PROCESS: Normal thought process present Course ED course: - Patient was seen and evaluated by me at bedside - Patient placed on cardiac monitors, IV access obtained - Initial evaluation notable for exam as above - Labs notable for no acute lab abnormality to explain her ICD discharges. - Imaging notable for negative chest x-ray - Upon serial reexamination after treatment the patient was similar - Based on patient history, evaluation, labs, and imaging as interpreted the most likely cause of the patient's condition is ICD discharge. Per verbal report on ICD the patient did have ICD discharge as reported. Treatment was for VT. - Discussed case with cardiology on-call. Plan to admit for further evaluation with possible ischemic evaluation. Continue patient's amiodarone, nighttime dose ordered. - The results of ED evaluation were discussed with the patient including plan for admission due to requirement for level of care not available if discharged to prevent significant worsening/deterioration. -Hospitalist service contacted and agreed patient. - Patient was admitted without further deterioration or significant events. Note: Click bubbles or prepopulated velasco in note writing are used for assistance with data collection and billing and are inherently more limited than narrative and other text portions of this note. Please use narrative for additional clinical history and defer to narrative/free test for any case of contradictory information. If information appears in only free text or click bubble it should be considered present or absent as reported. Please contact note sign writer letterer or painter for clarifications of clinical information or contradictory information. MDM is a brief summary, contradictory or erroneous seeming information should be clarified and full note should be reviewed. Vital Signs: Vital signs: Vital Signs Temperature 97.6 F 10/25/21 15:28 Pulse Rate 70 10/25/21 15:28 Respiratory Rate 16 10/25/21 15:28 Blood Pressure 120/80 10/25/21 15:28 Pulse Oximetry 97 10/25/21 15:28 MDM - Arrhythmia/Palpitations Medical Decision Making 76-year-old gentleman presenting as returning ED visit for ICD discharge. Multiple discharges over the past few weeks. No obvious trigger identified in the emergency department. Admitted for further evaluation including ischemic evaluation after discussion with cardiology. Medical Records I reviewed the patient's medical records. Lab Data I reviewed the patient's lab results. : 10/25/21 02:36 10/25/21 02:36 Radiology Impressions Chest X-Ray 10/22/21 18:46 IMPRESSION: No acute infiltrate. Laboratory Results WBC 8.2 10^3/uL (4.0-10.0) 10/22/21 19:31 RBC 4.89 10^6/uL (4.1-5.3) 10/22/21 19:31 Hgb 13.9 g/dL (11.7-16.6) 10/22/21 19:31 Hct 43.7 % (42.0-52.0) 10/22/21 19:31 MCV 89.4 fl (80-94) 10/22/21 19:31 MCH 28.4 pg (28.0-34.0) 10/22/21 19:31 MCHC 31.8 g/dL (30.0-36.0) 10/22/21 19:31 RDW 15.4 % (12.1-15.1) H 10/22/21 19:31 Plt Count 206 10^3/cmm (130-400) 10/22/21 19:31 MPV 10.0 fL (7.4-10.4) 10/22/21 19:31 Neut % (Auto) 72.6 % 10/22/21 19:31 Lymph % (Auto) 14.2 % 10/22/21 19:31 [place] % (Auto) 10.8 % 10/22/21 19:31 Eos % (Auto) 1.1 % 10/22/21 19:31 Baso % (Auto) 0.7 % 10/22/21 19:31 Neut # (Auto) 5.97 10^3/uL (1.8-7.7) 10/22/21 19:31 Lymph # (Auto) 1.2 10^3/uL (0.8-4.8) 10/22/21 19:31 [place] # (Auto) 0.9 10^3/uL (0.2-0.9) 10/22/21 19:31 Eos # (Auto) 0.1 10^3/uL (0.0-0.8) 10/22/21 19:31 Baso # (Auto) 0.1 10^3/uL (0.0-0.1) 10/22/21 19:31 Nucleated RBC % (auto) 0 % 10/22/21 19:31 Nucleated RBCs # 0.0 /100WBC 10/22/21 19:31 Sodium 138 mmol/L (136-145) 10/23/21 03:29 Potassium 3.8 mmol/L (3.5-5.1) 10/23/21 03:29 Chloride 106 mmol/L (98-107) 10/23/21 03:29 Carbon Dioxide 24 mmol/L (22-29) 10/23/21 03:29 Anion Gap 11.8 (5-19) 10/23/21 03:29 BUN 21 mg/dL (8-23) 10/23/21 03:29 Creatinine 0.9 mg/dL (0.7-1.2) 10/23/21 03:29 GFR Calculation Not Reportable 10/23/21 03:29 Glucose 135 mg/dL (65-115) H 10/23/21 03:29 Calculated Osmolality 291 mOsm/kg (285-295) 10/23/21 03:29 Calcium 9.2 mg/dL (8.5-10.5) 10/23/21 03:29 Ionized Calcium Sukhdev 1.3 mmol/L (1.1-1.4) 10/22/21 23:19 Magnesium 2.3 mg/dL (1.7-2.3) 10/22/21 19:31 Total Bilirubin 0.8 mg/dL (0.15-1.2) 10/23/21 03:29 AST 21 U/L (0-40) 10/23/21 03:29 ALT 20 U/L (0-41) 10/23/21 03:29 Alkaline Phosphatase 82 IU/L (40-130) 10/23/21 03:29 Troponin T Baseline 32 ng/L (0-15) H 10/22/21 19:31 Troponin T 120 Minute 37.75 ng/L (0-15) H 10/22/21 21:24 Delta Troponin T 5.75 ABS# (0-10) 10/22/21 21:24 Troponin T Hi Sens 6Hr 34.00 ng/L (0-15) H 10/23/21 03:29 Troponin T Hi Sens 6Hr Delta 2.00 ng/L (0-12) 10/23/21 03:29 NT-Pro-B Natriuret Pep 120 pg/mL (0-125) 10/22/21 19:31 Total Protein 6.2 g/dL (6.6-8.7) L 10/23/21 03:29 Albumin 3.7 g/dL (3.5-5.2) 10/23/21 03:29 Globulin 2.5 g/dL (1.3-4.6) 10/23/21 03:29 Triglycerides 101 mg/dL (0-150) 10/23/21 03:29 Cholesterol 127 mg/dL (0-200) 10/23/21 03:29 LDL Cholesterol, Calc 65 mg/dL (50-129) 10/23/21 03:29 HDL Cholesterol 42 mg/dL (60-100) L 10/23/21 03:29 LDL/HDL Ratio 1.55 RATIO (0.00-3.22) 10/23/21 03:29 Cholesterol/HDL Ratio 3.02 mg/dL (1.0-5.00) 10/23/21 03:29 Angiotensin Convert Enz 5 U/L (9-67) L 10/22/21 19:31 25-OH Vitamin D Total 19 ng/mL (30-100) L 10/22/21 19:31 TSH 5.25 uIU/mL (0.27-4.20) H 10/22/21 19:31 Free T4 1.34 ng/dL (0.82-1.77) 10/22/21 19:31 PTH Intact 77.6 pg/mL (15-65) H 10/22/21 19:31 Calcium (PTH Intact) 11.2 mg/dL (8.5-10.5) H 10/22/21 19:31 Urine Opiates Screen Negative ng/mL (Negative) 10/23/21 06:20 Ur Barbiturates Screen Negative ng/mL (Negative) 10/23/21 06:20 Ur Phencyclidine Scrn Negative ng/mL (Negative) 10/23/21 06:20 Ur Amphetamines Screen Negative ng/mL (Negative) 10/23/21 06:20 U Benzodiazepines Scrn Negative ng/mL (Negative) 10/23/21 06:20 Urine Cocaine Screen Negative ng/mL (Negative) 10/23/21 06:20 U Marijuana (THC) Screen Negative ng/mL (Negative) 10/23/21 06:20 EKG Data EKG 1: I personally reviewed and interpreted this EKG as follows: EKG interpretation date: 10/22/21 EKG interpretation time: 23:20 Interpretation: Twelve-lead EKG shows a regular rhythm at a rate of 70. CO interval 263, QRS duration 108, QTc 430. Left axis deviation. Interpretation: Atrial paced rhythm. First-degree AV block. Interventricular conduction delay. Other EKG comments: Chest X-Ray 10/22/21 18:46 IMPRESSION: No acute infiltrate. Critical Care Time Critical Care Time: Critical Care Time: Yes Total Critical Care Time: 35 Attestation: Due to a high probability of clinically significant, possibly life threatening deterioration, the patient required my highest level of attention and preparedness to intervene emergently and I personally spent this critical care time directly and personally managing the patient. This critical care time included obtaining a history; examining the patient; pulse oximetry; ordering and review of laboratory and imaging studies; arranging urgent treatment with development of a management plan; evaluation of patient's response to treatment; frequent reassessment; and, discussions with other providers as applicable. It was exclusive of separately billable procedures. Primary system involved is cardiovascular. Discharge Plan Discharge Patient Disposition: Placed in Observation Admit Provider: Enrrique Quiñonez Clinical Impression: ICD (implantable cardioverter-defibrillator) discharge Discharge Diet: Cardiac Discharge Activity: Increase activity as tolerated Coding Level of Care Code ED Intelligence Officer Basic for Landen Camargo
[2021-10-22 19:39] LABS: Basophils # 0.1 10^3/uL (0.0-0.1); Basophils % 0.7 %; Eosinophils # 0.1 10^3/uL (0.0-0.8); Eosinophils % 1.1 %; Hematocrit 43.7 % (42.0-52.0); Hemoglobin 13.9 g/dL (11.7-16.6); Lymphocytes # 1.2 10^3/uL (0.8-4.8); Lymphocytes % 14.2 %; Mean Corpuscular HGB Conc 31.8 g/dL (30.0-36.0); Mean Corpuscular Hemoglobin 28.4 pg (28.0-34.0); Mean Corpuscular Volume 89.4 fl (80-94); Monocytes # 0.9 10^3/uL (0.2-0.9); Monocytes % 10.8 %; Neutrophils # 5.97 10^3/uL (1.8-7.7); Neutrophils % 72.6 %; Nucleated Red Blood Cells % 0 %; Platelet Count 206 10^3/cmm (130-400); Red Blood Count 4.89 10^6/uL (4.1-5.3); Red Cell Distribution Width 15.4 % (12.1-15.1); White Blood Count 8.2 10^3/uL (4.0-10.0)
[2021-10-22 20:06] LABS: Troponin(5th) Baseline 32 ng/L (0-15)
[2021-10-22 20:07] LABS: Alanine Aminotransferase 25 U/L (0-41); Albumin Level 4.4 g/dL (3.5-5.2); Alkaline Phosphatase 101 IU/L (40-130); Aspartate Amino Transferase 25 U/L (0-40); Blood Urea Nitrogen 26 mg/dL (8-23); Calcium 11.2 mg/dL (8.5-10.5); Carbon Dioxide 21 mmol/L (22-29); Chloride 104 mmol/L (98-107); Globulin 2.9 g/dL (1.3-4.6); Glucose 108 mg/dL (65-115); Magnesium 2.3 mg/dL (1.7-2.3); Osmolality Calculated 293 mOsm/kg (285-295); Sodium 139 mmol/L (136-145); Total Bilirubin 0.8 mg/dL (0.15-1.2); Total Protein 7.3 g/dL (6.6-8.7)
[2021-10-22 20:37] LABS: NT Pro B Type Natriuretic Pept 120 pg/mL (0-125)
--- NOTE | 2021-10-22 20:46 | ECG_ITS ---
[facility] Test Date: 2021-10-22 Pat Name: Frederic Chan Department: Room: Gender: Male District Loss Prevention Manager: : 1945 Requested By: Nazario Wilder Order Number: [id number] Felicita MD: Enma Blandon M.D. Measurements Intervals [place] Rate: 70 P: 212 CT: 263 QRS: -58 QRSD: 108 T: 30 QT: 418 QTc: 452 Interpretive Statements ELECTRONIC ATRIAL PACEMAKER LEFT ANTERIOR FASCICULAR BLOCK [QRS AXIS <= -45, QR IN I, RS IN II] POSSIBLE ANTERIOR MYOCARDIAL INFARCTION , PROBABLY OLD [30 ms Q WAVE IN V3/V4, OR R < 0.2 mV IN V4] Compared to ECG 10/22/2021 19:05:11 Sinus rhythm no longer present First degree AV block no longer present Myocardial infarct finding still present Electronically Signed On 10-24-2021 9:04:57 ETL ANALYST DEVELOPER by Enma Blandon M.D. [id number]
[2021-10-22] MEDS: amiodarone 200 mg Tablet 400 MG PO (21:47)
[2021-10-22 22:09] LABS: Troponin 5 2HR 37.75 ng/L (0-15)
[2021-10-22 22:11] LABS: Troponin 5 2HR Delta 5.75 ABS# (0-10)
--- NOTE | 2021-10-22 23:14 | P.HP_ITS ---
Providers/Chief Complaint Primary Care Provider: Priscilla Long MD Chief Complaint: Pace Maker has gone off twice History of Present Illness The patient is a 76-year-old male with a previous history of CHF, ejection fraction 35-40% with grade 1 diastolic dysfunction as well as a history of V. fib/V. tach for which he is status post AICD placement who presents with chief complaint of defibrillator discharge on this day of October 22, 2021. He indicates that the first episode was proximally 4 PM. The second episode was approximately 5 PM. With the discharge he admits to lightheadedness and dizziness. He denies chest pain, dyspnea, diaphoresis, palpitations, sense of rapid heartbeat, sensation of irregular heartbeat. The patient did not experience a syncopal episode. He claims to be compliant with his medication. He denies peripheral edema. He presents for further evaluation. Of note, the patient has been hospitalized on numerous occasions for different relator discharge Review of Systems General: Reports: 10 or more systems reviewed and unremarkable except in HPI and below Medications/Allergies Home Medications Medication Instructions Recorded Confirmed Last Taken Type allopurinol 100 mg tablet 100 mg PO BID 11/05/19 10/22/21 10/22/21 History aspirin 81 mg tablet,delayed 81 mg PO DAILY@0800 11/05/19 10/22/21 10/22/21 History release (Enteric Coated Aspirin) hydralazine 50 mg tablet 50 mg PO BID@0800,1999 tab 11/05/19 10/22/21 10/22/21 History simvastatin 80 mg tablet 40 mg PO DAILY@199911/05/19 10/22/21 10/22/21 History tamsulosin 0.4 mg capsule 0.4 mg PO DAILY@199911/12/20 10/22/21 10/22/21 History apixaban 5 mg tablet 2.5 mg PO BID 08/10/21 10/22/21 10/22/21 History glucosamine sulf dipot 1 cap PO BID 08/10/21 10/16/21 Unknown History chlr,msm,chond 550 mg-C 30 mg-george 1 mg capsule (Glucosamine Chondroitin) lisinopril 40 mg tablet 20 mg PO DAILY@0800 #30 tab 08/13/21 10/22/21 10/22/21 Rx amlodipine 5 mg tablet 5 mg PO DAILY@0800 #90 tab 10/14/21 10/22/21 10/22/21 Rx amiodarone 400 mg tablet 400 mg PO DIRECTED 30 Days #90 10/18/21 10/22/21 10/22/21 Rx tab 400 magnesium 200 mg tablet 200 mg PO DAILY #60 tab 10/18/21 Unknown Rx zolpidem 5 mg tablet (Ambien) 5 mg PO BEDTIME PRN #10 tab 10/18/21 10/22/21 10/22/21 Rx Allergies Allergy/AdvReac Type Severity Reaction Status Date / Time No Known Allergies Allergy Verified 10/22/21 18:40 PFSH Acute PFSH: Medical History Cardiomyopathy, nonischemic Chronic kidney disease (CKD) COVID-19 Essential (primary) hypertension Gout History of colon cancer Hyperlipemia Hypomagnesemia ICD (implantable cardioverter-defibrillator) discharge ICD (implantable cardioverter-defibrillator) in place Nonischemic cardiomyopathy Ventricular fibrillation, paroxysmal Ventricular tachycardia Surgical History History of colon resection History of ear surgery Family History Father Cancer Dementia Social History Smoking and tobacco status: former smoker Alcohol intake: current Alcohol intake frequency: holidays/special occasions only Marital status: Current occupational status: retired Vitals/I&O/Wt Last Vital Signs Temp 97.8 F 10/22/21 18:40 Pulse 88 10/22/21 18:40 Resp 16 10/22/21 18:40 BP 138/82 10/22/21 18:40 Pulse Ox 96 10/22/21 18:40 Weight last 48 hrs Weight 97.976 kg Physical Exam Const: COMMON NORMALS: no acute distress, average body habitus, patient oriented x3, no limitations, healthy appearing, alert and well nourished HENMT: COMMON NORMALS: normocephalic, atraumatic, hearing grossly normal bilaterally, external ears normal, EAC's normal, TM's normal bilaterally, Normal external nose present, Normal nasal mucous membranes and turbinates present, moist oral mucous membranes, oropharynx normal, dentition normal and gingiva normal FACE & SINUS: normal facial exam NOSE: Normal external nose present EXTERNAL EAR: Yes external ears normal Eye: COMMON NORMALS: Equal, round and reactive pupils present, EOMs intact bilaterally, conjunctivae normal, no scleral icterus, no papilledema, normal visual velasco by confrontation and fundi normal bilaterally GENERAL EYE: appearance normal, both eyes and all related structures ALIGNMENT: Yes alignment normal Neck/C-Spine: COMMON NORMALS: full ROM, no lymphadenopathy, supple, no meningeal signs, no JVD, Thyroid normal and No carotid bruits CERVICAL SPINE: Yes cervical ROM normal Chest: COMMONS NORMALS: normal inspection of the chest, normal palpation of entire chest wall, normal inspection of the breasts and normal palpation of the breasts Resp: COMMON NORMALS: normal respiratory effort, No retractions, No use of accessory muscles, clear to auscultation bilaterally and percussion normal AUSCULTATION: clear to auscultation bilaterally Cardio: COMMON NORMALS: no JVD, regular rate, regular rhythm, S1 normal heart sound present, S2 normal heart sound present, No gallops present (Cardio), No clicks present (Cardio), No murmurs present (Cardio), No rub (Cardio) and Peripheral pulses 2+ throughout GI: COMMON NORMALS: Normal to inspection, nondistended, normoactive bowel sounds present, Soft to palpation, non-tender, No hepatosplenomegaly present, no masses and no bruits INSPECTION: Yes normal to inspection AUSCULTATION: Yes normoactive bowel sounds Back/Pelvis: COMMON NORMALS: no CVA tenderness Extremity: COMMON NORMALS: normal to inspection, full ROM, capillary refill normal, no joint enlargement, no clubbing, cyanosis or edema, no calf tenderness and no pedal edema Neuro: CRANIAL NERVES: Yes CN normal except as noted MOTOR EXAM: 5/5 motor strength present throughout DEEP TENDON REFLEXES: Right triceps reflex intensity grade: 2+, Left triceps reflex intensity grade: 2+, Rt Biceps (C5, C6): 2+, Left biceps reflex intensity grade: 2+, Right brachioradialis reflex intensity grade: 2+, Left brachioradialis reflex intensity grade: 2+, Right patellar reflex intensity grade: 2+, Left patellar reflex intensity grade: 2+, Right ankle reflex intensity grade: 2+ and Left ankle reflex intensity grade: 2+ PUPIL EXAM: Normal pupillary reactivity/response: bilateral, Dilated: bilateral, Pinpoint: bilateral, Mid position: bilateral, Sluggish: bilateral and Fixed/non-reactive: bilateral Psych: COMMON NORMALS: mental status grossly normal, Normal thought process present, cooperative, normal affect, speech normal, activity/motor behavior normal, denies hallucinations, denies homicidal ideation and denies suicidal ideation Skin: COMMON NORMALS: no rashes or lesions noted, no wounds, turgor normal, no jaundice, no petechiae and no mottling Data : 10/22/21 19:31 10/22/21 19:31 A&P Assessment and plan (1) ICD (implantable cardioverter-defibrillator) discharge: Status: Acute Plan Defibrillator discharge. Patient is chronically elevated troponin. Will monitor patient on telemetry and checks her cardiac enzymes. Magnesium level within normal limits. Patient is hypercalcemic. TSH, free T4 pending. In the morning we will check fasting lipid panel and recheck EKG. Nothing by mouth per cardiology. Aspirin 81 Mill grams by mouth daily plus metoprolol 25 Mill grams by mouth twice a day plus Lipitor 80 Mill grams by mouth daily at bedtime. Echo cardiac pending. Lexiscan pending. History of V. fib/V. tach. Patient status post AICD placement. Will monitor patient on telemetry and checks her cardiac enzymes. Amiodarone 400 Mill grams by mouth twice a day History of right upper lobe pulmonary nodule. Outpatient CT of the chest with IV contrast to be scheduled with his primary care physician History of complex right renal cyst and left renal mass. Outpatient evaluation with his primary care physician History of cholelithiasis Hypercalcemia. Will monitor calcium levels intermittently with CMP. She received pamidronate 90 mg IV ?1 on October 22, 2021. IV normal saline 75 ML's per hour. Currently pending: Ionized calcium, PTH, PTH related peptide, angiotensin-converting enzyme level, Bence-Brar protein, 25 hydroxy vitamin D level, 1, 25 hydroxy vitamin D level Gout History of pulmonary embolus and. Eliquis 2.5 Mill grams by mouth twice a day BPH CHF, ejection fraction 35-40% with grade 1 diastolic dysfunction. Patient status post AICD placement. Metoprolol 25 Mill grams by mouth twice a day Hyperlipidemia. Fasting lipid panel pending. Lipitor 80 Mill grams by mouth daily at bedtime Hypertension. Metoprolol 25 Mill grams by mouth twice a day History of colon cancer, status post chemotherapy, status post colon resection. The patient indicates that he is in remission and no longer requires to be monitored for this medical condition by Dr. NABILA Adams is. Eliquis 2.5 Mill grams by mouth twice a day Attestations Medical Necessity Statement*: The patient's hospitalization is necessary as witnessed by the performance of this H&P. Anticipated hospital stay less than 40 hours Coding Level of Care Code Acute Industrial Energy Engineer for Chg Fwd Diagnoses ICD (implantable cardioverter-defibrillator) discharge Z45.02
[2021-10-22 23:40] LABS: Free T4 Free Thyroxine 1.34 ng/dL (0.82-1.77); Thyroid Stimulating Hormone 5.25 uIU/mL (0.27-4.20)
[2021-10-22] MEDS: enoxaparin 40 mg/0.4 mL Syringe SUBCUT (23:50)
--- NOTE | 2021-10-22 23:53 | PC.NURSE ---
Verified orders for Lovenox 40mg [id number] and Eliquis 2.5mg PO BID. Received telephone order to discontinue the Lovenox and continue with Eliquis as ordered.
[2021-10-23] VITALS (21 sets, daily range): BP systolic 128–146; BP diastolic 74–92; PULSE 70–100; RESP 11–21; TEMP 36.5–36.6; O2SAT 94–96; BMI 36.1
[2021-10-23] MEDS: sodium chloride 0.9% 1,000 ML 75 ML IV ×3 (00:32→23:12)
[2021-10-23] MEDS: atorvastatin 40 mg Tablet 80 MG PO (00:32)
--- NOTE | 2021-10-23 00:46 | ECG_ITS ---
[facility] Test Date: 2021-10-23 Pat Name: Frederic Chan Department: Room: 101 Gender: Male Float Remover: : 1945 Requested By: Nazario Wilder Order Number: [id number] Felicita MD: Enma Blandon M.D. Measurements Intervals [place] Rate: 70 P: 231 CT: 261 QRS: -46 QRSD: 112 T: 11 QT: 422 QTc: 456 Interpretive Statements ELECTRONIC ATRIAL PACEMAKER LEFT ANTERIOR FASCICULAR BLOCK [QRS AXIS <= -45, QR IN I, RS IN II] POSSIBLE ANTERIOR MYOCARDIAL INFARCTION , PROBABLY OLD [30 ms Q WAVE IN V3/V4, OR R < 0.2 mV IN V4] Compared to ECG 10/22/2021 23:15:35 No significant changes Electronically Signed On 10-24-2021 9:04:37 SUPERVISOR DRY CELL ASSEMBLY by Enma Blandon M.D. [id number]
[2021-10-23 00:52] LABS: Calcium 11.2 mg/dL (8.5-10.5)
[2021-10-23 00:58] LABS: Parathyroid Hormone 77.6 pg/mL (15-65)
[2021-10-23 01:06] LABS: 25 Hydroxy Vitamin D 19 ng/mL (30-100)
[2021-10-23 04:01] LABS: Alanine Aminotransferase 20 U/L (0-41); Albumin Level 3.7 g/dL (3.5-5.2); Alkaline Phosphatase 82 IU/L (40-130); Anion Gap 11.8 (5-19); Aspartate Amino Transferase 21 U/L (0-40); Blood Urea Nitrogen 21 mg/dL (8-23); Calcium 9.2 mg/dL (8.5-10.5); Carbon Dioxide 24 mmol/L (22-29); Chloride 106 mmol/L (98-107); Chol HDL Ratio 3.02 mg/dL (1.0-5.00); Cholesterol 127 mg/dL (0-200); Globulin 2.5 g/dL (1.3-4.6); Glucose 135 mg/dL (65-115); HDL Cholesterol 42 mg/dL (60-100); LDL Cholesterol Calculated 65 mg/dL (50-129); LDL HDL Ratio 1.55 RATIO (0.00-3.22); Osmolality Calculated 291 mOsm/kg (285-295); Potassium 3.8 mmol/L (3.5-5.1); Sodium 138 mmol/L (136-145); Total Bilirubin 0.8 mg/dL (0.15-1.2); Total Protein 6.2 g/dL (6.6-8.7); Triglycerides 101 mg/dL (0-150)
--- NOTE | 2021-10-23 05:44 | PC.NURSE ---
Shift Note Frequent safety and comfort rounds continue. Orders and/or nursing care completed as indicated. Patient monitored for response to intervention and treatment(s). Education provided includes Lexiscan planned for today. Patient verbalized understanding. Patient had uneventful night. No indication of arrthymia. Patient denies defibrillator firing during the night. Patient denies pain or needs. Ultrasound in with patient at this time. No distress observed. Will continue to monitor.
--- NOTE | 2021-10-23 06:00 | ECG_ITS ---
[facility] Test Date: 2021-10-23 Pat Name: Frederic Chan Department: Room: 101 Gender: Male Director Personal: : 1945 Requested By: Enrrique Quiñonez Order Number: [id number] Mims MD: Enma Blandon M.D. Measurements Intervals [place] Rate: 70 P: 111 VA: 269 QRS: -29 QRSD: 114 T: 43 QT: 437 QTc: 472 Interpretive Statements ELECTRONIC ATRIAL PACEMAKER POSSIBLE ANTEROLATERAL MYOCARDIAL INFARCTION , PROBABLY OLD [30 ms Q WAVE IN I/aVL/V3-V6] ABNORMAL RHYTHM ECG Compared to ECG 10/23/2021 01:34:26 Left anterior fascicular block no longer present Myocardial infarct finding still present Electronically Signed On 10-24-2021 9:03:43 SLIDING JOINT MAKER by Enma Blandon M.D. [id number]
[2021-10-23 07:03] LABS: Amphetamines Screen Urine Negative (Negative); Barbiturates Screen Urine Negative (Negative); Benzodiazepines Screen Urine Negative (Negative); Cocaine Screen Urine Negative (Negative); Opiate Screen Urine Negative (Negative); PCP Screen Urine Negative (Negative); THC Screen Urine Negative (Negative)
--- NOTE | 2021-10-23 08:26 | PM.PN ---
Subjective Subjective: Patient was seen and examined this morning, he was complaining of episodes of defibrillator discharge, times 2 yesterday, prior to each episode he has lightheadedness, and this has been the presentation in earlier episodes also. Currently he is denying any chest pain , shortness of breath Patient underwent cardiac cath today: Nonobstructive coronary artery disease ectatic vessels, patient will need transfer for VT ablation. Medications: Medication Review Details: Generic Name Dose Route Start Last Admin Trade Name Gloria PRN Reason Stop Dose Admin Allopurinol 100 mg 10/23/21 09:00 10/23/21 18:34 Allopurinol 100 Mg Tablet PO 100 mg BID EVELYN Administration Amiodarone HCl 400 mg 10/23/21 09:00 10/23/21 18:34 Amiodarone 200 M g Tablet PO 400 mg BID EVELYN Administration Amlodipine Besylat e 5 mg 10/23/21 09:00 10/23/21 09:27 Amlodipine 5 Mg Tablet PO 5 mg DAILY@0800 EVELYN Administration Aspirin 81 mg 10/23/21 09:00 10/23/21 09:27 Aspirin 81 Mg Ec Tablet PO 81 mg DAILY EVELYN Administration Sodium Chloride 1,000 mls @ 75 ml s/hr 10/22/21 23:50 10/23/21 12:47 Sodium Chloride 0.9% IV 75 mls/hr .[id number] EVELYN Administration Metoprolol Tartrat e 25 mg 10/23/21 09:00 10/23/21 09:27 Metoprolol Tartr ate 25 Mg Tablet PO 25 mg BID@0900,2100 EVELYN Administration Vitamin D 5,000 unit 10/23/21 09:00 10/23/21 09:27 Cholecalciferol (Vitamin D3) 5,000 Unit Tablet PO 5,000 unit DAILY EVELYN Administration Vitals/I&O/Wt Last Vital Signs Temp 97.9 F 10/23/21 08:18 Pulse 70 10/23/21 08:18 Resp 17 10/23/21 08:18 BP 146/86 10/23/21 08:18 Pulse Ox 96 10/22/21 18:40 10/22/21 10/23/21 10/23/21 22:59 06:59 14:59 Intake Total 570 / 570 Output Total 350 / 350 250 / 250 Balance 220 / 220 -250 / -250 Weight last 48 hrs Weight 114.124 kg Weight 97.976 kg Physical Exam Const: COMMON NORMALS: patient oriented x3 HENMT: COMMON NORMALS: normocephalic, atraumatic, hearing grossly normal bilaterally and external ears normal HEAD & SCALP: normocephalic and atraumatic EXTERNAL EAR: Yes external ears normal Eye: COMMON NORMALS: no scleral icterus GENERAL EYE: appearance normal, both eyes and all related structures Chest: COMMONS NORMALS: normal inspection of the chest and normal palpation of entire chest wall CHEST: Yes Symmetrical chest wall rise Resp: COMMON NORMALS: normal respiratory effort, No retractions, No use of accessory muscles and clear to auscultation bilaterally EFFORT & INSPECTION: Yes symmetric chest movement AUSCULTATION: clear to auscultation bilaterally Cardio: COMMON NORMALS: regular rate, regular rhythm, S1 normal heart sound present, S2 normal heart sound present, No gallops present (Cardio), No murmurs present (Cardio), No rub (Cardio) and Peripheral pulses 2+ throughout RATE: regular rate RHYTHM: regular rhythm HEART SOUNDS: S1 normal heart sound present and S2 normal heart sound present PERIPHERAL PULSES: Peripheral pulses 2+ throughout GI: COMMON NORMALS: Normal to inspection, nondistended, normoactive bowel sounds present, Soft to palpation, non-tender, No hepatosplenomegaly present and no masses AUSCULTATION: Yes normoactive bowel sounds PALPATION: Yes Soft to palpation and Yes No hepatosplenomegaly present RECTAL EXAM: Yes deferred Extremity: COMMON NORMALS: no clubbing, cyanosis or edema and no pedal edema Neuro: COMMON NORMALS: patient oriented x3 Data : 10/22/21 19:31 10/23/21 03:29 A&P Assessment and plan (1) ICD (implantable cardioverter-defibrillator) discharge: Status: Acute Plan Defibrillator discharge. Patient is chronically elevated troponin. Will monitor patient on telemetry and checks her cardiac enzymes. Magnesium level within normal limits. Patient is hypercalcemic. TSH, free T4 pending. In the morning we will check fasting lipid panel and recheck EKG. Nothing by mouth per cardiology. Aspirin 81 Mill grams by mouth daily plus metoprolol 25 Mill grams by mouth twice a day plus Lipitor 80 Mill grams by mouth daily at bedtime. Echo cardiac pending. Lexiscan pending. History of V. fib/V. tach. Patient status post AICD placement. Will monitor patient on telemetry and checks her cardiac enzymes. Amiodarone 400 Mill grams by mouth twice a day History of right upper lobe pulmonary nodule. Outpatient CT of the chest with IV contrast to be scheduled with his primary care physician History of complex right renal cyst and left renal mass. Outpatient evaluation with his primary care physician History of cholelithiasis Hypercalcemia. Will monitor calcium levels intermittently with CMP. She received pamidronate 90 mg IV ?1 on October 22, 2021. IV normal saline 75 ML's per hour. Currently pending: Ionized calcium, PTH, PTH related peptide, angiotensin-converting enzyme level, Bence-Brar protein, 25 hydroxy vitamin D level, 1, 25 hydroxy vitamin D level Gout History of pulmonary embolus and. Eliquis 2.5 Mill grams by mouth twice a day BPH CHF, ejection fraction 35-40% with grade 1 diastolic dysfunction. Patient status post AICD placement. Metoprolol 25 Mill grams by mouth twice a day Hyperlipidemia. Fasting lipid panel pending. Lipitor 80 Mill grams by mouth daily at bedtime Hypertension. Metoprolol 25 Mill grams by mouth twice a day History of colon cancer, status post chemotherapy, status post colon resection. The patient indicates that he is in remission and no longer requires to be monitored for this medical condition by Dr. DAHL Proflex is. Eliquis 2.5 Mill grams by mouth twice a day Attestations Medical Necessity Statement*: Patient needs to be in hospital for management of recurrent defibrillator discharge. Time Spent in Patient Care: Greater than 35 minutes (>than 50% of time spent in counselling and/or direct pt care on unit). Coding Level of Care Code Acute Pick Up for [facility] Fwd Exam Comprehensive Diagnoses ICD (implantable cardioverter-defibrillator) discharge Z45.02
--- NOTE | 2021-10-23 08:27 | PC.PHAR ---
pt states he takes care of his own medications-pt states the sotalol 80mg bid filled on 09/13/21 90d/s and kcl 20meq daily filled on 09/13/21 90d/s was dced-pts states since the pt was discharged from the hospital the pt hasnt really been taking his magnesium 200mg daily-notes are made in the pharmacy comments
--- NOTE | 2021-10-23 09:02 | P.CONIM_ITS ---
Providers/Reason For Consult Consulting Physician/Specialty*: Tigre Price MD/ Cardiology Reason for Consult*: Ventricular tachycardia Attending Physician: Vincenzo Gayle MD Primary Care Provider: Priscilla Long MD History of Present Illness History of Present Illness Frederic Sprague Tutone is a 76 year old male with past medical history of nonischemic cardiomyopathy with ICD in place, last EF 35 to 40%, has presented with ICD discharge. He has been having multiple episodes of ICD discharges. On this occasion he was lightheaded however did not pass out. He has not experienced any passing out spells recently. He is compliant with his medications. Recently his sotalol was switched to amiodarone. No recent ischemic work-up has been done. Review of Systems Const: Denies: fever(s), chills or fatigue Eyes: Denies: change in vision Card: Denies: chest pain, palpitations, irregular heart rhythm, edema, swelling of feet/ankles, lightheadedness, syncope, pre-syncope, dyspnea on exertion, orthopnea or leg pain with exertion Resp: Denies: dyspnea GI: Denies: nausea or vomiting Musc: Denies: neck pain, back pain or joint pain Neuro: Denies: headache(s) or dizziness Psych: Denies: anxiety, depression, suicidal ideation or homicidal ideation Endo: Denies: tired all the time Jemal/Lymph: Reports: easy bruising and easy bleeding Medications/Allergies Home Medications Medication Instructions Recorded Confirmed Last Taken Type allopurinol 100 mg tablet 100 mg PO BID 11/05/19 10/23/21 10/15/21 History aspirin 81 mg tablet,delayed 81 mg PO DAILY@0800 11/05/19 10/23/21 10/15/21 History release (Enteric Coated Aspirin) hydralazine 50 mg tablet 50 mg PO BID@0800,1999 tab 11/05/19 10/23/21 10/16/21 History simvastatin 80 mg tablet 40 mg PO DAILY@199911/05/19 10/23/21 10/15/21 History tamsulosin 0.4 mg capsule 0.4 mg PO DAILY@199911/12/20 10/23/21 10/15/21 History apixaban 5 mg tablet 2.5 mg PO BID 08/10/21 10/23/21 10/16/21 History glucosamine sulf dipot 1 cap PO BID 08/10/21 10/23/21 Unknown History chlr,msm,chond 550 mg-C 30 mg-george 1 mg capsule (Glucosamine Chondroitin) amlodipine 5 mg tablet 5 mg PO DAILY@0800 #90 tab 10/14/21 10/23/21 10/15/21 Rx magnesium 200 mg tablet 200 mg PO DAILY #60 tab 10/18/21 10/23/21 Unknown Rx zolpidem 5 mg tablet (Ambien) 5 mg PO BEDTIME PRN #10 tab 10/18/21 10/23/21 Unknown Rx amiodarone 400 mg tablet 400 mg PO BID 10/23/21 10/23/21 Unknown History lisinopril 40 mg tablet 40 mg PO DAILY@0800 10/23/21 10/23/21 Unknown History Allergies Allergy/AdvReac Type Severity Reaction Status Date / Time No Known Allergies Allergy Verified 10/23/21 08:29 Current Medications Generic Name Dose Route Start Last Admin Trade Name Freq PRN Reason Stop Dose Admin Sodium Chloride 1,000 mls @ 75 mls/hr 10/22/21 23:50 10/23/21 00:32 Sodium Chloride 0.9% IV 75 mls/hr .[id number] EVELYN Administration PFSH Acute PFSH: Medical History (Updated 10/23/21 @ 09:14 by Tigre Price M.D) Cardiomyopathy, nonischemic Chronic kidney disease (CKD) COVID-19 Essential (primary) hypertension Gout History of colon cancer Hyperlipemia Hypomagnesemia ICD (implantable cardioverter-defibrillator) discharge ICD (implantable cardioverter-defibrillator) in place Nonischemic cardiomyopathy Ventricular fibrillation, paroxysmal Ventricular tachycardia Surgical History History of colon resection History of ear surgery Family History Father Cancer Dementia Social History Smoking and tobacco status: former smoker Alcohol intake: current Alcohol intake frequency: holidays/special occasions only Marital status: Current occupational status: retired Vitals/I&O/Wt Last Vital Signs Temp 97.9 F 10/23/21 08:18 Pulse 70 03/04/22 08:18 Resp 17 10/23/21 08:18 BP 146/86 10/23/21 08:18 Pulse Ox 96 10/22/21 18:40 10/22/21 10/23/21 10/23/21 22:59 06:59 14:59 Intake Total 570 / 570 Output Total 350 / 350 250 / 250 Balance 220 / 220 -250 / -250 Weight last 48 hrs Weight 251 lb 9.6 oz Weight 216 lb Physical Exam Narrative: GENERAL: Patient is alert, awake and oriented x3. [] NECK: No jugular vein distension. [] HEENT: No cyanosis. No icterus. No pallor. [] HEART: Regular S1 and S2. No murmur, rub or gallop. [] LUNGS: Clear to auscultate bilaterally. [] ABDOMEN: Soft, nontender and nondistended. Positive bowel sounds. No guarding, rebound or tenderness. [] CENTRAL NERVOUS SYSTEM: Grossly nonfocal. [] EXTREMITIES: Lower extremities with 1+ edema bilaterally. Pulses palpable in the lower extremities, both dorsalis pedis and posterior tibial. [] Data : 10/22/21 19:31 10/23/21 03:29 A&P Assessment and plan (1) ICD (implantable cardioverter-defibrillator) discharge: Status: Acute (2) Cardiomyopathy, nonischemic: Status: Acute (3) Essential (primary) hypertension: Status: Acute (4) Ventricular tachycardia: Status: Acute Plan Patient has been having episodes of VT and multiple ICD discharges. His sotalol was recently switched to amiodarone. He does not have recent ischemic work-up. We will proceed with coronary angiogram to rule out ischemia as cause of his multiple ICD discharges. If no CAD is found, we will refer him for EP study and possible VT ablation. N.p.o. for now. Continue amiodarone at current dose. Thank you for involving us with care of this patient. We will continue to follow. Please call with questions. Coding Level of Care Code Acute Time Signal Wirer for Chrisg Fwd Diagnoses ICD (implantable cardioverter-defibrillator) discharge Z45.02 Cardiomyopathy, nonischemic I42.8 Essential (primary) hypertension I10 Ventricular tachycardia I47.2
[2021-10-23 09:10] LABS: Ionized Calcium 1.3 mmol/L (1.1-1.4)
[2021-10-23] MEDS: amiodarone 200 mg Tablet 400 MG PO ×2 (09:27→18:34)
[2021-10-23] MEDS: allopurinol 100 mg Tablet PO ×2 (09:27→18:34)
[2021-10-23] MEDS: cholecalciferol (vitamin D3) 5,000 unit Tablet 5000 UNIT PO (09:27)
[2021-10-23] MEDS: amlodipine 5 mg Tablet PO (09:27)
[2021-10-23] MEDS: aspirin 81 mg EC Tablet PO (09:27)
[2021-10-23] MEDS: metoprolol tartrate 25 mg Tablet PO ×2 (09:27→20:09)
--- NOTE | 2021-10-23 09:49 | XACV_ITS ---
Exam Room: [facility] Ht: 178 cm Wt: 114 kg BSA: 2.41 m2 Gender: Male : 1945 Any Known Allergies: No known allergies Exam Priority: Routine Procedure(s): Procedure Description: Diagnostic procedure Procedure Description: Coronary Angiography Diagnostic Cath Status: Urgent Diagnostic Findings * No significant disease noted in the Left Main, Left Anterior Descending, Right, or Circumflex coronary arteries. Patient has ectatic vessels. Slow flow noted especially in RCA.. * Coronary angiography shows right dominance. Conclusions 1. No significant disease noted in the Left Main, Left Anterior Descending, Right, or Circumflex coronary arteries. Patient has ectatic vessels. Slow flow noted especially in RCA.. Recommendations * Ventricular tachycardia not related to Coronary artery disease. * Will need EP evaluation. Interventional RX Recommendation: medical therapy and/or counseling Diagnostic RX Recommendation: medical therapy and/or counseling Anticoagulation: Heparin Pressures Phase:Rest AO : 121 / 86 ( 102 ) @ 3:14:00 PM Clinical Evaluation EBL: 5mL-10mL Procedural Details Procedure Consent Obtained. Pre-Procedure Time Out. Identified patient by full name and date of as verbalized by the patient/guarantor. Does the consent match the physician's order: Yes. Accurate & Complete Informed Consent: Yes. Inpatient/Outpatient History & Physical on Chart: Yes. If H&P is completed, is and addenduem needed: No; If yes, is the addendum complete: N/A. Visualize and Verify Site with Patient/Guarantor: N/A. Relevant Radiology Images available: N/A. Pre-op teaching completed and patient verbalized understanding. The risks, benefits, and alternatives of sedation and/or procedure were discussed by physician. The patient agrees to continue. Procedure started. [facility] Clinical Fraility Score: 4: Vulnerable. Transmission Repairer Indications: Cardiac Arrhythmia, V-tach. Chest Pain Symptom Assessment: Atypical Angina. Cardiovascular Instability: No. Correct patient, site and procedure confirmed by cath team. PERRLA. Strong, equal hand copy room technician bilaterally. Lungs clear x 5 lobes. IV Site on Arrival: 20 gauge in the right anticubital. Physician arrived. Luis Manuel Banks will be scrub assist for procedure. IV Fluids: 0.9% NaCl at KVO. 250 mL infused prior to manager labor delivery. Oxygen started at 2liters/min via nasal canula. Pre Procedural Pulses: right radial was 3+. right groin was prepped with chloroprep then draped in the usual sterile fashion. right radial was prepped with chloroprep then draped in the usual sterile fashion. Baseline sample Acquired. HR: 28 BPM. Equipment: 6F - Radial. Cardiac Cath Pack. ACIST Manifold Kit Model BT 2000. Heparinized Saline (2 units/mL), 1000 mL bag. Physician scrubbed in. Immediate Pre-Procedure Time Out. Correct Patient: Yes; Correct Procedure: Yes; Correct Site: Yes; Correct Patient Position: Yes; Correct Supplies: Yes; Dried Flammable Prep: Yes; Blood Products Available: N/A;. Lidocaine 1% infiltrated to the right radial. Arterial access obtained. A 5 egyptian TIG catheter in over wire. Multiple views taken of right coronary artery. Catheter redirected to the LCA. Catheter removed over the standard wire. A 5 egyptian JL3.5 catheter in over wire. Multiple views taken of left coronary artery. Catheter removed over the standard wire. Physician scrubbed out. A TR Band was successful obtaining hemostatsis at the Right Radial artery insertion site. TR band placed. Hemostasis obtained. Post Procedure: Pulses reassessed and unchanged. PERRLA. Strong, equal hand copy room technician bilaterally. No VTE prophylaxis required. Medication's Wasted: Lidocaine 1% = 18 mL. Medication's Wasted: Nitro = 49.8 mg. Medication's Wasted: Heparin = 1000 units. Total IV fluids: 25 mL. Contrast type used: Visipaque 320 mgI/mL, 500 mL bottle. Post-op diagnosis: non obstructive CAD. Complications: none. Estimated blood loss: 5mL-10mL. Responsiveness - Normal response to verbal stimuli; alert and oriented, PERRLA. Airway - Unaffected, no intervention required; spontaneous ventilation. Circulation: W/N/L, pulses unchanged. Nausea/Vomiting: No. Procedure completed. Patient transferred by wheelchair to 1st floor. Vital chart was stopped. Access Site Site: Right Radial artery Sheath Size: 6 Fr Hemostasis Method: TR Band Hemostasis Success: Successful Procedure Medications Start: 3:03 PM Stop: 3:03 PM Medication: Versed Amount: 1 mg Route: I.V. Start: 3:03 PM Stop: 3:03 PM Medication: Fentanyl Amount: 50 mcg Route: I.V. Start: 3:11 PM Stop: 3:11 PM Medication: Nitrogylcerin Amount: 200 mcg Route: I.A. Start: 3:14 PM Stop: 3:14 PM Medication: Heparin Amount: 5000 units Route: I.V. Start: 3:14 PM Stop: 3:14 PM Medication: Versed Amount: 1 mg Route: I.V. Start: 3:14 PM Stop: 3:14 PM Medication: Fentanyl Amount: 50 mcg Route: I.V. I, the attending physician, have reviewed and verified all procedure medications. Yes, all medications given per verbal order History/Risk Factors Hypertension: Yes Dyslipidemia: Yes Peripheral Arterial Disease (PAD): No Myocardial Infarction (AZ): No Obesity: No Renal Disease: No Tobacco Use: Former Prior Interventions PCI: No CABG: No Valve Surgery: No Report Signatures Finalized by Tigre Price MD on 10/26/2021 12:28 PM
--- NOTE | 2021-10-23 09:54 | PC.CHAP ---
Pastoral Care Encounter/Spiritual Assessment Type of Contact [] Declined buyer grain visit [] Patient/Family/Request visit [] Outpatient visit [] Follow-up visit [] Physician referral [] Code/Alert [x] Routine visit [] Staff referral [] Actively dying [] Patient sleeping [] Family support [] [] Out of room [] Palliative care [] [] Receiving care in room [] Pre-surgical visit [] Trauma [] Long length of stay [] ICU visit [] Other: Relational/Emotional Strength [] Patient feels connected with others/family/visitors/staff [] Distress [] Loneliness/isolation [] Abandonment Spirituality of Patient [] Person of Oliva [] Attends Buddhism of their Oliva [] Believes in Prayer [] Reads Bible or Jew materials [] There are Spiritual issues to be addressed Shoe Lining Fitter Interventions [x] Prayer x[] Active listening [x] Non-anxious presence [x] Spiritual/emotional support [] Crisis/trauma care [] Spiritual counseling [] Bereavement support [] Provided bereavement packet [] Provided Bible/devotional materials [] Provided toy/stuffed animal, coloring book to patient or family member [] Provided Communion [] Anointing/[place]ilderland [] Salvation [x] Completed spiritual assessment [] Other: Impact on Illness or Injury [] Angry [] Fearful [] Anxious [] Often cries [] Exhaustion [] Unable to work [] Unable to attend temple [] Unable to walk/stand [] Unable to read [] Unable to drive [] Unable to eat/drink [] Unable to sleep [] Unable to be with family [] Patient intubated [] Other: Summary patient feeling stronger... Time spent with patient 10 min
--- NOTE | 2021-10-23 15:04 | W.PM.OPSUD ---
Surgery/Procedure H&P Update DATE OF PROCEDURE: October 23, 2021 DATE H&P PERFORMED: 10/23/21 H&P UPDATE INFORMATION: I have reviewed H&P completed within last 30 days, I have examined patient prior to procedure and No changes to prior documentation PREOP DIAGNOSIS: Ventricular tachycardia PRIMARY INDICATION FOR PROCEDURE: Ventricular tachycardia PLANNED PROCEDURE: Left heart cath with possible percutaneous coronary intervention PATIENT REASSESSED PRIOR TO SEDATION, WITH NO CHANGE NOTED: Yes PHYSICAL EXAM: alert, oriented x 3, clear to auscultation bilaterally and regular rate & rhythm AIRWAY EVAL/ANESTHESIA PLAN: ASA III, Monitored Anesthesia, Local Anesthesia, Risks, benefits & alternatives of sedation and/or procedure discussed and Patient agrees to continue as planned
--- NOTE | 2021-10-23 16:25 | P.MISC_ITS ---
Miscellaneous Note Purpose of Documentation: Interventional cardiology brief procedure note Note: Left heart cath: Non obstructive CAD Ectatic vessels Recommendation: Patient will need to be transferred to a center with EP availa bility as will need evaluation with EP study with possible VT ablation
[2021-10-23] MEDS: hyDRALAzine 50 mg Tablet PO (20:08)
[2021-10-23] MEDS: tamsulosin 0.4 mg Capsule PO (20:08)
[2021-10-23] MEDS: atorvastatin 40 mg Tablet 20 MG PO (20:08)
--- NOTE | 2021-10-23 20:14 | PC.NURSE ---
Received report from FEROZ Alvarez. Patient is s/p C without intervention via right radial. Dressing in place to site remains c,d,i with no s/s of bleeding or hematoma formation observed. Patient denies pain or needs. Instructed patient on site care and restrictions. Patient verbalized complete understanding. No distress observed. Will continue to monitor.
--- NOTE | 2021-10-23 23:50 | USCV_ITS ---
Frederic Chan Age: 76 Gender: M : 1945 Exam Date: 10/23/2021 05:45 Ordering Phys: Enrrique Quiñonez DO Technologist: Karolyn Lyn Exam Location: [facility] [place] Indication: D FIB DISCHARGE BP: 136 / 84 HR: 70 Rhythm: Sinus Technical Quality: Adequate MEASUREMENTS (Male / Female) Normal Values 2D ECHO LV Diastolic Diameter PLAX 4.7 cm 4.2 - 5.9 / 3.9 - 5.3 cm LV Systolic Diameter PLAX 3.5 cm IVS Diastolic Thickness 1.8 cm 0.6 - 1.0 / 0.6 - 0.9 cm IVS Systolic Thickness 2.0 cm LVPW Diastolic Thickness 1.5 cm 0.6 - 1.0 / 0.6 - 0.9 cm LVPW Systolic Thickness 2.0 cm LVOT Diameter 2.0 cm LV Ejection Fraction 2D Teich 50.7 % LV Ejection Fraction MOD 2C 49.1 % LV Ejection Fraction 2C AL 49.3 % LA Diameter 4.0 cm LA Width 3.3 cm LA Height 4.4 cm RA Width 3.0 cm RA Height 4.3 cm Aorta at Sinotubular Diameter 2.9 cm M-MODE Aortic Annulus Diameter 3.2 cm LA Ao Ratio MM 1.2 MV E Point Septal Separation 1.4 cm DOPPLER AV Peak Velocity 140.0 cm/s LVOT Peak Velocity 81.7 cm/s AV Area Cont Eq vti 2.1 cm squared AV Area Cont Eq pk 1.9 cm squared MV Peak Velocity 118.0 cm/s MV Area PHT 5.0 cm squared Mitral E to A Ratio 0.8 MV E' Velocity 51.5 cm/s Mitral E to MV E' Ratio 11.2 Mitral E to LV E' Lateral Ratio 8.9 Mitral E to LV E' Septal Ratio 15.2 TR Peak Velocity 197.0 cm/s TR Peak Gradient 15.5 mmHg TV Peak E Velocity 71.0 cm/s Right Atrial Pressure 3.0 mmHg Pulmonary Artery Systolic Pressu 18.5 mmHg PV Peak Velocity 98.0 cm/s RV Acceleration Time 0.1 s RV Ejection Time 0.3 s RV AcT/ET 0.2 FINDINGS Left Ventricle Normal left ventricular size and wall thickness. Moderately reduced left ventricle systolic function. Left ventricular ejection fraction estimated at 35%. Moderate global hypokinesis. Indeterminate diastolic function. Right Ventricle Normal right ventricular size and systolic function. Right ventricular systolic pressure 18.5 mmHg. ICD wire visualized in the right ventricle. Right Atrium Normal right atrial size. Left Atrium Moderately increased left atrial size. Mitral Valve Thickened mitral valve. No mitral valve stenosis. Trace mitral valve regurgitation. Aortic Valve Aortic valve not well visualized. No aortic valve stenosis. No aortic valve regurgitation. Tricuspid Valve Tricuspid valve not well visualized. Pulmonic Valve Pulmonic valve not well visualized. Pericardium No pericardial effusion. Aorta Normal-sized aortic root. CONCLUSIONS 1. Normal left ventricular size. Moderately reduced left ventricle systolic function. Left ventricular ejection fraction estimated at 35%. Moderate global hypokinesis. Indeterminate diastolic function. 2. Normal right ventricular size and systolic function. 3. Moderately increased left atrial size. 4. When compared to previous echocardiogram dated 08/11/2021, there may not have been any significant change. Enma Blandon MD (Electronically Signed) Final Date: 23 October 2021 17:02 S
[2021-10-24] VITALS (16 sets, daily range): BP systolic 115–141; BP diastolic 70–96; PULSE 70–80; RESP 0–24; O2SAT 95
[2021-10-24 04:15] LABS: Basophils # 0.1 10^3/uL (0.0-0.1); Eosinophils # 0.2 10^3/uL (0.0-0.8); Eosinophils % 2.5 %; Hematocrit 42.8 % (42.0-52.0); Hemoglobin 13.5 g/dL (11.7-16.6); Lymphocytes # 1.3 10^3/uL (0.8-4.8); Lymphocytes % 22.5 %; Mean Corpuscular HGB Conc 31.5 g/dL (30.0-36.0); Mean Corpuscular Hemoglobin 28.5 pg (28.0-34.0); Mean Corpuscular Volume 90.5 fl (80-94); Mean Platelet Volume 9.8 fL (7.4-10.4); Monocytes # 0.6 10^3/uL (0.2-0.9); Monocytes % 9.6 %; Neutrophils % 63.9 %; Nucleated Red Blood Cells % 0 %; Platelet Count 193 10^3/cmm (130-400); Red Blood Count 4.73 10^6/uL (4.1-5.3); Red Cell Distribution Width 15.2 % (12.1-15.1)
[2021-10-24 04:30] LABS: Anion Gap 13.5 (5-19); Blood Urea Nitrogen 13 mg/dL (8-23); Carbon Dioxide 24 mmol/L (22-29); Chloride 107 mmol/L (98-107); Glucose 107 mg/dL (65-115); Magnesium 2.1 mg/dL (1.7-2.3); Osmolality Calculated 291 mOsm/kg (285-295); Potassium 4.5 mmol/L (3.5-5.1); Sodium 140 mmol/L (136-145)
--- NOTE | 2021-10-24 04:34 | PC.NURSE ---
Shift Note Frequent safety and comfort rounds continue. Orders and/or nursing care completed as indicated. Patient monitored for response to intervention and treatment(s). Education provided includes site care instructions s/p [facility]. Patient verbalized complete understanding. Dressing to right wrist remain c,d,i with no s/s of bleeding or hematoma formation observed. Patient denies pain or needs. No cardiac arrhythmias through this night. No other distress observed. Will continue to monitor.
[2021-10-24] MEDS: metoprolol tartrate 25 mg Tablet PO ×2 (08:34→20:10)
[2021-10-24] MEDS: aspirin 81 mg EC Tablet PO (08:34)
[2021-10-24] MEDS: amlodipine 5 mg Tablet PO (08:34)
[2021-10-24] MEDS: hyDRALAzine 50 mg Tablet PO ×2 (08:34→20:10)
[2021-10-24] MEDS: cholecalciferol (vitamin D3) 5,000 unit Tablet 5000 UNIT PO (08:35)
[2021-10-24] MEDS: allopurinol 100 mg Tablet PO ×2 (08:35→18:11)
[2021-10-24] MEDS: amiodarone 200 mg Tablet 400 MG PO ×2 (08:35→18:10)
--- NOTE | 2021-10-24 09:13 | P.PN_ITS ---
Subjective Subjective: Patient is doing well. Denies any complaints of chest pain, shortness of breath or palpitations. No more ICD shocks or VT episodes Vitals/I&O/Wt Last Vital Signs Temp 97.8 F 10/23/21 13:45 Pulse 72 10/24/21 04:22 Resp 18 10/24/21 04:00 BP 125/85 10/24/21 04:00 Pulse Ox 95 10/24/21 02:52 10/23/21 10/24/21 10/24/21 22:59 06:59 14:59 Intake Total 360 / 1360 1000 / 2360 Output Total 550 / 1500 650 / 2150 Balance -190 / -140 350 / 210 Weight last 48 hrs Weight 251 lb 9.6 oz Weight 216 lb Physical Exam Narrative: GENERAL: Patient is alert, awake and oriented x3. [] NECK: No jugular vein distension. [] HEENT: No cyanosis. No icterus. No pallor. [] HEART: Regular S1 and S2. No murmur, rub or gallop. [] LUNGS: Clear to auscultate bilaterally. [] ABDOMEN: Soft, nontender and nondistended. Positive bowel sounds. No guarding, rebound or tenderness. [] CENTRAL NERVOUS SYSTEM: Grossly nonfocal. [] EXTREMITIES: Lower extremities with 1+ edema bilaterally. Pulses palpable in the lower extremities, both dorsalis pedis and posterior tibial. [] Data : 10/25/21 02:36 10/25/21 02:36 A&P Assessment and plan (1) ICD (implantable cardioverter-defibrillator) discharge: Status: Acute (2) Cardiomyopathy, nonischemic: Status: Acute (3) Essential (primary) hypertension: Status: Acute (4) Ventricular tachycardia: Status: Acute Plan Patient has been having episodes of VT and multiple ICD discharges. His sotalol was recently switched to amiodarone. He does not have recent ischemic work-up. Coronary angiogram performed yesterday showed patent coronary arteries however there were ectatic. Continue amiodarone. Today we tried transferring patient out to center with EP availability. EP service from [facility] advised to try transferring patient to [place] as his VT ablation if needed will be complex given his nonischemic cardiomyopathy. [facility] was contacted and they do not have bed availability at this time. We will start mexiletine We will try to assess bed availability situation at [facility] tomorrow. If still not available, and patient is not having further VT episodes, he can be referred as an outpatient Thank you for involving us with care of this patient. We will continue to follow. Please call with questions. Attestations Medical Necessity Statement*: Care expected to cross 2 midnights. Coding Level of Care Code Acute [employer] Developer [employer] for [facility] Fwd Diagnoses ICD (implantable cardioverter-defibrillator) discharge Z45.02 Cardiomyopathy, nonischemic I42.8 Essential (primary) hypertension I10 Ventricular tachycardia I47.2
--- NOTE | 2021-10-24 09:35 | PC.NURSE ---
spoke with Dr tolentino about patient continued fluids instructions to stop fluids now
--- NOTE | 2021-10-24 14:09 | PM.PN ---
Subjective Subjective: Patient was seen and examined this morning, denies any acute events, no more AICD discharge during the hospital stay. Medications: Medication Review Details: Generic Name Dose Route Start Last Admin Trade Name Gloria PRN Reason Stop Dose Admin Allopurinol 100 mg 10/23/21 09:00 10/23/21 18:34 Allopurinol 100 Mg Tablet PO 100 mg BID EVELYN Administration Amiodarone HCl 400 mg 10/23/21 09:00 10/23/21 18:34 Amiodarone 200 M g Tablet PO 400 mg BID EVELYN Administration Amlodipine Besylat e 5 mg 10/23/21 09:00 10/23/21 09:27 Amlodipine 5 Mg Tablet PO 5 mg DAILY@0800 EVELYN Administration Aspirin 81 mg 10/23/21 09:00 10/23/21 09:27 Aspirin 81 Mg Ec Tablet PO 81 mg DAILY EVELYN Administration Sodium Chloride 1,000 mls @ 75 ml s/hr 10/22/21 23:50 10/23/21 12:47 Sodium Chloride 0.9% IV 75 mls/hr .[id number] EVELYN Administration Metoprolol Tartrat e 25 mg 10/23/21 09:00 10/23/21 09:27 Metoprolol Tartr ate 25 Mg Tablet PO 25 mg BID@0900,2100 EVELYN Administration Vitamin D 5,000 unit 10/23/21 09:00 10/23/21 09:27 Cholecalciferol (Vitamin D3) 5,000 Unit Tablet PO 5,000 unit DAILY EVELYN Administration Vitals/I&O/Wt Last Vital Signs Temp 97.8 F 10/23/21 13:45 Pulse 70 10/24/21 12:00 Resp 9 L 10/24/21 12:00 BP 118/75 10/24/21 12:00 Pulse Ox 95 10/24/21 02:52 10/23/21 10/24/21 10/24/21 22:59 06:59 14:59 Intake Total 360 / 1360 1000 / 2360 893.75 / 893.75 Output Total 550 / 1500 650 / 2150 600 / 600 Balance -190 / -140 350 / 210 293.75 / 293.75 Weight last 48 hrs Weight 114.124 kg Weight 97.976 kg Physical Exam Const: COMMON NORMALS: patient oriented x3 HENMT: COMMON NORMALS: normocephalic, atraumatic, hearing grossly normal bilaterally and external ears normal HEAD & SCALP: normocephalic and atraumatic EXTERNAL EAR: Yes external ears normal Eye: COMMON NORMALS: no scleral icterus GENERAL EYE: appearance normal, both eyes and all related structures Chest: COMMONS NORMALS: normal inspection of the chest and normal palpation of entire chest wall CHEST: Yes Symmetrical chest wall rise Resp: COMMON NORMALS: normal respiratory effort, No retractions, No use of accessory muscles and clear to auscultation bilaterally EFFORT & INSPECTION: Yes symmetric chest movement AUSCULTATION: clear to auscultation bilaterally Cardio: COMMON NORMALS: regular rate, regular rhythm, S1 normal heart sound present, S2 normal heart sound present, No gallops present (Cardio), No murmurs present (Cardio), No rub (Cardio) and Peripheral pulses 2+ throughout RATE: regular rate RHYTHM: regular rhythm HEART SOUNDS: S1 normal heart sound present and S2 normal heart sound present PERIPHERAL PULSES: Peripheral pulses 2+ throughout GI: COMMON NORMALS: Normal to inspection, nondistended, normoactive bowel sounds present, Soft to palpation, non-tender, No hepatosplenomegaly present and no masses AUSCULTATION: Yes normoactive bowel sounds PALPATION: Yes Soft to palpation and Yes No hepatosplenomegaly present RECTAL EXAM: Yes deferred Extremity: COMMON NORMALS: no clubbing, cyanosis or edema and no pedal edema Neuro: COMMON NORMALS: patient oriented x3 Data : 10/24/21 03:59 10/24/21 03:59 A&P Assessment and plan (1) ICD (implantable cardioverter-defibrillator) discharge: Status: Acute Plan 76-year-old male with past medical history of HFrEF EF of 35 % , s/p ICD, NICM hypertension, gout. With recurrent hospitalization in the last few months for defibrillator discharge. # Defibrillator discharge: Secondary to V. fib/V. tach Troponin trend without significant delta: EKG: Paced.Rhythm TSH normal: 2D echo: Normal LV cavity size , LVEF at 35% , moderate global hypokinesis, normal RV size and systolic function. S/p coronary angiogram 11/22 : Nonocclusive coronary artery disease. During the last hospital admission: Sotalol was discontinued as the patient failed to have similar episode after being on sotalol, and with appropriate dose adjustment, amiodarone po was started during last hospital admission. ( 400 mg po BID ) , but unfortunately patient had another similar episode on the day of admission. He underwent coronary angiogram this time to rule out any underlying coronary artery disease, CAG showed nonocclusive coronary artery disease. Case was discussed with Dr. Reddy at [facility] in [facility]. He is of the opinion that patient should be transferred to [place], for further management as they have more expertise in dealing with NICM associated recurrent VT / V. fib. [facility] transferc enter was reached out, currently they do not have any available beds. Current plan is to continue with amiodarone, metoprolol, and add mexiletine 150 mg p.o. 3 times daily. And monitor the patient today in the hospital, try for bed tomorrow again in the morning. # HFrEF : Currently compensated, s/p AICD placement Monitor intake output charting Daily weight K>4, MG >2 # HTN : Continue amlodipine, hydralazine, metoprolol #History of right upper lobe pulmonary nodule. Outpatient CT of the chest with IV contrast to be scheduled with his primary care physician # History of complex right renal cyst and left renal mass. Outpatient evaluation with his primary care physician #Vitamin D deficiency: Continue cholecalciferol 5000 units p.o. daily #Elevated TSH: With normal free T4: Repeat follow-up TSH in 2 weeks. # History of cholelithiasis # Gout: Continue allopurinol H/O P/E : Eliquis 2.5 MG p.o. twice daily BPH: Continue Flomax Hyperlipidemia. Lipitor 80 Mill grams by mouth daily at bedtime History of colon cancer, status post chemotherapy, status post colon resection. The patient indicates that he is in remission and no longer requires to be monitored for this medical condition by Dr. DAHL PPX is on Eliquis 2.5 Mill grams by mouth twice a day Attestations Medical Necessity Statement*: Patient is still in hospital for management of recurrent AICD discharge. Coding Level of Care Code Acute Roller Stainer for g Fwd Exam Comprehensive Diagnoses ICD (implantable cardioverter-defibrillator) discharge Z45.02
--- NOTE | 2021-10-24 19:38 | PC.NURSE ---
Received report from FEROZ Smith. Patient resting in bed watching TV. Discussed new medication Mexiletine. Patient verbalized understanding. Patient denies pain or needs at this time. No distress observed. Will continue to monitor.
[2021-10-24] MEDS: tamsulosin 0.4 mg Capsule PO (20:10)
[2021-10-24] MEDS: atorvastatin 40 mg Tablet 20 MG PO (20:10)
[2021-10-25] VITALS (8 sets, daily range): BP systolic 109–131; BP diastolic 72–83; PULSE 68–740; RESP 15–22; TEMP 36.1–36.4; O2SAT 97
[2021-10-25 03:34] LABS: Basophils % 0.7 %; Eosinophils # 0.2 10^3/uL (0.0-0.8); Hematocrit 42.2 % (42.0-52.0); Hemoglobin 13.3 g/dL (11.7-16.6); Lymphocytes # 1.4 10^3/uL (0.8-4.8); Lymphocytes % 23.5 %; Mean Corpuscular HGB Conc 31.5 g/dL (30.0-36.0); Mean Corpuscular Hemoglobin 28.4 pg (28.0-34.0); Mean Corpuscular Volume 90.2 fl (80-94); Mean Platelet Volume 10.2 fL (7.4-10.4); Monocytes # 0.5 10^3/uL (0.2-0.9); Monocytes % 8.7 %; Neutrophils % 63.4 %; Nucleated Red Blood Cells % 0 %; Platelet Count 186 10^3/cmm (130-400); Red Blood Count 4.68 10^6/uL (4.1-5.3); Red Cell Distribution Width 15.4 % (12.1-15.1)
[2021-10-25 03:51] LABS: Anion Gap 13.9 (5-19); Blood Urea Nitrogen 14 mg/dL (8-23); Calcium 9.1 mg/dL (8.5-10.5); Carbon Dioxide 25 mmol/L (22-29); Chloride 104 mmol/L (98-107); Glucose 103 mg/dL (65-115); Osmolality Calculated 289 mOsm/kg (285-295); Potassium 3.9 mmol/L (3.5-5.1); Sodium 139 mmol/L (136-145)
--- NOTE | 2021-10-25 06:10 | PC.NURSE ---
Shift Note Frequent safety and comfort rounds continue. Orders and/or nursing care completed as indicated. Patient monitored for response to intervention and treatment(s). Education provided includes mexilitine. Patient verbalized complete understanding. Denies pain or needs presently. No distress observed. Will continue to monitor.
--- NOTE | 2021-10-25 08:08 | PM.PN ---
Subjective Subjective: Patient is stable at this time.Denies chest pain. No more VT episodes Vitals/I&O/Wt Last Vital Signs Temp 97.8 F 10/23/21 13:45 Pulse 68 10/25/21 07:31 Resp 16 10/25/21 07:31 BP 120/76 10/25/21 03:01 Pulse Ox 97 10/25/21 07:31 10/24/21 10/25/21 10/25/21 22:59 06:59 14:59 Intake Total 480 / 1733.75 50 / 1783.75 Output Total 650 / 1250 500 / 1750 Balance -170 / 483.75 -450 / 33.75 Physical Exam Narrative: GENERAL: Patient is alert, awake and oriented x3. [] NECK: No jugular vein distension. [] HEENT: No cyanosis. No icterus. No pallor. [] HEART: Regular S1 and S2. No murmur, rub or gallop. [] LUNGS: Clear to auscultate bilaterally. [] ABDOMEN: Soft, nontender and nondistended. Positive bowel sounds. No guarding, rebound or tenderness. [] CENTRAL NERVOUS SYSTEM: Grossly nonfocal. [] EXTREMITIES: Lower extremities with 1+ edema bilaterally. Pulses palpable in the lower extremities, both dorsalis pedis and posterior tibial. [] Data : 10/25/21 02:36 10/25/21 02:36 A&P Assessment and plan (1) ICD (implantable cardioverter-defibrillator) discharge: Status: Acute (2) Cardiomyopathy, nonischemic: Status: Acute (3) Essential (primary) hypertension: Status: Acute (4) Ventricular tachycardia: Status: Acute Plan Patient has been having episodes of VT and multiple ICD discharges. His sotalol was recently switched to amiodarone. He does not have recent ischemic work-up. Coronary angiogram performed yesterday showed patent coronary arteries however there were ectatic. Continue amiodarone. Patient was started on mexiletine. Plan to transfer to [facility] today for possible EP study Thank you for involving us with care of this patient. We will continue to follow. Please call with questions. Attestations Medical Necessity Statement*: Care expected to cross 2 midnights. Coding Level of Care Code Acute Web Search Evaluator for [employer] Fwd Diagnoses ICD (implantable cardioverter-defibrillator) discharge Z45.02 Cardiomyopathy, nonischemic I42.8 Essential (primary) hypertension I10 Ventricular tachycardia I47.2
[2021-10-25] MEDS: amiodarone 200 mg Tablet 400 MG PO (09:07)
[2021-10-25] MEDS: cholecalciferol (vitamin D3) 5,000 unit Tablet 5000 UNIT PO (09:07)
[2021-10-25] MEDS: aspirin 81 mg EC Tablet PO (09:08)
[2021-10-25] MEDS: metoprolol tartrate 25 mg Tablet PO (09:08)
[2021-10-25] MEDS: allopurinol 100 mg Tablet PO (09:08)
[2021-10-25] MEDS: hyDRALAzine 50 mg Tablet PO (09:08)
[2021-10-25] MEDS: amlodipine 5 mg Tablet PO (09:09)
--- NOTE | 2021-10-25 12:45 | P.TS_ITS ---
Transfer Summary Providers Date of Admission: 10/23/21 19:32 Date of Discharge/Transfer: 10/25/21 Attending Provider at Admission: Enrrique Quiñonez DO Attending Provider at Transfer: Vincenzo Gayle MD Primary Care Provider: Priscilla Long MD Transfer Plans: Anticipated date of transfer: 10/25/21 . Diagnoses at Discharge Discharge Diagnosis (1) ICD (implantable cardioverter-defibrillator) discharge: Status: Acute (2) Cardiomyopathy, nonischemic: Status: Acute (3) Essential (primary) hypertension: Status: Acute (4) Ventricular tachycardia: Status: Acute Reason for Visit Reason for Visit Pace Maker has gone off twice Hospital Course Hospital Course 76-year-old male with past medical history of HFrEF EF of 35 % , s/p ICD, NICM? hypertension, gout, COVID prior history of ventricular fibrillation arrest which was defibrillated. CAG done at that time revealed mild nonobstructive CAD with an E.F of 45%.?He was started on sotalol and a ICD was placed.He did well for several years. for the last couple years and then 2 or 3 months ago began to have episodes of ventricular tachycardia requiring antitachycardia pacing and ventricular fibrillation.?On August 11 he was shocked by the device, came to the hospital and his sotalol was increased from 80 mg twice a day to 120 mg in the morning and 80 mg in the evening.?At that time an echo showed an ejection fraction of 35 to 40% and he was sent home. On the of this month, device went off again and he was switched to amiodarone 400 mg twice a day. He was again admitted on 10/22 with similar complaints with 2 episodes of shock. Prior to shock he felt lightheaded. He denied any chest pain diaphoresis shortness of breath. During this hospital stay he underwent cardiac cath which again showed nonocclusive coronary artery disease, Ectatic vessels.patient was started on mexiletine 150 mg p.o. every 8 hours on 10/24/2021, amiodarone has been continued. He had no similar episode during the hospital stay. For his history of heart failure with reduced ejection fraction he is fairly compensated. For his hypertension he has been continued on amlodipine hydralazine and met oprolol, and lisinopril. Case was discussed with EP physician at [facility] Jorge Kwon, for EP study and possible VT ablation.He has been accepted and is currently being transferred. Patient is currently stable for transfer. Most recent echo: Normal left ventricular size.? Moderately reduced left ?ventricle systolic function.? Left ventricular ejection fraction ?estimated at 35%.? Moderate global hypokinesis.? Indeterminate ?diastolic function. Normal right ventricular size and systolic function.Moderately increased left atrial size.When compared to previous echocardiogram dated 08/11/2021, ?there may not have been any significant change. Physical Exam Const: COMMON NORMALS: patient oriented x3 HENMT: COMMON NORMALS: normocephalic and atraumatic HEAD & SCALP: normocephalic and atraumatic Eye: GENERAL EYE: appearance normal, both eyes and all related structures Chest: COMMONS NORMALS: normal inspection of the chest and normal palpation of entire chest wall CHEST: Yes Symmetrical chest wall rise Resp: COMMON NORMALS: normal respiratory effort, No retractions, No use of accessory muscles and clear to auscultation bilaterally EFFORT & INSPECTION: Yes symmetric chest movement AUSCULTATION: clear to auscultation bilaterally Cardio: COMMON NORMALS: regular rate, regular rhythm, S1 normal heart sound present, S2 normal heart sound present, No gallops present (Cardio), No murmurs present (Cardio), No rub (Cardio) and Peripheral pulses 2+ throughout RATE: regular rate RHYTHM: regular rhythm HEART SOUNDS: S1 normal heart sound present and S2 normal heart sound present PERIPHERAL PULSES: Peripheral pulses 2+ throughout GI: COMMON NORMALS: Normal to inspection, nondistended, normoactive bowel sounds present, Soft to palpation, non-tender, No hepatosplenomegaly present and no masses AUSCULTATION: Yes normoactive bowel sounds PALPATION: Yes Soft to palpation and Yes No hepatosplenomegaly present RECTAL EXAM: Yes deferred Extremity: COMMON NORMALS: no clubbing, cyanosis or edema and no pedal edema Neuro: COMMON NORMALS: patient oriented x3 TS Data Studies Completed and Pending Pending at discharge Category Date Time Status CARPENTER INSPECTOR request for service Routine Exams 10/23/21 09:49 Taken Cardiac Stress Test MIBI [Sestamibi Stress Test Request Exams 10/22/21 23:50 Ordered ] Routine Angiotensin Converting Enzyme Timed Lab 10/22/21 19:31 Received BMP [Basic Metabolic Panel] AM LABS Lab 10/26/21 04:00 Ordered CBC Auto Diff [Complete Blood Count w/Auto] AM LABS Lab 10/26/21 04:00 Ordered Labs from last 24 hours 10/25/21 10/25/21 02:36 02:36 WBC 6.0 RBC 4.68 Hgb 13.3 Hct 42.2 MCV 90.2 MCH 28.4 MCHC 31.5 RDW 15.4 H Plt Count 186 MPV 10.2 Neut % (Auto) 63.4 Lymph % (Auto) 23.5 [place] % (Auto) 8.7 Eos % (Auto) 3.0 Baso % (Auto) 0.7 Neut # (Auto) 3.80 Lymph # (Auto) 1.4 [place] # (Auto) 0.5 Eos # (Auto) 0.2 Baso # (Auto) 0.0 Nucleated RBC % (auto) 0 Nucleated RBCs # 0.0 Sodium 139 Potassium 3.9 Chloride 104 Carbon Dioxide 25 Anion Gap 13.9 BUN 14 Creatinine 1.0 GFR Calculation Not Reportable Glucose 103 Calculated Osmolality 289 Calcium 9.1 Magnesium 2.0 Completed Studies During Hospitalization Category Date Time Status XR chest 1V portable [id number] Stat Exams 10/22/21 18:46 Completed CV. echo complete* [id number] Routine Ultrasound 10/23/21 23:50 Completed Laboratory Last Values WBC 6.0 10^3/uL (4.0-10.0) 10/25/21 02:36 RBC 4.68 10^6/uL (4.1-5.3) 10/25/21 02:36 Hgb 13.3 g/dL (11.7-16.6) 10/25/21 02:36 Hct 42.2 % (42.0-52.0) 10/25/21 02:36 MCV 90.2 fl (80-94) 10/25/21 02:36 MCH 28.4 pg (28.0-34.0) 10/25/21 02:36 MCHC 31.5 g/dL (30.0-36.0) 10/25/21 02:36 RDW 15.4 % (12.1-15.1) H 10/25/21 02:36 Plt Count 186 10^3/cmm (130-400) 10/25/21 02:36 MPV 10.2 fL (7.4-10.4) 10/25/21 02:36 Neut % (Auto) 63.4 % 10/25/21 02:36 Lymph % (Auto) 23.5 % 10/25/21 02:36 [place] % (Auto) 8.7 % 10/25/21 02:36 Eos % (Auto) 3.0 % 10/25/21 02:36 Baso % (Auto) 0.7 % 10/25/21 02:36 Neut # (Auto) 3.80 10^3/uL (1.8-7.7) 10/25/21 02:36 Lymph # (Auto) 1.4 10^3/uL (0.8-4.8) 10/25/21 02:36 [place] # (Auto) 0.5 10^3/uL (0.2-0.9) 10/25/21 02:36 Eos # (Auto) 0.2 10^3/uL (0.0-0.8) 10/25/21 02:36 Baso # (Auto) 0.0 10^3/uL (0.0-0.1) 10/25/21 02:36 Nucleated RBC % (auto) 0 % 10/25/21 02:36 Nucleated RBCs # 0.0 /100WBC 10/25/21 02:36 Sodium 139 mmol/L (136-145) 10/25/21 02:36 Potassium 3.9 mmol/L (3.5-5.1) 10/25/21 02:36 Chloride 104 mmol/L (98-107) 10/25/21 02:36 Carbon Dioxide 25 mmol/L (22-29) 10/25/21 02:36 Anion Gap 13.9 (5-19) 10/25/21 02:36 BUN 14 mg/dL (8-23) 10/25/21 02:36 Creatinine 1.0 mg/dL (0.7-1.2) 10/25/21 02:36 GFR Calculation Not Reportable 10/25/21 02:36 Glucose 103 mg/dL (65-115) 10/25/21 02:36 Calculated Osmolality 289 mOsm/kg (285-295) 10/25/21 02:36 Calcium 9.1 mg/dL (8.5-10.5) 10/25/21 02:36 Ionized Calcium Sukhdev 1.3 mmol/L (1.1-1.4) 10/22/21 23:19 Magnesium 2.0 mg/dL (1.7-2.3) 10/25/21 02:36 Total Bilirubin 0.8 mg/dL (0.15-1.2) 10/23/21 03:29 AST 21 U/L (0-40) 10/23/21 03:29 ALT 20 U/L (0-41) 10/23/21 03:29 Alkaline Phosphatase 82 IU/L (40-130) 10/23/21 03:29 Troponin T Baseline 32 ng/L (0-15) H 10/22/21 19:31 Troponin T 120 Minute 37.75 ng/L (0-15) H 10/22/21 21:24 Delta Troponin T 5.75 ABS# (0-10) 10/22/21 21:24 Troponin T Hi Sens 6Hr 34.00 ng/L (0-15) H 10/23/21 03:29 Troponin T Hi Sens 6Hr Delta 2.00 ng/L (0-12) 10/23/21 03:29 NT-Pro-B Natriuret Pep 120 pg/mL (0-125) 10/22/21 19:31 Total Protein 6.2 g/dL (6.6-8.7) L 10/23/21 03:29 Albumin 3.7 g/dL (3.5-5.2) 10/23/21 03:29 Globulin 2.5 g/dL (1.3-4.6) 10/23/21 03:29 Triglycerides 101 mg/dL (0-150) 10/23/21 03:29 Cholesterol 127 mg/dL (0-200) 10/23/21 03:29 LDL Cholesterol, Calc 65 mg/dL (50-129) 10/23/21 03:29 HDL Cholesterol 42 mg/dL (60-100) L 10/23/21 03:29 LDL/HDL Ratio 1.55 RATIO (0.00-3.22) 10/23/21 03:29 Cholesterol/HDL Ratio 3.02 mg/dL (1.0-5.00) 10/23/21 03:29 25-OH Vitamin D Total 19 ng/mL (30-100) L 10/22/21 19:31 TSH 5.25 uIU/mL (0.27-4.20) H 10/22/21 19:31 Free T4 1.34 ng/dL (0.82-1.77) 10/22/21 19:31 PTH Intact 77.6 pg/mL (15-65) H 10/22/21 19:31 Calcium (PTH Intact) 11.2 mg/dL (8.5-10.5) H 10/22/21 19:31 Urine Opiates Screen Negative ng/mL (Negative) 10/23/21 06:20 Ur Barbiturates Screen Negative ng/mL (Negative) 10/23/21 06:20 Ur Phencyclidine Scrn Negative ng/mL (Negative) 10/23/21 06:20 Ur Amphetamines Screen Negative ng/mL (Negative) 10/23/21 06:20 U Benzodiazepines Scrn Negative ng/mL (Negative) 10/23/21 06:20 Urine Cocaine Screen Negative ng/mL (Negative) 10/23/21 06:20 U Marijuana (THC) Screen Negative ng/mL (Negative) 10/23/21 06:20 Radiology Impressions Chest X-Ray 10/22/21 18:46 IMPRESSION: No acute infiltrate. Recent Clincial Data Last Vital Signs Temp 97.0 F L 10/25/21 08:00 Pulse 70 10/25/21 08:00 Resp 18 10/25/21 08:00 BP 131/79 10/25/21 08:00 Pulse Ox 97 10/25/21 08:00 Vital Signs Temp Pulse Resp BP Pulse Ox 10/25/21 08:00 97.0 F L 70 18 131/79 97 10/25/21 07:31 68 16 97 10/25/21 04:29 70 10/25/21 03:01 740 H 22 H 120/76 Intake & Output/Weight 10/23/21 10/24/21 10/25/21 10/26/21 06:59 06:59 06:59 06:59 Intake Total 570 / 570 2360 / 2360 1783.75 / 1783.75 118 / 118 Output Total 350 / 350 2150 / 2150 1750 / 1750 700 / 700 Balance 220 / 220 210 / 210 33.75 / 33.75 -582 / -582 Weight 114.124 kg Vitals Last Vital Signs Temp 97.0 F L 10/25/21 08:00 Pulse 70 10/25/21 08:00 Resp 18 10/25/21 08:00 BP 131/79 10/25/21 08:00 Pulse Ox 97 10/25/21 08:00 TS Medications Medications Acetaminophen (Acetaminophen 325 Mg Tablet) 650 mg PO Q6H PRN PRN Reason: Mild/Mod Pain Or Temp >/= 101 Allopurinol (Allopurinol 100 Mg Tablet) 100 mg PO BID [facility] Last Admin: 10/25/21 09:08 Dose: 100 mg Documented by: Amiodarone HCl (Amiodarone 200 Mg Tablet) 400 mg PO BID [facility] Last Admin: 10/25/21 09:07 Dose: 400 mg Documented by: Amlodipine Besylate (Amlodipine 5 Mg Tablet) 5 mg PO DAILY@08 [facility] Last Admin: 10/25/21 09:09 Dose: 5 mg Documented by: Apixaban (Apixaban 5 Mg Tablet) 2.5 mg PO BID [facility] Aspirin (Aspirin 81 Mg Ec Tablet) 81 mg PO DAILY [facility] Last Admin: 10/25/21 09:08 Dose: 81 mg Documented by: Atorvastatin Calcium (Atorvastatin 40 Mg Tablet) 20 mg PO DAILY@1999 [facility] Last Admin: 10/24/21 20:10 Dose: 20 mg Documented by: Hydralazine HCl (Hydralazine 50 Mg Tablet) 50 mg PO BID@ [facility] Last Admin: 10/25/21 09:08 Dose: 50 mg Documented by: Metoprolol Tartrate (Metoprolol Tartrate 25 Mg Tablet) 25 mg PO BID@09,2099 [facility] Last Admin: 10/25/21 09:08 Dose: 25 mg Documented by: Non-Formulary Medication (Mexiletine) 150 mg PO Q8H [facility] Last Admin: 10/25/21 09:06 Dose: 150 mg Documented by: Ondansetron HCl (Ondansetron 2 Mg/Ml Sdv 2 Ml) 4 mg IVP Q8H PRN PRN Reason: vomiting, or N/V if npo Tamsulosin HCl (Tamsulosin 0.4 Mg Capsule) 0.4 mg PO DAILY@1999 [facility] Last Admin: 10/24/21 20:10 Dose: 0.4 mg Documented by: Vitamin D (Cholecalciferol (Vitamin D3) 5,000 Unit Tablet) 5,000 unit PO DAILY [facility] Last Admin: 10/25/21 09:07 Dose: 5,000 unit Documented by: Discontinued Medications Amiodarone HCl (Amiodarone 200 Mg Tablet) 400 mg PO ONCE ONE Stop: 10/22/21 21:42 Last Admin: 10/22/21 21:47 Dose: 400 mg Documented by: Atorvastatin Calcium (Atorvastatin 40 Mg Tablet) 80 mg PO ONCE ONE Stop: 10/22/21 23:51 Last Admin: 10/23/21 00:32 Dose: 80 mg Documented by: Enoxaparin Sodium (Enoxaparin 40 Mg/0.4 Ml Syringe) 40 mg SUBCUT Q24H [facility] Last Admin: 10/22/21 23:56 Dose: Not Given Documented by: Fentanyl (Fentanyl 50 Mcg/Ml Inj 2ml) Confirm Administered Dose 100 mcg .ROUTE .STK-MED ONE Stop: 10/23/21 13:33 Heparin Sodium (Porcine) (Heparin 5,000 Unit/Ml Inj 1 Ml) Confirm Administered Dose 10,000 unit .ROUTE .STK-MED ONE Stop: 10/23/21 13:33 Sodium Chloride (Sodium Chloride 0.9%) 1,000 mls @ 75 mls/hr IV .[id number] [facility] Last Infusion: 10/24/21 09:37 Dose: Infused Documented by: Pamidronate Disodium 90 mg/ (Sodium Chloride) 510 mls @ 127.5 mls/hr IV ONCE ONE Stop: 10/23/21 03:49 Last Admin: 10/23/21 15:21 Dose: Not Given Documented by: Lidocaine HCl (Lidocaine 1%) Confirm Administered Dose 20 mls @ as directed .R OUTE .STK-MED ONE Stop: 10/23/21 13:33 Midazolam HCl (Midazolam 1 Mg/Ml Inj 2 Ml) Confirm Administered Dose 2 mg .ROUTE .STK-MED ONE Stop: 10/23/21 13:33 Nitroglycerin (Nitroglycerin 5 Mg/Ml Sdv 10 Ml) Confirm Administered Dose 50 mg .ROUTE .STK-MED ONE Stop: 10/23/21 13:33 Allergies No Known Allergies Allergy (Verified 10/23/21 08:29) Home Medications allopurinol 100 mg tablet 100 mg PO BID 11/05/19 [History Confirmed 10/23/21] aspirin 81 mg tablet,delayed release (Enteric Coated Aspirin) 81 mg PO DAILY@0800 11/05/19 [History Confirmed 10/23/21] hydralazine 50 mg tablet 50 mg PO BID@08,1999 tab 11/05/19 [History Confirmed 10/23/21] simvastatin 80 mg tablet 40 mg PO DAILY@199911/05/19 [History Confirmed 10/23/21] tamsulosin 0.4 mg capsule 0.4 mg PO DAILY@199911/12/20 [History Confirmed 10/23/21] apixaban 5 mg tablet 2.5 mg PO BID 08/10/21 [History Confirmed 10/23/21] glucosamine sulf dipot chlr,msm,chond 550 mg-C 30 mg-george 1 mg capsule (Glucosamine Chondroitin) 1 cap PO BID 08/10/21 [History Confirmed 10/23/21] amlodipine 5 mg tablet 5 mg PO DAILY@0800 #90 tab 10/14/21 [Rx Confirmed 10/23/21] magnesium 200 mg tablet 200 mg PO DAILY #60 tab 10/18/21 [Rx Confirmed 10/23/21] zolpidem 5 mg tablet (Ambien) 5 mg PO BEDTIME PRN #10 tab 10/18/21 [Rx Confirmed 10/23/21] amiodarone 400 mg tablet 400 mg PO BID 10/23/21 [History Confirmed 10/23/21] lisinopril 40 mg tablet 40 mg PO DAILY@0800 10/23/21 [History Confirmed 10/23/21] mexiletine 150 mg capsule 150 mg PO Q8H 10/24/21 [History Confirmed 10/24/21] mexiletine 150 mg capsule 150 mg PO Q8H 30 Days #90 cap 10/24/21 [Rx] Discharge Plan Discharge Patient Disposition: Xfer Other Condition: Stable Prescriptions: New mexiletine 150 mg capsule 150 mg PO Q8H 30 Days Qty: 90 0RF metoprolol tartrate 25 mg Tablet 25 mg PO BID@0900,2100 30 Days Qty: 60 1RF cholecalciferol (vitamin D3) 125 mcg (5,000 unit) Tablet 5,000 unit PO DAILY 30 Days Qty: 30 1RF Continued simvastatin 80 mg tablet 40 mg PO DAILY@1999 0RF hydralazine 50 mg tablet 50 mg PO BID@08,1999 0RF allopurinol 100 mg tablet 100 mg PO BID 0RF aspirin [Enteric Coated Aspirin] 81 mg tablet,delayed release (DR/EC) 81 mg PO DAILY@0800 0RF amlodipine 5 mg tablet 5 mg PO DAILY@0800 Qty: 90 3RF magnesium 200 mg tablet 200 mg PO DAILY Qty: 60 0RF zolpidem [Ambien] 5 mg tablet 5 mg PO BEDTIME PRN (Reason: insomnia) Qty: 10 0RF amiodarone 400 mg tablet 400 mg PO BID 0RF lisinopril 40 mg tablet 40 mg PO DAILY@0800 0RF tamsulosin 0.4 mg capsule 0.4 mg PO DAILY@2000 0RF apixaban 5 mg Tablet 2.5 mg PO BID 0RF Glucosamine Chondroitin 550-30-1 mg Capsule 1 cap PO BID 0RF mexiletine 150 mg Capsule 150 mg PO Q8H 30 Days Qty: 90 1RF Referrals: Priscilla Long MD [Primary Care Provider] - Discharge Diet: Cardiac Discharge Activity: Increase activity as tolerated Patient Instructions: Opioid Safety Transfer Attestations Time Spent in Transfer Care: greater than 30 min Specific Discharge Activities: educating patient, educating and/or supporting family/caregiver, discussing with pcp/other providers, discussing with machine adjuster leader case trim/social workers/dc planners, documenting/other paperwork and evaluating patient/reviewing data Status at Transfer: Cognitive status at transfer: cognitively intact ; Behavioral status at transfer: cooperative ; Functional status at transfer: independent ambulation ; Overall status at transfer: patient is back to baseline Quality Metrics Clinical Quality Measures [ No reported AMI, CVA or VTE this stay] Coding Level of Care Code Acute Pipe 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
--- NOTE | 2021-10-25 15:33 | PC.NURSE ---
Around 1450: Patient discharged from [facility] with EMS personnel to be transferred via ambulance to [facility]. Report given to Denys Perez RN. Home medications sent with patient. All other patient belongings sent with patient. Patient verbalized understanding of all discharge/transfer education.
[2021-10-26 17:22] LABS: Angiotensin Converting Enzyme 5 U/L (9-67)
== END 2021-10-25 15:00 | disposition short-term general hospital (02) | DRG 309 ==
LOC: ER 22:36 → CSU 23:35
PROVIDERS: Emergency Medicine; Internal Medicine; Admitting Provider Internal Medicine; Emergency Provider Emergency Medicine; PCP Family Medicine; Visit Provider Internal Medicine
DX: I47.2 Ventricular tachycardia (principal); I42.8 Other cardiomyopathies; I13.0 Hypertensive heart and chronic kidney disease with heart failure and stage 1 through stage 4 chronic kidney disease, or unspecified chronic kidney disease; I50.22 Chronic systolic (congestive) heart failure; Z45.02 Encounter for adjustment and management of automatic implantable cardiac defibrillator; N18.9 Chronic kidney disease, unspecified; Z86.16 Personal history of COVID-19; M10.9 Gout, unspecified; Z85.038 Personal history of other malignant neoplasm of large intestine; E78.5 Hyperlipidemia, unspecified; Z95.810 Presence of automatic (implantable) cardiac defibrillator; Z90.49 Acquired absence of other specified parts of digestive tract; E83.52 Hypercalcemia; Z86.711 Personal history of pulmonary embolism; Z79.82 Long term (current) use of aspirin; Z92.21 Personal history of antineoplastic chemotherapy
CPT/HCPCS: 36415; 71045; 80048; 80053; 80061; 80306; 82164; 82306; 82310; 82330; 83735; 83880; 83970; 84439; 84443; 84484; 85025; 93005; 93306; 93454; 96372; 99285; C1769; C1887; C1894; G0378; J1644; J1650; J2250; J3010; J3490; J7030; Q9967

== ENCOUNTER → 2021-11-30 13:58 | Outpatient (BNVA) | payer OTHER, SELFPAY | PROVIDERS: PCP Family Medicine; Visit Provider Nurse Practitioner Family | DX: I47.2 Ventricular tachycardia (principal); I42.8 Other cardiomyopathies; Z79.82 Long term (current) use of aspirin; Z87.891 Personal history of nicotine dependence | CPT/HCPCS: 36415; 80048; 83735; 99214 ==

== ENCOUNTER → 2022-03-12 09:51 | Outpatient (BNVA) | payer OTHER, SELFPAY | PROVIDERS: PCP Family Medicine; Visit Provider Internal Medicine | DX: Z45.02 Encounter for adjustment and management of automatic implantable cardiac defibrillator (principal) | CPT/HCPCS: 93283 ==

== ENCOUNTER → 2022-04-09 11:23 | Outpatient (BNVA) | payer OTHER, SELFPAY | PROVIDERS: PCP Family Medicine; Visit Provider Internal Medicine | DX: I10 Essential (primary) hypertension (principal); R06.02 Shortness of breath; I25.10 Atherosclerotic heart disease of native coronary artery without angina pectoris; I42.8 Other cardiomyopathies; I47.2 Ventricular tachycardia; E78.5 Hyperlipidemia, unspecified; Z87.891 Personal history of nicotine dependence | CPT/HCPCS: 36415; 80048; 83735; 83880; 84100; 85025; 99214 ==

== ENCOUNTER 2022-04-17 18:17 | Emergency (ER) | payer OTHER, MEDICARE, SELFPAY ==
[2022-04-17 18:45] VITALS: BP 140/84; PULSE 70; RESP 18; TEMP 36.4; O2SAT 96; BMI 31.5
--- NOTE | 2022-04-17 19:02 | ED_ITS ---
Documented by User: MIKIE Newton 04/17/22 22:22 HPI - Fall General: Chief Complaint: Fall Stated Complaint: Back pain, Fall Time Seen by Provider: 04/17/22 19:02 History of Present Illness: Patient is a 77-year-old male comes to the ED after fall. Patient says he was carrying a table up the stairs and lost his balance and fell backwards landing on his back and his right ankle truck the steps. Patient says he was on the first step and fell backwards onto a brick paved sidewalk. He is now having back pain and right ankle pain. Denies any head trauma, neck pain or loss of consciousness. Patient does take a blood thinner daily. Most of his pain is in his lower back. He rates his pain currently an 8 out of 10. He has some swelling and pain in right ankle but he has been able to ambulate on it. Denies any pain radiating down into his legs. Denies any bladder or bowel incontinence, pelvic anesthesia or any weakness to lower extremities. Associated symptoms-after fall: Denies abdominal pain, chest pain, headache(s), hematuria or neck pain Review of Systems Const: Denies: fever(s), chills or fatigue Eyes: Denies: change in vision or eye discomfort ENMT: Denies: throat pain, odynophagia, nasal discharge or nasal congestion Card: Denies: chest pain, palpitations, edema, swelling of feet/ankles, dyspnea on exertion or orthopnea Resp: Denies: dyspnea, productive cough or non-productive cough GI: Denies: abdominal pain, nausea, vomiting, diarrhea, constipation or hematochezia : Denies: flank pain, difficulty urinating, dysuria or hematuria Musc: Reports: back pain, extremity pain (Right ankle) and extremity swelling (Right ankle); Denies: neck pain Skin/Breast: Denies: rash or new lesions Neuro: Denies: headache(s), numbness in extremities or weakness in extremities PFS ED PFSH: Medical History Cardiomyopathy, nonischemic Chronic kidney disease (CKD) COVID-19 Essential (primary) hypertension Gout History of colon cancer Hyperlipemia Hypomagnesemia ICD (implantable cardioverter-defibrillator) discharge ICD (implantable cardioverter-defibrillator) in place Nonischemic cardiomyopathy Ventricular fibrillation, paroxysmal Ventricular tachycardia Surgical History History of colon resection History of ear surgery Family History Father Cancer Dementia Social History Smoking and tobacco status: former smoker Alcohol intake: current Alcohol intake frequency: holidays/special occasions only Marital status: Current occupational status: retired Physical Exam Const: COMMON NORMALS: patient oriented x3 and alert GENERAL APPEARANCE: cooperative HENMT: COMMON NORMALS: normocephalic HEAD & SCALP: normocephalic MOUTH: Normal oral and palatal mucosa present THROAT: posterior oropharynx normal and uvula midline Eye: COMMON NORMALS: Equal, round and reactive pupils present, EOMs intact bilaterally and conjunctivae normal CONJUNCTIVA: Yes conjunctivae normal PUPIL: Yes Equal, round and reactive pupils present Neck/C-Spine: COMMON NORMALS: supple GENERAL: Yes normal visual inspection Resp: COMMON NORMALS: normal respiratory effort, No retractions, No use of accessory muscles and clear to auscultation bilaterally AUSCULTATION: clear to auscultation bilaterally Cardio: COMMON NORMALS: regular rate, regular rhythm, S1 normal heart sound p resent, S2 normal heart sound present, No gallops present (Cardio), No clicks present (Cardio), No murmurs present (Cardio) and Peripheral pulses 2+ throughout RATE: regular rate RHYTHM: regular rhythm HEART SOUNDS: S1 normal heart sound present and S2 normal heart sound present PERIPHERAL PULSES: Peripheral pulses 2+ throughout GI: COMMON NORMALS: Normal to inspection, nondistended, normoactive bowel sounds present, Soft to palpation, non-tender and no masses PALPATION: Yes Soft to palpation : COMMON NORMALS: Yes no CVA tenderness BLADDER/KIDNEY EXAM: Yes no CVA tenderness Back/Pelvis: COMMON NORMALS: no CVA tenderness LUMBAR SPINE/LOWER BACK: Yes paraspinal muscle tenderness Lumbar paraspinal muscle tenderness: right Extremity: NARRATIVE EXTREMITY EXAM: Right ankle?swelling over the lateral malleolus but no deformity noted. Neurovascular tact. Neuro: COMMON NORMALS: patient oriented x3, CN's II-XII intact bilaterally, moves all extremities, no focal motor deficits and no sensory deficits noted SENSORIUM/ORIENTATION: Yes alert COORDINATION/BALANCE: [id number] test normal SPEECH: speech normal GAIT: Yes Normal gait present COORDINATION: [id number] test normal Skin: GENERAL SKIN EXAM: dry skin Course Vital Signs: Vital signs: Vital Signs Temperature 98.1 F 04/17/22 22:14 Pulse Rate 91 04/17/22 22:14 Respiratory Rate 22 H 04/17/22 22:14 Blood Pressure 157/92 04/17/22 22:14 Pulse Oximetry 94 04/17/22 22:14 Oxygen Delivery Me thod Nasal Cannula 04/17/22 18:45 MDM - Fall Medical Decision Making Patient is a 77-year-old male comes to the ED after fall. Patient is on a blood thinner but denies any head trauma or loss of consciousness. His main complaint is lower back pain and right ankle pain. Vitals are stable. Patient has some lumbar paraspinal muscle tenderness bilaterally and his neuro exam is benign. CT of head showed no acute findings. X-ray of right ankle showed no acute fractures. Lumbar spine x-ray showed an L1 compression fracture. I placed an order with rehabilitation caseworker patient be referred to Dr. Painting for follow-up. TLSO brace order placed. He was stable for discharge home and sent home with a prescription for hydrocodone for pain. He was told rehabilitation caseworker will contact him in the next several days set up an appointment with the orthospine specialist Dr. Painting for follow-up. Patient understood and agreed with plan. Lab Data Radiology Impressions Ankle X-Ray 04/17/22 19:08 IMPRESSION: Soft tissue injury without osseous injury. Head CT 04/17/22 19:08 IMPRESSION: 1. No acute intracranial abnormality. 2. Chronic lacunar infarcts in the bilateral basal ganglia. Lumbar Spine X-Ray 04/17/22 19:08 IMPRESSION: 1. L1 compression fracture of indeterminate age. 2. Moderate lower lumbar degenerative disease. Discharge Plan Discharge Patient Disposition: Home Clinical Impression: Compression fracture of lumbar vertebra Qualifiers: Encounter type: initial encounter Lumbar vertebra fracture level: L1 Qualified Code(s): S32.010A - Wedge compression fracture of first lumbar vertebra, initial encounter for closed fracture Pain in right ankle Qualifiers: Chronicity: acute Qualified Code(s): M25.571 - Pain in right ankle and joints of right foot Condition: Stable Prescriptions: New methocarbamol 750 mg tablet 750 mg PO Q8H PRN (Reason: muscle spasms and pain) Qty: 30 0RF No Action amiodarone 400 mg tablet 400 mg PO DAILY metoprolol tartrate 25 mg tablet 37.5 mg PO BID simvastatin 80 mg tablet 40 mg PO DAILY@2000 hydralazine 50 mg tablet 50 mg PO BID@0800,2000 allopurinol 100 mg tablet 100 mg PO BID aspirin [Enteric Coated Aspirin] 81 mg tablet,delayed release (DR/EC) 81 mg PO DAILY@0800 amlodipine 5 mg tablet 5 mg PO DAILY@0800 Qty: 90 3RF mexiletine 150 mg capsule 150 mg PO Q8H Qty: 270 3RF magnesium 200 mg tablet 200 mg PO DAILY Qty: 60 0RF zolpidem [Ambien] 5 mg tablet 5 mg PO BEDTIME PRN (Reason: insomnia) Qty: 10 0RF cholecalciferol (vitamin D3) 125 mcg (5,000 unit) Tablet 5,000 unit PO DAILY 30 Days Qty: 30 1RF tamsulosin 0.4 mg capsule 0.4 mg PO DAILY@2000 Glucosamine Chondroitin 550-30-1 mg Capsule 1 cap PO BID apixaban 5 mg tablet 5 mg PO BID Discharge Orders: Discharge ED (Routine); Ordered 04/17/22 Ordered By: Kemar Pop Referrals: Priscilla Long MD [Primary Care Provider] - Discharge Diet: Regular Discharge Activity: Limit activity as instructed Patient Instructions: Thoracolumbar Fracture (ED), Opioid Safety Activity Restrictions/Additional Instructions: Follow-up with medical provider as directed. Case management should be contacte d in the next several days to set up an appointment with the orthospine specialist Dr. Painting for further evaluation. Wear TLSO brace, rest and limit any lifting to under 5 pounds. Take medications as prescribed. Return to the ER or your medical provider if condition worsens. Please read and understand discharge instructions. Thank you for choosing [facility] for your healthcare needs today. Please realize this is an emergency room and that we are providing you with a medical screening exam and this may not be complete and all inclusive of all the testing and or work up that you may need to determine your ailment or severity of your illness. It is very important that you follow up as instructed or that you return to the Emergency Department should you have concerns or if your c ondition changes or worsens in any way. 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 [employer] Exam Comprehensive Documented by User: Chava Pena, 04/18/22 14:51 HPI - Fall General: Chief Complaint: Fall Stated Complaint: Back pain, Fall Time Seen by Provider: 04/17/22 19:02 [facility] ED PFSH: Medical History Cardiomyopathy, nonischemic Chronic kidney disease (CKD) COVID-19 Essential (primary) hypertension Gout History of colon cancer Hyperlipemia Hypomagnesemia ICD (implantable cardioverter-defibrillator) discharge ICD (implantable cardioverter-defibrillator) in place Nonischemic cardiomyopathy Ventricular fibrillation, paroxysmal Ventricular tachycardia Surgical History History of colon resection History of ear surgery Family History Father Cancer Dementia Social History Smoking and tobacco status: former smoker Alcohol intake: current Alcohol intake frequency: holidays/special occasions only Marital status: Current occupational status: retired Course Vital Signs: Vital signs: Vital Signs Temperature 98.1 F 04/17/22 22:14 Pulse Rate 91 04/17/22 22:14 Respiratory Rate 22 H 04/17/22 22:14 Blood Pressure 157/92 04/17/22 22:14 Pulse Oximetry 94 04/17/22 22:14 Oxygen Delivery Me thod Nasal Cannula 04/17/22 18:45 MDM - Fall Medical Decision Making Patient is a 77-year-old male comes to the ED after fall. Patient is on a blood thinner but denies any head trauma or loss of consciousness. His main complaint is lower back pain and right ankle pain. Vitals are stable. Patient has some lumbar paraspinal muscle tenderness bilaterally and his neuro exam is benign. CT of head showed no acute findings. X-ray of right ankle showed no acute fractures. Lumbar spine x-ray showed an L1 compression fracture. I placed an order with rehabilitation caseworker patient be referred to Dr. Painting for follow-up. TLSO brace order placed. He was stable for discharge home and sent home with a prescription for hydrocodone for pain. He was told rehabilitation caseworker will contact him in the next several days set up an appointment with the orthospine specialist Dr. Painting for follow-up. Patient understood and agreed with plan. This patient was initially evaluated by Mr. Kiesha PA-C. I agree with these history, evaluation, and workup. Lab Data Radiology Impressions Ankle X-Ray 04/17/22 19:08 IMPRESSION: Soft tissue injury without osseous injury. Head CT 04/17/22 19:08 IMPRESSION: 1. No acute intracranial abnormality. 2. Chronic lacunar infarcts in the bilateral basal ganglia. Lumbar Spine X-Ray 04/17/22 19:08 IMPRESSION: 1. L1 compression fracture of indeterminate age. 2. Moderate lower lumbar degenerative disease. Discharge Plan Discharge Patient Disposition: Home Clinical Impression: Compression fracture of lumbar vertebra Qualifiers: Encounter type: initial encounter Lumbar vertebra fracture level: L1 Qualified Code(s): S32.010A - Wedge compression fracture of first lumbar vertebra, initial encounter for closed fracture Pain in right ankle Qualifiers: Chronicity: acute Qualified Code(s): M25.571 - Pain in right ankle and joints of right foot Condition: Stable Prescriptions: New methocarbamol 750 mg tablet 750 mg PO Q8H PRN (Reason: muscle spasms and pain) Qty: 30 0RF No Action amiodarone 400 mg tablet 400 mg PO DAILY metoprolol tartrate 25 mg tablet 37.5 mg PO BID simvastatin 80 mg tablet 40 mg PO DAILY@1999 hydralazine 50 mg tablet 50 mg PO BID@0800,1999 allopurinol 100 mg tablet 100 mg PO BID aspirin [Enteric Coated Aspirin] 81 mg tablet,delayed release (DR/EC) 81 mg PO DAILY@0800 amlodipine 5 mg tablet 5 mg PO DAILY@0800 Qty: 90 3RF mexiletine 150 mg capsule 150 mg PO Q8H Qty: 270 3RF magnesium 200 mg tablet 200 mg PO DAILY Qty: 60 0RF zolpidem [Ambien] 5 mg tablet 5 mg PO BEDTIME PRN (Reason: insomnia) Qty: 10 0RF cholecalciferol (vitamin D3) 125 mcg (5,000 unit) Tablet 5,000 unit PO DAILY 30 Days Qty: 30 1RF tamsulosin 0.4 mg capsule 0.4 mg PO DAILY@2000 Glucosamine Chondroitin 550-30-1 mg Capsule 1 cap PO BID apixaban 5 mg tablet 5 mg PO BID Discharge Orders: Discharge ED (Routine); Ordered 04/17/22 Ordered By: Kemar Pop Referrals: Priscilla Long MD [Primary Care Provider] - Discharge Diet: Regular Discharge Activity: Limit activity as instructed Patient Instructions: Thoracolumbar Fracture (ED), Opioid Safety Activity Restrictions/Additional Instructions: Follow-up with medical provider as directed. Case management should be contacted in the next several days to set up an appointment with the orthospine specialist Dr. Painting for further evaluation. Wear TLSO brace, rest and limit any lifting to under 5 pounds. Take medications as prescribed. Return to the ER or your medical provider if condition worsens. Please read and understand discharge instructions. Thank you for choosing [facility] for your healthcare needs today. Please realize this is an emergency room and that we are providing you with a medical screening exam and this may not be complete and all inclusive of all the testing and or work up that you may need to determine your ailment or severity of your illness. It is very important that you follow up as instructed or that you return to the Emergency Department should you have concerns or if your condition changes or worsens in any way. 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 [employer] Exam Comprehensive
--- NOTE | 2022-04-17 19:08 | XRR_ITS ---
PROCEDURE INFORMATION: Exam: XR Right Ankle Exam date and time: 04/17/2022 7:15 PM Age: 77 years old Clinical indication: Injury or trauma; Fall; Blunt trauma; Injury date: 04/17/22; Patient HX: PT fell backwards onto a brick paved sidewalk. 04/17/22. C/O right ankle pain and swelling; Additional info: Fall with ankle pain TECHNIQUE: Imaging protocol: Radiologic exam of the Right ankle. Views: 3 or more views. COMPARISON: No relevant prior studies available. FINDINGS: Bones/joints: No fracture. No dislocation. The ankle mortise is intact. There is a small calcaneal plantar spur. Soft tissues: There is diffuse superficial soft tissue swelling at the ankle, in the distal calf, and the visualized portion of the foot. XR/XR ankle RT min 3V* [id number] IMPRESSION: Soft tissue injury without osseous injury.
--- NOTE | 2022-04-17 19:08 | CTR_ITS ---
PROCEDURE INFORMATION: Exam: CT Head Without Contrast Exam date and time: 04/17/2022 7:30 PM Age: 77 years old Clinical indication: Pain; Headache; Additional info: Fall, denies loc, PT on blood thinner TECHNIQUE: Imaging protocol: Computed tomography of the head without contrast. Radiation optimization: All CT scans at this facility use at least one of these dose optimization techniques: automated exposure control; mA and/or kV adjustment per patient size (includes targeted exams where dose is matched to clinical indication); or iterative reconstruction. COMPARISON: No relevant prior studies available. RADIATION DOSE METRICS: Total DLP (mGy-cm): 1053.35 FINDINGS: Brain: There is diffuse cerebral atrophy and chronic microvascular white matter disease. There are focal hypodensities in the bilateral basal ganglia compatible with old lacunar infarcts. There is no acute intracranial hemorrhage. Cerebral ventricles: There is mild ex vacuo dilation of the lateral ventricles. The basal cisterns are unremarkable. Paranasal sinuses: The paranasal sinuses are clear. Mastoid air cells: Left mastoidectomy. Bones/joints: The calvarium is intact. Soft tissues: The visible extracranial soft tissues are unremarkable. CT/CT head wo con* [id number] IMPRESSION: 1. No acute intracranial abnormality. 2. Chronic lacunar infarcts in the bilateral basal ganglia.
--- NOTE | 2022-04-17 19:08 | XRR_ITS ---
PROCEDURE INFORMATION: Exam: XR Lumbosacral Spine Exam date and time: 04/17/2022 7:21 PM Age: 77 years old Clinical indication: Injury or trauma; Fall; Blunt trauma (contusions or hematomas); Additional info: Fall with low back pain TECHNIQUE: Imaging protocol: Radiologic exam of the lumbosacral spine. Views: 2 or 3 views. COMPARISON: No relevant prior studies available. FINDINGS: Bones/joints: Spinal alignment is normal. Mild L1 superior endplate compression fracture. No posterior cortical retropulsion. There is moderate degenerative disease in the lower lumbar spine. The visible portion of the pelvis and sacrum is intact. Soft tissues: Unremarkable. Organs: There is a calcification in the right upper quadrant suggesting a gallstone. Vasculature: Aortic calcification noted. XR/XR lumbar spine 2-3V* [id number] IMPRESSION: 1. L1 compression fracture of indeterminate age. 2. Moderate lower lumbar degenerative disease.
[2022-04-17] MEDS: HYDROcodone-acetaminophen 7.5-325 mg Tablet 1 TAB PO (19:44)
[2022-04-17 22:06] VITALS: RESP 18
[2022-04-17] MEDS: HYDROmorphone 1 mg/mL INJ 1 mL 0.5 MG SUBCUT (22:06)
[2022-04-17 22:07] VITALS: RESP 20; O2SAT 98
[2022-04-17] MEDS: oxyCODONE-APAP 5-325 mg Tablet 2 TAB PO (22:07)
[2022-04-17 22:14] VITALS: BP 157/92; PULSE 91; RESP 22; TEMP 36.7; O2SAT 94
--- NOTE | 2022-04-19 15:18 | DCPLANNER ---
Addendum entered by Patt Galindo 05/14/22 08:50: Patient had a follow up appointment with ortho - patient did attend appointment Addendum entered by Patt Galindo 04/29/22 08:30: Patient has a follow up appointment scheduled for , May 06, 2022 at 1:[address] Painting at ortho. Clinic will call patient with appointment information. Addendum entered by Patt Galindo 04/19/22 15:20: infrastructure project manager sent patients information to Sasha with [facility],for the authorization process to be started. Original Note: infrastructure project manager had message to schedule a follow up appointment for patient with ortho. infrastructure project manager sent patients information to the front office staff at ortho. Patients information will be printed and reviewed. Clinic will call patient with appointment information.
== END 2022-04-17 22:16 | disposition home or self-care (01) ==
PROVIDERS: Emergency Provider Physician Assistant; PCP Family Medicine
DX: S32.010A Wedge compression fracture of first lumbar vertebra, initial encounter for closed fracture (principal); M25.571 Pain in right ankle and joints of right foot; Z79.82 Long term (current) use of aspirin; I10 Essential (primary) hypertension; Z85.038 Personal history of other malignant neoplasm of large intestine; E78.5 Hyperlipidemia, unspecified; Z95.810 Presence of automatic (implantable) cardiac defibrillator; Z87.891 Personal history of nicotine dependence; W10.8XXA Fall (on) (from) other stairs and steps, initial encounter
CPT/HCPCS: 70450; 72100; 73610; 96372; 99285; J1170

== ENCOUNTER 2022-05-06 06:00 | Outpatient (CLI) | payer OTHER, SELFPAY | END 2022-05-06 23:00 | LOC: RAD 06-21 13:11 | PROVIDERS: PCP Family Medicine; Visit Provider Family Medicine | DX: S32.000A Wedge compression fracture of unspecified lumbar vertebra, initial encounter for closed fracture (principal); W10.8XXA Fall (on) (from) other stairs and steps, initial encounter; Y93.89 Activity, other specified | CPT/HCPCS: 72100; 99203 ==

== ENCOUNTER → 2022-06-03 13:08 | Outpatient (BNVA) | payer OTHER, SELFPAY | PROVIDERS: PCP Family Medicine; Visit Provider Orthopaedic Surgery | DX: S32.010D Wedge compression fracture of first lumbar vertebra, subsequent encounter for fracture with routine healing (principal); X58.XXXD Exposure to other specified factors, subsequent encounter | CPT/HCPCS: 99212; 99213 ==

== ENCOUNTER → 2022-08-06 08:22 | Outpatient (BNVA) | payer OTHER, SELFPAY | PROVIDERS: PCP Family Medicine; Visit Provider Internal Medicine | DX: I25.10 Atherosclerotic heart disease of native coronary artery without angina pectoris (principal); I42.8 Other cardiomyopathies; Z95.810 Presence of automatic (implantable) cardiac defibrillator; E78.5 Hyperlipidemia, unspecified; I47.20 Ventricular tachycardia, unspecified; Z87.891 Personal history of nicotine dependence; I12.9 Hypertensive chronic kidney disease with stage 1 through stage 4 chronic kidney disease, or unspecified chronic kidney disease; N18.9 Chronic kidney disease, unspecified | CPT/HCPCS: 99214 ==

== ENCOUNTER → 2022-09-17 08:36 | Outpatient (BNVA) | payer OTHER, SELFPAY | PROVIDERS: PCP Family Medicine; Visit Provider Nurse Practitioner Family | DX: I47.20 Ventricular tachycardia, unspecified (principal); I42.8 Other cardiomyopathies; I12.9 Hypertensive chronic kidney disease with stage 1 through stage 4 chronic kidney disease, or unspecified chronic kidney disease; N18.9 Chronic kidney disease, unspecified; Z87.891 Personal history of nicotine dependence; Z95.810 Presence of automatic (implantable) cardiac defibrillator | CPT/HCPCS: 36415; 80048; 93283; 99214 ==